=== PATIENT | female | born 1970 | race African-American/Black ===

== ENCOUNTER 2018-11-05 21:35 | Emergency (ER) | payer OTHER ==
[~2018-11-05] VITALS: Ht 165.1 cm; Wt 54.0 kg
[~2018-11-05 21:35] MED LIST: LEVAQUIN500 MG ORAL; MONTELUKAST SOD10 MG
[2018-11-05 21:45] VITALS: BP 98/62
--- NOTE | 2018-11-05 21:45 | NUR ---
ED Nurse Note: Pt's aged or disabled carer report Pt haven't have BM for 2 weeks. pt is alert but not oriented, pt came in with caregiver. ermd on bedside. will continue to monitor.
--- NOTE | 2018-11-05 21:58 | Emergency Room Report ---
History of Present Illness General Chief Complaint: Constipation Source: Caregiver Present Illness HPI This is a 48-year-old female with abdominal delay. She has a history of recurrent sigmoid volvulus. She presents with chief complaint of constipation for 2 days. No pain. She was brought in by her relocation commissioner. This is similar to previous presentation of blockage. She never had elective surgery done. No nausea no vomiting. No diarrhea. No bowel movement for 2 days. Denies any other complaint. Allergies: Coded Allergies: ERYTHROMYCIN BASE (Unverified Allergy, Unknown, 01/31/15) Patient History Past Medical History: asthma Past Surgical History: none Pertinent Family History: none Social History: Denies: smoking Now: No Immunizations: other Reviewed Nursing Documentation: PMH: Agreed; PSxH: Agreed Nursing Documentation-PMH Hx Asthma: Yes Hx Cancer: No Hx Gastrointestinal Problems: No Review of Systems Eye: Denies: eye pain, blurred vision ENT: Denies: ear pain, nose congestion, throat swelling Respiratory: Denies: cough, shortness of breath Cardiovascular: Denies: chest pain, palpitations Gastrointestinal: Reports: constipation; Denies: abdominal pain, diarrhea, nausea, vomiting Musculoskeletal: Denies: back pain, joint pain Skin: Denies: rash Neurological: Denies: headache, numbness Endocrine: Denies: increased thirst, increased urine Hematologic/Lymphatic: Denies: easy bruising All Other Systems: negative except mentioned in HPI Physical Exam Vital Signs Date Time Temp Pulse Resp B/P (MAP) Pulse Ox O2 Delivery O2 Flow Rate FiO2 11/05/18 21:41 97.9 80 18 98/62 98 Room Air vitals normal Sp02 EP Interpretation: reviewed, normal General Appearance: well appearing, no apparent distress, alert Head: normocephalic, atraumatic Eyes: bilateral eye PERRL, bilateral eye EOMI ENT: hearing grossly normal, normal pharynx Neck: full range of motion, supple, no meningismus Respiratory: chest non-tender, lungs clear, normal breath sounds Cardiovascular #1: regular rate, rhythm, no murmur Gastrointestinal: normal bowel sounds, non tender, no mass, no organomegaly, no bruit, non-distended Musculoskeletal: back normal, gait/station normal, normal range of motion Psychiatric: mood/affect normal Skin: warm/dry Medical Decision Making Diagnostic Impression: Primary Impression: Partial bowel obstruction Qualified Codes: K56.600 - Partial intestinal obstruction, unspecified as to cause Additional Impressions: UTI (urinary tract infection) Qualified Codes: N30.00 - Acute cystitis without hematuria Constipation Qualified Codes: K59.00 - Constipation, unspecified Mentally disabled ER Course This is a 48-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 She presents with constipation and abdominal pain. CT scan is equivocal for partial obstruction versus vomitus versus constipation. She does have large colonic stool burden. I discussed the case with the radiologist going for CT scan. He recommend another CT scan with rectal contrast. I did gave the patient an enema prior to the CT scan. She did have one large hard stool size of a tennis ball. Second CT scan show constipation been no evidence of obstruction. Patient felt better. We'll discharge home. Laboratory Tests Test 11/05/18 22:10 11/05/18 22:13 White Blood Count 6.7 K/UL (4.8-10.8) Red Blood Count 4.67 M/UL (4.20-5.40) Hemoglobin 12.3 G/DL (12.0-16.0) Hematocrit 38.4 % (37.0-47.0) Mean Corpuscular Volume 82 FL (80-99) Mean Corpuscular Hemoglobin 26.4 PG (27.0-31.0) L Mean Corpuscular Hemoglobin Concent 32.1 G/DL (32.0-36.0) Red Cell Distribution Width 11.4 % (11.6-14.8) L Platelet Count 282 K/UL (150-450) Mean Platelet Volume 6.4 FL (6.5-10.1) L Neutrophils (%) (Auto) 55.6 % (45.0-75.0) Lymphocytes (%) (Auto) 28.5 % (20.0-45.0) Monocytes (%) (Auto) 12.5 % (1.0-10.0) H Eosinophils (%) (Auto) 2.4 % (0.0-3.0) Basophils (%) (Auto) 1.0 % (0.0-2.0) Prothrombin Time 11.2 SEC (9.30-11.50) Prothromb Time International Ratio 1.1 (0.9-1.1) Activated Partial Thromboplast Time 25 SEC (23-33) Sodium Level 140 MMOL/L (136-145) Potassium Level 3.8 MMOL/L (3.5-5.1) Chloride Level 106 MMOL/L (98-107) Carbon Dioxide Level 28 MMOL/L (21-32) Anion Gap 6 mmol/L (5-15) Blood Urea Nitrogen 11 mg/dL (7-18) Creatinine 1.0 MG/DL (0.55-1.30) Estimat Glomerular Filtration Rate > 60 mL/min (>60) Glucose Level 84 MG/DL (74-106) Calcium Level 8.7 MG/DL (8.5-10.1) Urine Color Pale yellow Urine Appearance Slightly cloudy Urine pH 6.5 (4.5-8.0) Urine Specific [place] 1.010 (1.005-1.035) Urine Protein Negative (NEGATIVE) Urine Glucose (UA) Negative (NEGATIVE) Urine Ketones Negative (NEGATIVE) Urine Blood 2+ (NEGATIVE) H Urine Nitrite Positive (NEGATIVE) H Urine Bilirubin Negative (NEGATIVE) Urine Urobilinogen Normal MG/DL (0.0-1.0) Urine Leukocyte Esterase 1+ (NEGATIVE) H Urine RBC 2-4 /HPF (0 - 2) H Urine WBC 2-4 /HPF (0 - 2) Urine Squamous Epithelial Cells Occasional /LPF Urine Bacteria Many /HPF (NONE) H Urine HCG, Qualitative Negative (NEGATIVE) Lab Results Impression labs unremarkable CT/MRI/US Diagnostic Results CT/MRI/US Diagnostic Results #1: Imaging Test Ordered: CT abdomen and pelvis Impression Large colonic stool burden within the ascending through transverse segment. There is a redundant loop of sigmoid colon which is mildly dilated with air distention measuring up to 8 cm caliber with a somewhat abrupt transition to a small caliber in the lower central abdomen equivocal for prominent contraction or partial obstruction, with moderate distention of the downstream rectum noted. Correlate with clinical findings. No visualized free air. There is mild free fluid which may be reactive. The small bowel demonstrates multiple moderately distended fluid-filled loops as well as feculent material within the distal small bowel suggesting a decreased motility. Mild gallbladder wall thickening which could be related to partial contraction. Mild pelvic free fluid. Urinary bladder wall thickening, possibly related to under distention. Correlate with urinalysis if indicated. No evidence for obstructive uropathy. CT/MRI/US Diagnostic Results #2: Imaging Test Ordered: CT abdomen and pelvis Impression Read by radiologist. Constipation but no obstruction. Last Vital Signs Date Time Temp Pulse Resp B/P (MAP) Pulse Ox O2 Delivery O2 Flow Rate FiO2 11/05/18 21:41 97.9 80 18 98/62 98 Room Air Status: improved Disposition: HOME, SELF-CARE Condition: Stable Scripts Cephalexin* (KEFLEX*) 500 Mg Capsule 500 MG ORAL TID, #21 CAP Prov: Amado Polanco MD 11/06/18 Lactulose (LACTULOSE*) 20 Gm/30 Ml Solution 30 ML ORAL DAILY for constipation, #420 ML 0 Refills Prov: Amado Polanco MD 11/06/18 Patient Instructions: Constipation, Adult Additional Instructions: Increase fiber and water. Follow-up with your doctor in 7 days. Recommend referral to see a surgeon regarding possible surgery. Return if worse. Amado Polanco MD Nov 05, 2018 21:58
[2018-11-05] MEDS ORDERED: Isovue-300 100ml vial INJ PRN (22:00)
[2018-11-05 22:17] LABS: EOSINOPHILS % (AUTO) 2.4 % (0.0-3.0); HEMATOCRIT 38.4 % (37.0-47.0); HEMOGLOBIN 12.3 G/DL (12.0-16.0); LYMPHOCYTES % (AUTO) 28.5 % (20.0-45.0); MEAN CORPUSCULAR VOLUME 82 FL (80-99); MONOCYTES % (AUTO) 12.5 % (1.0-10.0); NEUTROPHILS % (AUTO) 55.6 % (45.0-75.0); PLATELET COUNT 282 K/UL (150-450); RED BLOOD COUNT 4.67 M/UL (4.20-5.40); RED CELL DISTRIBUTION WIDTH 11.4 % (11.6-14.8); WHITE BLOOD COUNT 6.7 K/UL (4.8-10.8)
[2018-11-05 22:25] LABS: APPEARANCE,URINE SLIGHTLY CLOUDY; BILIRUBIN, URINE NEGATIVE (NEGATIVE); COLOR,URINE PALE YELLOW; GLUCOSE, URINE (UA) NEGATIVE (NEGATIVE); KETONES,URINE NEGATIVE (NEGATIVE); LEUKOCYTE ESTERASE ,URINE 1+ (NEGATIVE); NITRITE,URINE POSITIVE (NEGATIVE); PH,URINE 6.5 (4.5-8.0); PROTEIN,URINE NEGATIVE (NEGATIVE); UROBILINOGEN,URINE NORMAL MG/DL (0.0-1.0)
[2018-11-05 22:27] LABS: ANION GAP 6 mmol/L (5-15); BLOOD UREA NITROGEN 11 mg/dL (7-18); CALCIUM 8.7 MG/DL (8.5-10.1); CARBON DIOXIDE 28 MMOL/L (21-32); CHLORIDE 106 MMOL/L (98-107); POTASSIUM 3.8 MMOL/L (3.5-5.1); SODIUM 140 MMOL/L (136-145)
--- NOTE | 2018-11-05 22:29 | NUR ---
ED Nurse Note: pt went to ct with tech. accompanied by caregiver.
[2018-11-05 22:31] LABS: INR 1.1 (0.9-1.1)
--- NOTE | 2018-11-05 22:40 | NUR ---
ED Nurse Note: pt went back from ct with tech accompanied by caregiver. will continue to monitor
[2018-11-05] MEDS ORDERED: cefTRIAXone 1 GM in NS 55 ML IVPB ONE (23:00)
[2018-11-05] MEDS ORDERED: Fleet's Enema 133ml RECTAL ONE (23:30)
--- NOTE | 2018-11-05 23:31 | NUR ---
ED Nurse Note: andersond ordered fleet enema and carried out, pt unable to pass bm at the moment. andersond made aware.
[2018-11-06] MEDS ORDERED: Gastrograffin 30ml RECTAL PRN
--- NOTE | 2018-11-06 00:10 | NUR ---
ED Nurse Note: kami ordered fleet enema and carried out. pt assisted to bedside commode and pt able to pass a bm with a size of tennis ball. and watery stool. kami made aware. will continue to monitor.
[2018-11-06] MEDS ORDERED: Fleet's Enema 133ml RECTAL ONE (00:15)
--- NOTE | 2018-11-06 01:27 | NUR ---
ED Nurse Note: pt went back from ct with tech.
[2018-11-06] MEDS ORDERED: CEPHALEXIN500 MG ORAL (02:19)
[2018-11-06] MEDS ORDERED: LACTULOSE20 GM/301 ORAL (02:19)
[2018-11-06 02:22] VITALS: BP 115/75
--- NOTE | 2018-11-06 02:22 | NUR ---
ED Nurse Note: Patient is being discharged cleared by ER PA. discharge paper/instruction given to the care management assistant, caregiver verbalized understanding. ambulated out of Ed with steady gait, with all belongings. ID band removed.
--- NOTE | 2018-11-06 11:46 | Diagnostic Imaging Report ---
Indication: Abdominal pain. Constipation Technique: Spiral acquisitions obtained through the abdomen and pelvis. No oral contrast utilized, per emergency room physician request No IV contrast utilized, per referring physician request.. Multiplanar reconstructions were generated. Total dose length product 483.85 mGycm. CTDIvol(s) 9.6 mGy. Dose reduction achieved using automated exposure control Comparison: 01/31/2015 Findings: Exam is limited due to patient body habitus and. Lack of abdominal fat, lack of enteric contrast administration The sigmoid colon is gas-filled, upper limits of normal caliber in the most cephalad segment with possible areas of narrowing near the mesenteric root both proximally and distally. Haustrations are preserved and there is no wall thickening. However, previously demonstrated massive sigmoid distention is no longer evident. The ascending colon is stool-filled, upper limits of normal in caliber. The appendix is not visualized, but no findings to suspect used acute appendicitis are evident. No evidence of diverticulosis or diverticulitis Prominent fluid-filled small bowel loops are seen in the left side of the abdomen, without definite transition point. Distal small bowel containing small bowel feces. Numerous hyperdensities, presumably ingested tablets, are seen throughout the small bowel The distal esophagus, stomach, duodenum are unremarkable. There is trace free pelvic fluid. No intraperitoneal gas Lack of IV contrast limits assessment of solid organs. The gallbladder is nondistended. The liver, pancreas, spleen, adrenals, kidneys are unremarkable. Prominent but not frankly enlarged retroperitoneal nodes are demonstrated. The uterus and adnexal structures are unremarkable. The included lung bases are clear. The bones are unremarkable Impression: Borderline distended redundant sigmoid colon with apparent narrowing of the proximal and distal sigmoid mesenteric root, but normal relation of the proximal and distal segments to one another. Suspect findings represent atonic redundant sigmoid related to prior episodes of sigmoid volvulus. However, partial or intermittent sigmoid volvulus is not completely excludable. Further evaluation with rectal contrast may be useful Large colonic stool burden Mildly prominent fluid-filled small bowel loops with distal small bowel feces, suggestive of decreased motility. No definite small bowel obstruction Limited assessment of solid organs, no gross abnormality This agrees with the preliminary interpretation provided overnight by [facility]. The CT scanner at [facility] is accredited by the [employer] and the scans are performed using protocols designed to limit radiation exposure to as low as reasonably achievable to attain images of sufficient resolution adequate for diagnostic evaluation.
--- NOTE | 2018-11-06 12:00 | Diagnostic Imaging Report ---
Indication: Abdominal pain for 3 days Technique: Spiral acquisitions obtained through the abdomen and pelvis. Patient was given rectal contrast. No IV contrast utilized, per referring physician request.. Multiplanar reconstructions were generated. Total dose length product 565.62 mGycm. CTDIvol(s) 12.1 mGy. Dose reduction achieved using automated exposure control Comparison: 3 hours earlier Findings: Instilled rectal contrast traverses the distal sigmoid and extensive slight extent into the proximal sigmoid. Previously suspected narrow transition segment distends with the contrast administration. The colon wall is not thickened and the proximal and distal sigmoid demonstrated normal lateral relationship.. There is some apparent wall thickening of the distal colon and rectum. However, this area was more distended on the previous exam and does not appear to be thick walled at that time The appendix is visible on the current exam and appears normal. Considerable colonic stool burden in the proximal colon is again demonstrated. Again demonstrated is distal small bowel feces, prominent fluid-filled proximal and mid small bowel loops. Small amount of free pelvic fluid is again demonstrated. The distal esophagus is equivocally somewhat thick walled. The stomach is nondistended. The gallbladder is slightly more distended and wall does not appear to be thickened. No gallstones. Lack of IV contrast limits assessment of the solid organs. The liver, pancreas, spleen, adrenals, kidneys are unremarkable. No retroperitoneal or mesenteric mass or adenopathy. No pelvic mass or adenopathy. Normal uterus and adnexal structures. The included lung bases are clear. The bones are unremarkable. Impression: Although the contrast does not completely traverse the sigmoid, there appears to be normal sigmoid configuration and previously suggested narrowed transition is distended. Appearance of the colon is most likely functional in nature without definite acute pathology Other stable findings as described This agrees with the preliminary interpretation provided overnight by [facility]. The CT scanner at [facility] is accredited by the [employer] and the scans are performed using protocols designed to limit radiation exposure to as low as reasonably achievable to attain images of sufficient resolution adequate for diagnostic evaluation.
== END 2018-11-06 02:22 | disposition home or self-care (01) ==
LOC: EMR 22:00 → 4E 11-06 00:29 → UNDOADMIN 11-06 00:29 → EDBEDREQ 11-06 01:57
DX: K56.600 Partial intestinal obstruction, unspecified as to cause (principal); N39.0 Urinary tract infection, site not specified; J45.909 Unspecified asthma, uncomplicated; Z88.1 Allergy status to other antibiotic agents
CPT/HCPCS: 36415; 74176; 80048; 81003; 81025; 85025; 85610; 85730; 87086; 87181; 96361; 96365; 99284; J0696

== ENCOUNTER 2019-09-01 10:52 | Inpatient (IN) | payer OTHER ==
[~2019-09-01] VITALS: Ht 162.6 cm; Wt 49.9 kg
[~2019-09-01 10:52] MED LIST changes: +CEPHALEXIN500 MG ORAL; +LACTULOSE20 GM/301 ORAL
[2019-09-01 11:10] VITALS: BP 128/77
--- NOTE | 2019-09-01 11:10 | NUR ---
ED Nurse Note: pt walked with caregiver from [facility] due to distended abdominal with n/v since Sun. pt is non-verbal. follow the command. caregiver does not know when was last bowel movenent. denies any diarrheas. pt came with diaper. respirations even and non-labored noted. skin warm to touch. on [employer]. no vomiting noted. will wait for the further order.
--- NOTE | 2019-09-01 12:13 | NUR ---
ED Nurse Note: Asim [facility] [phone] May asim [phone]
[2019-09-01 12:45] LABS: HEMATOCRIT 43.7 % (37.0-47.0); HEMOGLOBIN 14.3 G/DL (12.0-16.0); MEAN CORPUSCULAR VOLUME 82 FL (80-99); PLATELET COUNT 288 K/UL (150-450); RED BLOOD COUNT 5.32 M/UL (4.20-5.40); RED CELL DISTRIBUTION WIDTH 11.1 % (11.6-14.8); WHITE BLOOD COUNT 15.5 K/UL (4.8-10.8)
[2019-09-01 12:50] LABS: ANION GAP 12 mmol/L (5-15); BLOOD UREA NITROGEN 20 mg/dL (7-18); CALCIUM 9.4 MG/DL (8.5-10.1); CARBON DIOXIDE 25 MMOL/L (21-32); CHLORIDE 104 MMOL/L (98-107); CREATININE 0.8 MG/DL (0.55-1.30); POTASSIUM 3.2 MMOL/L (3.5-5.1); SODIUM 141 MMOL/L (136-145)
--- NOTE | 2019-09-01 12:57 | Emergency Room Report ---
History of Present Illness General Chief Complaint: Abdominal Pain Source: Patient Present Illness HPI Patient is a 49-year-old female who is developmentally delayed brought in by her caregiver. Patient was noted to have prior history of sigmoid volvulus in the past. She had previous surgical resection of her colon. She had presented after increased abdominal distention over the past few days. She has been vomiting. She had not had any bowel movements. Unclear if she was passing some gas. Allergies: Coded Allergies: ERYTHROMYCIN BASE (Unverified Allergy, Unknown, 01/31/15) Patient History Past Medical History: see triage record Reviewed Nursing Documentation: PMH: Agreed; PSxH: Agreed Nursing Documentation-PMH Past Medical History: No History, Except For Hx Asthma: Yes Hx Cancer: No Hx Gastrointestinal Problems: No Review of Systems All Other Systems: negative except mentioned in HPI Physical Exam Vital Signs Date Time Temp Pulse Resp B/P (MAP) Pulse Ox O2 Delivery O2 Flow Rate FiO2 09/01/19 10:59 97.5 98 16 120/77 (91) 98 Room Air Sp02 EP Interpretation: reviewed, normal General Appearance: normal inspection, alert, Chronically Ill Head: atraumatic ENT: normal ENT inspection, hearing grossly normal, normal voice Neck: normal inspection, full range of motion, supple, no bony tend Respiratory: normal inspection, lungs clear, normal breath sounds, no respiratory distress, no retraction, no wheezing Cardiovascular #1: regular rate, rhythm, no edema Gastrointestinal: soft, distended, tenderness Musculoskeletal: back normal Neurologic: alert, responsive Psychiatric: depressed affect Skin: no rash Medical Decision Making Diagnostic Impression: Primary Impression: Development delay Additional Impressions: Abdominal distension UTI (urinary tract infection) ER Course Patient presented for increased abdominal pain. Differential diagnosis include was not limited to fecal impaction, bowel obstruction, ileus, colitis among others. Because of complexity of patient's case laboratory tests and imaging studies were ordered. Patient was noted to have concerning distention. Abdomen was noted to be somewhat tense. KUB showed some nonspecifically dilated large bowel. CT imaging subsequently ordered. Patient was given enema and CT was ordered with contrast. Patient was discussed with Dr. Calixto as well as general surgeon Dr. Wilkins who was contacted for surgical consult. Patient will be admitted for further evaluation and treatment of the abdominal distention. Labs Test 09/01/19 11:30 White Blood Count 15.5 K/UL (4.8-10.8) Red Blood Count 5.32 M/UL (4.20-5.40) Hemoglobin 14.3 G/DL (12.0-16.0) Hematocrit 43.7 % (37.0-47.0) Mean Corpuscular Volume 82 FL (80-99) Mean Corpuscular Hemoglobin 26.8 PG (27.0-31.0) Mean Corpuscular Hemoglobin Concent 32.6 G/DL (32.0-36.0) Red Cell Distribution Width 11.1 % (11.6-14.8) Platelet Count 288 K/UL (150-450) Mean Platelet Volume 6.4 FL (6.5-10.1) Neutrophils (%) (Auto) % (45.0-75.0) Lymphocytes (%) (Auto) % (20.0-45.0) Monocytes (%) (Auto) % (1.0-10.0) Eosinophils (%) (Auto) % (0.0-3.0) Basophils (%) (Auto) % (0.0-2.0) Differential Total Cells Counted 100 Neutrophils % (Manual) 84 % (45-75) Lymphocytes % (Manual) 3 % (20-45) Monocytes % (Manual) 13 % (1-10) Eosinophils % (Manual) 0 % (0-3) Basophils % (Manual) 0 % (0-2) Band Neutrophils 0 % (0-8) Platelet Estimate Adequate Platelet Morphology Normal Prothrombin Time 10.7 SEC (9.30-11.50) Prothromb Time International Ratio 1.0 (0.9-1.1) Activated Partial Thromboplast Time 18 SEC (23-33) Sodium Level 141 MMOL/L (136-145) Potassium Level 3.2 MMOL/L (3.5-5.1) Chloride Level 104 MMOL/L (98-107) Carbon Dioxide Level 25 MMOL/L (21-32) Anion Gap 12 mmol/L (5-15) Blood Urea Nitrogen 20 mg/dL (7-18) Creatinine 0.8 MG/DL (0.55-1.30) Estimat Glomerular Filtration Rate > 60 mL/min (>60) Glucose Level 120 MG/DL (74-106) Calcium Level 9.4 MG/DL (8.5-10.1) Total Bilirubin 0.4 MG/DL (0.2-1.0) Aspartate Amino Transf (AST/SGOT) 24 U/L (15-37) Alanine Aminotransferase (ALT/SGPT) 27 U/L (12-78) Alkaline Phosphatase 88 U/L (46-116) Troponin I 0.001 ng/mL (0.000-0.056) Total Protein 8.9 G/DL (6.4-8.2) Albumin 4.0 G/DL (3.4-5.0) Globulin 4.9 g/dL Albumin/Globulin Ratio 0.8 (1.0-2.7) Lipase 146 U/L (73-393) Urine Color Yellow Urine Appearance Clear Urine pH 6 (4.5-8.0) Urine Specific [place] 1.020 (1.005-1.035) Urine Protein 2+ (NEGATIVE) Urine Glucose (UA) Negative (NEGATIVE) Urine Ketones 1+ (NEGATIVE) Urine Blood 5+ (NEGATIVE) Urine Nitrite Negative (NEGATIVE) Urine Bilirubin Negative (NEGATIVE) Urine Urobilinogen 1 MG/DL (0.0-1.0) Urine Leukocyte Esterase 3+ (NEGATIVE) Urine RBC 20-30 /HPF (0 - 2) Urine WBC 5-10 /HPF (0 - 2) Urine Squamous Epithelial Cells Few /LPF (NONE/OCC) Urine Amorphous Sediment Moderate /LPF (NONE) Urine Bacteria Few /HPF (NONE) Urine Mucus Few /LPF (NONE/OCC) Human Chorionic Gonadotropin, Qual Negative (NEGATIVE) Hemoglobin A1c Uric Acid Phosphorus Level Magnesium Level Pro-B-Type Natriuretic Peptide Triglycerides Level Cholesterol Level LDL Cholesterol HDL Cholesterol Cholesterol/HDL Ratio Thyroid Stimulating Hormone (TSH) Free Thyroxine Free Triiodothyronine Test 09/03/19 05:55 White Blood Count 6.0 K/UL (4.8-10.8) Red Blood Count 4.56 M/UL (4.20-5.40) Hemoglobin 12.3 G/DL (12.0-16.0) Hematocrit 37.1 % (37.0-47.0) Mean Corpuscular Volume 81 FL (80-99) Mean Corpuscular Hemoglobin 27.0 PG (27.0-31.0) Mean Corpuscular Hemoglobin Concent 33.3 G/DL (32.0-36.0) Red Cell Distribution Width 10.8 % (11.6-14.8) Platelet Count 260 K/UL (150-450) Mean Platelet Volume 5.6 FL (6.5-10.1) Neutrophils (%) (Auto) 66.1 % (45.0-75.0) Lymphocytes (%) (Auto) 20.9 % (20.0-45.0) Monocytes (%) (Auto) 10.1 % (1.0-10.0) Eosinophils (%) (Auto) 1.8 % (0.0-3.0) Basophils (%) (Auto) 1.1 % (0.0-2.0) Sodium Level 141 MMOL/L (136-145) Potassium Level 3.8 MMOL/L (3.5-5.1) Chloride Level 107 MMOL/L (98-107) Carbon Dioxide Level 26 MMOL/L (21-32) Anion Gap 8 mmol/L (5-15) Blood Urea Nitrogen 5 mg/dL (7-18) Creatinine 0.7 MG/DL (0.55-1.30) Estimat Glomerular Filtration Rate > 60 mL/min (>60) Glucose Level 85 MG/DL (74-106) Calcium Level 8.6 MG/DL (8.5-10.1) Phosphorus Level 2.8 MG/DL (2.5-4.9) Magnesium Level 1.9 MG/DL (1.8-2.4) Total Bilirubin 0.4 MG/DL (0.2-1.0) Aspartate Amino Transf (AST/SGOT) 23 U/L (15-37) Alanine Aminotransferase (ALT/SGPT) 22 U/L (12-78) Alkaline Phosphatase 64 U/L (46-116) C-Reactive Protein, Quantitative 0.5 mg/dL (0.00-0.90) Total Protein 6.5 G/DL (6.4-8.2) Albumin 2.8 G/DL (3.4-5.0) Globulin 3.7 g/dL Albumin/Globulin Ratio 0.8 (1.0-2.7) Last Vital Signs Date Time Temp Pulse Resp B/P (MAP) Pulse Ox O2 Delivery O2 Flow Rate FiO2 09/01/19 11:10 98.1 88 21 128/77 100 Room Air Status: unchanged Disposition: ADMITTED INPATIENT Condition: Serious Referrals: NON PHYSICIAN (PCP) Jarad Steiner MD Sep 01, 2019 12:57
[2019-09-01 12:59] LABS: ALANINE AMINOTRANSFERASE 27 U/L (12-78); ALBUMIN/GLOBULIN RATIO 0.8 (1.0-2.7); ALKALINE PHOSPHATASE 88 U/L (46-116); ASPARTATE AMINO TRANSFERASE 24 U/L (15-37); BILIRUBIN,TOTAL 0.4 MG/DL (0.2-1.0)
[2019-09-01 13:30] VITALS: BP 134/83
[2019-09-01 13:45] LABS: APPEARANCE,URINE CLEAR; BILIRUBIN, URINE NEGATIVE (NEGATIVE); COLOR,URINE YELLOW; GLUCOSE, URINE (UA) NEGATIVE (NEGATIVE); KETONES,URINE 1+ (NEGATIVE); LEUKOCYTE ESTERASE ,URINE 3+ (NEGATIVE); NITRITE,URINE NEGATIVE (NEGATIVE); PH,URINE 6 (4.5-8.0); PROTEIN,URINE 2+ (NEGATIVE); UROBILINOGEN,URINE 1 MG/DL (0.0-1.0)
[2019-09-01 14:01] VITALS: BP 111/67
--- NOTE | 2019-09-01 14:05 | NUR ---
ED Nurse Note: pt lying in left side lateral position. no facial grimacing or moaning noted. will do enema before CT scan done.
--- NOTE | 2019-09-01 14:14 | Diagnostic Imaging Report ---
Indication: Abdominal pain Comparison: CT abdomen 11/06/2018 Single view of the abdomen obtained Findings: Dilated colon demonstrated. Moderate stool in the right hemicolon noted. Similar findings were seen on multiple prior exams. Sigmoid volvulus is not excludable. IMPRESSION: Distended colon, nonspecific.
[2019-09-01] MEDS ORDERED: Fleet's Enema 133ml RECTAL ONE (14:15)
[2019-09-01] MEDS ORDERED: UNOBMED (14:18)
--- NOTE | 2019-09-01 14:40 | NUR ---
telephone consent received from patients conservator( MARYCRUZ GOODWIN) for ct scan
--- NOTE | 2019-09-01 14:42 | NUR ---
consent given by conservator for ct abdomen pelvis
--- NOTE | 2019-09-01 15:41 | Consultation ---
History of Present Illness General Date patient seen: Sep 01, 2019 Chief Complaint: Abdominal Pain Present Illness HPI This is a very unfortunate 49-year-old female with developmental delay and multiple medical comorbidities who is a [id number] [place] that presented to [facility] with abdominal distention, nausea, vomiting. Patient brought in by caregivers. History obtained from caregivers and EMR as patient is nonverbal at baseline. States they have noticed worsening abdominal distention followed by recent nausea and nonbloody emesis. Has been having watery bowel movements. History of similar events prior and was diagnosed with volvulus which was decompressed and stabilized per report. Currently with leukocytosis, abnormal labs, KUB with bowel distention. Surgery called to evaluate and assist with care. Patient seen, patient evaluated, chart reviewed. Patient in the emergency department face grimacing unable to provide history. Allergies: Coded Allergies: ERYTHROMYCIN BASE (Unverified Allergy, Unknown, 01/31/15) Medication History Miscellaneous Medications Unable to Obtain Medications (Unable To Obtain Meds), (Reported) Discontinued Medications Cephalexin* (Keflex*), 500 MG ORAL TID Discontinued Reason: Therapy completed Lactulose (Lactulose*), 30 ML ORAL DAILY Discontinued Reason: Therapy completed Montelukast Sodium* (Montelukast Sodium*), (Reported) Discontinued Reason: Therapy completed Patient History Limited by: medical condition History Provided By: Medical Record, Caregiver, PMD Healthcare decision maker Resuscitation status Advanced Directive on File Past Medical/Surgical History Past Medical/Surgical History: (1) Hypokalemia (2) Volvulus (3) Tachycardia (4) Sepsis (5) Hypernatremia (6) Hypomagnesemia (7) Hypokalemia (8) Volvulus (9) Pyelonephritis (10) Development delay (11) UTI (urinary tract infection) (12) Mentally disabled (13) Abdominal distension Review of Systems ROS Narrative Cannot obtain given patient's baseline medical condition and not being verbal Physical Exam General Appearance: mild distress Lines, tubes and drains: peripheral HEENT: mucous membranes moist Neck: supple, normal inspection Respiratory/Chest: normal breath sounds, no respiratory distress, no accessory muscle use Cardiovascular/Chest: normal peripheral pulses, normal rate Abdomen: soft, no mass, hypoactive bowel sounds, distended, other Genitourinary/Rectal: other - Loose stool in rectal vault distended Extremities: no calf tenderness, normal capillary refill, non-pitting Skin Exam: warm/dry Neurologic: alert, other - Nonverbal at baseline Last 24 Hour Vital Signs Date Time Temp Pulse Resp B/P (MAP) Pulse Ox O2 Delivery O2 Flow Rate FiO2 09/01/19 14:01 84 11 111/67 100 Room Air 09/01/19 11:10 98.1 88 21 128/77 100 Room Air 09/01/19 11:10 89 22 Room Air 09/01/19 10:59 97.5 98 16 120/77 (91) 98 Room Air Laboratory Tests Test 09/01/19 11:30 09/01/19 13:00 White Blood Count 15.5 K/UL (4.8-10.8) H Red Blood Count 5.32 M/UL (4.20-5.40) Hemoglobin 14.3 G/DL (12.0-16.0) Hematocrit 43.7 % (37.0-47.0) Mean Corpuscular Volume 82 FL (80-99) Mean Corpuscular Hemoglobin 26.8 PG (27.0-31.0) L Mean Corpuscular Hemoglobin Concent 32.6 G/DL (32.0-36.0) Red Cell Distribution Width 11.1 % (11.6-14.8) L Platelet Count 288 K/UL (150-450) Mean Platelet Volume 6.4 FL (6.5-10.1) L Neutrophils (%) (Auto) % (45.0-75.0) Lymphocytes (%) (Auto) % (20.0-45.0) Monocytes (%) (Auto) % (1.0-10.0) Eosinophils (%) (Auto) % (0.0-3.0) Basophils (%) (Auto) % (0.0-2.0) Differential Total Cells Counted 100 Neutrophils % (Manual) 84 % (45-75) H Lymphocytes % (Manual) 3 % (20-45) L Monocytes % (Manual) 13 % (1-10) H Eosinophils % (Manual) 0 % (0-3) Basophils % (Manual) 0 % (0-2) Band Neutrophils 0 % (0-8) Platelet Estimate Adequate Platelet Morphology Normal Prothrombin Time 10.7 SEC (9.30-11.50) Prothromb Time International Ratio 1.0 (0.9-1.1) Activated Partial Thromboplast Time 18 SEC (23-33) L Sodium Level 141 MMOL/L (136-145) Potassium Level 3.2 MMOL/L (3.5-5.1) L Chloride Level 104 MMOL/L (98-107) Carbon Dioxide Level 25 MMOL/L (21-32) Anion Gap 12 mmol/L (5-15) Blood Urea Nitrogen 20 mg/dL (7-18) H Creatinine 0.8 MG/DL (0.55-1.30) Estimat Glomerular Filtration Rate > 60 mL/min (>60) Glucose Level 120 MG/DL (74-106) H Calcium Level 9.4 MG/DL (8.5-10.1) Total Bilirubin 0.4 MG/DL (0.2-1.0) Aspartate Amino Transf (AST/SGOT) 24 U/L (15-37) Alanine Aminotransferase (ALT/SGPT) 27 U/L (12-78) Alkaline Phosphatase 88 U/L (46-116) Troponin I 0.001 ng/mL (0.000-0.056) Total Protein 8.9 G/DL (6.4-8.2) H Albumin 4.0 G/DL (3.4-5.0) Globulin 4.9 g/dL Albumin/Globulin Ratio 0.8 (1.0-2.7) L Lipase 146 U/L (73-393) Urine Color Yellow Urine Appearance Clear Urine pH 6 (4.5-8.0) Urine Specific [place] 1.020 (1.005-1.035) Urine Protein 2+ (NEGATIVE) H Urine Glucose (UA) Negative (NEGATIVE) Urine Ketones 1+ (NEGATIVE) H Urine Blood 5+ (NEGATIVE) H Urine Nitrite Negative (NEGATIVE) Urine Bilirubin Negative (NEGATIVE) Urine Urobilinogen 1 MG/DL (0.0-1.0) H Urine Leukocyte Esterase 3+ (NEGATIVE) H Urine RBC 20-30 /HPF (0 - 2) H Urine WBC 5-10 /HPF (0 - 2) H Urine Squamous Epithelial Cells Few /LPF (NONE/OCC) Urine Amorphous Sediment Moderate /LPF (NONE) H Urine Bacteria Few /HPF (NONE) Urine Mucus Few /LPF (NONE/OCC) H Height (Feet): 5 Height (Inches): 4.00 Weight (Pounds): 110 Medications Current Medications Medications (Trade) Dose Ordered Sig/Melchor Route PRN Reason Start Time Stop Time Status Last Admin Dose Admin Barium Sulfate (Readi-Cat 2) 450 ml NOW PRN ORAL Radiology Procedure 09/01/19 13:15 09/03/19 13:04 Assessment/Plan Problem List: (1) Abdominal distension Assessment & Plan: This is a 49-year-old female with significant medical comorbidities prior history of volvulus and chronic comorbidities who is nonverbal at baseline and care dependent presenting with abdominal distention nausea and emesis. On examination abdomen distended soft cannot significantly define tenderness but does grimace no peritoneal signs. Leukocytosis, abnormal labs. KUB noted Dilated colon demonstrated. Moderate stool in the right hemicolon noted. Similar Distended colon, nonspecific.. Pending CT abdomen pelvis. Does not seem to be volvulus at this time given KUB findings and wet read of the CT scan. Seemingly more distended colon throughout. Will await final CT read. No acute surgical intervention planned at this time. Recommend rectal tube GI evaluation for possible decompression colonoscopy C. diff Antibiotics as per infectious disease We will continue with work-up and follow with recommendations thank you for this consultation ICD Codes: R14.0 - Abdominal distension SNOMED: [id number] Tylor Wilkins Sep 01, 2019 15:41
--- NOTE | 2019-09-01 15:44 | NUR ---
ED Nurse Note: Reports given to Evelia, RN
[2019-09-01] MEDS ORDERED: Morphine Sulfate 2mg/ml Inj(IV/IM USE ONLY) IVP PRN (15:45)
--- NOTE | 2019-09-01 15:55 | Diagnostic Imaging Report ---
Indication: Abdominal pain Technique: Continuous helical transaxial imaging of the abdomen and pelvis was obtained from the lung bases to the pubic symphysis during intravenous contrast administration. Rectal contrast was also given. Coronal 2-D reformats were also obtained. Study obtained in a Siemens sensation [address] Automatic Exposure Control was utilized. Total Dose length Product (DLP): 717.[address] Dose Index Volume (CTDIvol): 12.7 mGy Comparison: 11/06/2018 CT Findings: There is good opacification of the rectum and sigmoid colon descending colon. Contrast is seen to about the level of the mid descending colon. The colon proximal to this is the well seen and the dilated as well. There is a moderate amount of fecal material present within the right hemicolon which is also dilated. There is no evidence of significant small bowel dilatation. There is limitation on this study due to artifact related to technique. The visualized part of the distal esophagus appears abnormal with thickening of the wall. Consider endoscopy. There is no free air or free fluid. The gallbladder is grossly unremarkable. The liver and spleen and kidneys are grossly unremarkable. Aorta is mildly calcified. IMPRESSION: No evidence of small or large bowel obstruction or sigmoid volvulus although the colon is moderately distended but in a diffuse fashion. Moderate retention of feces within the right hemicolon. Abnormal appearance of the distal esophagus showing moderate wall thickening. Consider evaluation within the osteopenic. Atherosclerotic vascular disease. Technically limited evaluation due to artifacts The CT scanner at [facility] is accredited by the [employer] and the scans are performed using dose optimization techniques as appropriate to a performed exam including Automatic Exposure control.
--- NOTE | 2019-09-01 16:15 | NUR ---
NURSE NOTES: Received patient from ED. Awake, non verbal. No SOB or acute distress. IV site on left AC intact and patent. Belongings checked. HOB elevated. Bed locked in lowest position. Call light within reach. Will continue plan of care.
[2019-09-01] MEDS: D5NS 1,000 ML IV SCH (18:16)
[2019-09-01] MEDS: cefTRIAXone 1 GM in D5W 55 ML IVPB SCH (18:16)
--- NOTE | 2019-09-01 19:29 | NUR ---
HAND-OFF: Report given to Abundio.
--- NOTE | 2019-09-01 19:30 | NUR ---
NURSE NOTES: Left message for Dr. Calixto regarding code status of patient. Awaiting callback.
--- NOTE | 2019-09-01 19:30 | NUR ---
NURSE NOTES: Received patient in bed. Patient is non-verbal. No signs of pain noted at this time. IV site intact in the Left AC running at 75 mL/hr.
[2019-09-01 20:00] VITALS: BP 100/50
--- NOTE | 2019-09-01 20:10 | NUR ---
NURSE NOTES: Rectal tube inserted. 45 mL used for placement.
[2019-09-01] MEDS ORDERED: SINGULAIR10 MG ORAL (20:53)
--- NOTE | 2019-09-01 21:10 | NUR ---
NURSE NOTES: Spoke with [place] [phone]. Patient taking singulair 10mg tab daily at home. Also requesting if patient can have test d/t distended abdomen. Left message to Dr. Calixto re: code status, DVT prophylaxis, and test. Awaiting response.
--- NOTE | 2019-09-01 21:20 | NUR ---
NURSE NOTES: Called Becca Brandt (KOKO) and left a message regarding the patient's code status.
--- NOTE | 2019-09-01 22:00 | Consultation ---
DATE OF CONSULTATION: 09/01/2019 GASTROENTEROLOGY CONSULTATION CONSULTING PHYSICIAN: Roxann Crowell M.D. CHIEF COMPLAINT: I was asked to see this patient by Dr. Kyleigh Calixto for evaluation of abdominal issues. HISTORY OF PRESENT ILLNESS: The patient is a debilitated unfortunate 49-year-old woman with history of developmental delay who requires [id number] care who was brought in from board and care due to abdominal distention, nausea, vomiting, diarrhea. The patient was brought by caregivers. No history is obtainable from the patient herself as she is nonverbal. The information is only available from the chart and medical records. The patient has a degree of leukocytosis, but her CT scan is otherwise unimpressive. PAST MEDICAL HISTORY: History of developmental delay. FAMILY HISTORY: Unavailable. SOCIAL HISTORY: The patient lives in a board and care. Otherwise, no history is available. REVIEW OF SYSTEMS: Unobtainable. ALLERGIES: Erythromycin base. PHYSICAL EXAMINATION: GENERAL: Debilitated woman, who was not cooperative with examination. She was arousable, but she would not allow much of detailed examination. HEENT: Normocephalic, atraumatic. NECK: Appeared supple. CHEST: Revealed coarse breath sounds. CARDIOVASCULAR: Regular a rhythm and rate. ABDOMEN: Soft, nondistended with good bowel sounds. EXTREMITIES: Revealed no edema. The patient remained in the position for most of the examination. Laboratory data were noted. CT scan was reviewed. ASSESSMENT: This patient presents with apparent abdominal distention, nausea, vomiting, and diarrhea. She appears to have improved now with conservative management. She does have some leukocytosis, but her CT unimpressive. I would give broad-spectrum antibiotics and follow her exam closely. As this maybe a case of gastroenteritis that can be followed conservatively. Should she worsen, then further evaluation maybe necessary. RECOMMENDATIONS: Per above discussion and per orders in the chart. Thank you for asking me to participate in the care of this patient. Roxann Crowell M.D. DR: BASIL JOB#: [id number] CC:
[2019-09-02] VITALS: BP 99/60
--- NOTE | 2019-09-02 01:34 | Consultation ---
DATE OF CONSULTATION: 09/01/2019 INFECTIOUS DISEASE CONSULTATION CONSULTING PHYSICIAN: Gerson Mancera M.D. PRIMARY ATTENDING PHYSICIAN: Kyleigh Calixto M.D. REASON FOR CONSULT: Leukocytosis. HISTORY OF PRESENT ILLNESS: This is a 49-year-old female, admitted today from a board and [facility] facility because of abdominal distention, nausea, vomiting, and also watery diarrhea. The patient has developmental delay and is not a source of history. PAST MEDICAL HISTORY: Significant for Volvulus, UTI, and developmental delay. ALLERGIES: Allergic to erythromycin. MEDICATIONS: Getting famotidine, Tylenol, morphine, Zofran, and lorazepam. SOCIAL HISTORY: She lives in a board and [facility]. Single. No other history obtainable. PHYSICAL EXAMINATION: VITAL SIGNS: Temperature 98, pulse 80, and blood pressure 127/71. GENERAL APPEARANCE: No acute distress. HEENT: Mucous membranes seem to be moist. HEART: Normal rate. LUNGS: Clear. ABDOMEN: Soft and nontender. EXTREMITIES: No edema. NEUROLOGIC: Awake, alert, nonverbal. LABORATORY AND DIAGNOSTIC DATA: Sodium 141, potassium 3.2, chloride 104, BUN 20, and creatinine 0.8. Glucose 120. Albumin is 4. WBC 15.5, hemoglobin 14.3, hematocrit 43.7, and platelets 288,000. CT scan of the abdomen and pelvis showed no evidence of bowel obstruction, moderate retention of feces getting in the right hemicolon, moderate abnormal appearance of distal esophagus with mild to moderate wall thickening, likely esophagitis. IMPRESSION: 1. Mild leukocytosis. 2. Abdominal distention, nausea, vomiting. 3. Mild hematuria with mild pyuria, may have UTi 4. Mild hypokalemia. RECOMMENDATION: We will give the patient ceftriaxone 1 g daily. We will follow up the cultures. We will follow up GI evaluation. At the end of my exam, I thank Dr. Calixto for involving me in the care of this patient. Gerson Mancera M.D. DR: KOKI JOB#: [id number] CC: JIMENEZ
--- NOTE | 2019-09-02 02:02 | History and Physical Report ---
DATE OF ADMISSION: 09/01/2019 HISTORY OF PRESENT ILLNESS: The patient admitted for following reasons, low potassium of 3.1 as well as abdominal pain and vomiting. History of sigmoid volvulus distended abdomen from the [facility] facility showed marked distention and WBC was elevated as well. CT with diffuse colonic distention . No surgery for now per Dr. Wilkins and DrJoselito recommended a rectal tube for the possible SBO. The patient has mental retardation. and cannot get a reliable history from the patient. PAST MEDICAL HISTORY: Possible mental retardation, history of volvulus, history of electrolyte imbalance, developmental delay. ALLERGIES: Erythromycin. MEDICATIONS: None. FAMILY HISTORY: Noncontributory. SOCIAL HISTORY: Unable to obtain. REVIEW OF SYSTEMS: Unable to obtain. The patient does not follow the neurological exam in any direction. PHYSICAL EXAMINATION: VITAL SIGNS: Temperature 98.1, pulse 89, blood pressure 128/77. HEENT: PERRLA. NECK: Supple. No lymphadenopathy. CHEST: Clear to auscultation. CARDIOVASCULAR: Regular rate and rhythm. No murmurs or extra sound. GASTROINTESTINAL: Soft, nontender, and nondistended. No organomegaly. EXTREMITIES: No edema. Reflexes on both sides. Does not follow neurological exam. LABORATORY DATA: WBC of 15.5, hemoglobin 14.6, hematocrit of 288. Sodium 141, potassium 3.2, chloride 104, BUN of 20, creatinine 0.8, glucose of 120. ASSESSMENT AND PLAN: Vomiting, abdominal pain, and also small bowel obstruction on the x-ray, history of electrolyte imbalance. Abdomen is soft. The patient is not in any acute distress. According to Dr. Wilkins, the patient does not need any surgery for now. Rectal physician recommended. SBO, vomiting, abdominal pain, electrolyte imbalance, developmental delay, nonverbal, and leukocytosis. I have asked Dr. Crowell, Dr. Caruso, Dr. Wilkins, and Dr. Gerson Mancera to see the patient for the above-mentioned diagnoses and treatment. Antibiotics per Dr. Gerson Mancera. Ali Alee Calixto DR: LEEANNE JOB#: [id number] CC:
[2019-09-02 04:00] VITALS: BP 103/98
[2019-09-02] MEDS: D5NS 1,000 ML IV SCH (06:00)
[2019-09-02 06:21] LABS: BASOPHILS % (AUTO) 0.4 % (0.0-2.0); EOSINOPHILS % (AUTO) 1.5 % (0.0-3.0); HEMATOCRIT 33.7 % (37.0-47.0); LYMPHOCYTES % (AUTO) 17.6 % (20.0-45.0); MEAN CORPUSCULAR VOLUME 81 FL (80-99); NEUTROPHILS % (AUTO) 71.4 % (45.0-75.0); PLATELET COUNT 270 K/UL (150-450); RED BLOOD COUNT 4.15 M/UL (4.20-5.40); RED CELL DISTRIBUTION WIDTH 10.7 % (11.6-14.8); WHITE BLOOD COUNT 6.8 K/UL (4.8-10.8)
[2019-09-02 06:40] LABS: INR 1.1 (0.9-1.1)
--- NOTE | 2019-09-02 07:02 | NUR ---
NURSE NOTES: Notified by [facility] that patient hasn't voided. Bladder scan showed 622cc. Left message to Dr. Calixto. Addendum: 09/02/19 at 0744 by ISRAEL SUAZO RN RN Lab called with critical value of K 2.7. Left another message to Dr. Calixto to call back.
[2019-09-02 07:27] LABS: ALANINE AMINOTRANSFERASE 18 U/L (12-78); ALBUMIN 2.5 G/DL (3.4-5.0); ALBUMIN/GLOBULIN RATIO 0.7 (1.0-2.7); ALKALINE PHOSPHATASE 58 U/L (46-116); ANION GAP 9 mmol/L (5-15); ASPARTATE AMINO TRANSFERASE 18 U/L (15-37); BILIRUBIN,TOTAL 0.3 MG/DL (0.2-1.0); BLOOD UREA NITROGEN 9 mg/dL (7-18); CARBON DIOXIDE 25 MMOL/L (21-32); CHLORIDE 111 MMOL/L (98-107); CHOLESTEROL 123 MG/DL (< 200); CREATININE 0.8 MG/DL (0.55-1.30); HDL CHOLESTEROL 62 MG/DL (40-60); SODIUM 145 MMOL/L (136-145); TRIGLYCERIDES 38 MG/DL (30-150)
[2019-09-02 07:29] LABS: POTASSIUM 2.7 MMOL/L (3.5-5.1)
--- NOTE | 2019-09-02 07:43 | NUR ---
HAND-OFF: Report given to Romario MERCADO.
[2019-09-02 08:40] VITALS: BP 131/67
--- NOTE | 2019-09-02 08:45 | NUR ---
RADIOLOGY DEPT., ABDOMEN AND CHEST X-RAYS PERFORMED FROM ER AND THIS MORNING.-NORMA
[2019-09-02] MEDS ORDERED: Montelukast 10mg tablet ORAL SCH (09:00)
--- NOTE | 2019-09-02 09:44 | Diagnostic Imaging Report ---
Indication: Cough Technique: One view of the chest Comparison: none Findings: There is slight blunting of the right costophrenic sulcus. The lungs and left pleural space are clear. The heart size is normal Impression: Possible small right pleural effusion No acute process otherwise
--- NOTE | 2019-09-02 10:29 | Infectious Diseases Prog Note ---
Assessment/Plan Assessment/Plan IMPRESSION: 1. leukocytosis resolved 2. Abdominal distention, nausea, vomiting.,gastroenteritis 3. Mild hematuria with mild pyuria, may have UTI 4. hypokalemia. 5. decreased albumin RECOMMENDATION: Continue ceftriaxone 1 g daily Subjective ROS Limited/Unobtainable: Yes Gastrointestinal/Abdominal: Reports: diarrhea Allergies: Coded Allergies: ERYTHROMYCIN BASE (Unverified Allergy, Unknown, 01/31/15) Objective Vital Signs Last 24 Hour Vital Signs Date Time Temp Pulse Resp B/P (MAP) Pulse Ox O2 Delivery O2 Flow Rate FiO2 09/02/19 08:40 97.3 82 20 131/67 (88) 98 09/02/19 04:00 98.9 92 20 103/98 (100) 98 09/02/19 00:00 99.1 18 99/60 (73) 99 09/01/19 21:00 Room Air 09/01/19 20:00 99.5 20 100/50 (67) 99 09/01/19 16:50 Room Air 09/01/19 15:43 98.0 80 15 127/71 99 Room Air 09/01/19 14:01 84 11 111/67 100 Room Air 09/01/19 11:10 98.1 88 21 128/77 100 Room Air 09/01/19 11:10 89 22 Room Air 09/01/19 10:59 97.5 98 16 120/77 (91) 98 Room Air Height (Feet): 5 Height (Inches): 4.00 Weight (Pounds): 110 General Appearance: no acute distress HEENT: mucous membranes moist Respiratory/Chest: lungs clear Cardiovascular: normal rate Abdomen: soft, non tender, other - rectal tube Extremities: no edema Neurologic/Psychiatric: alert, other - awake Microbiology Date/Time Source Procedure Growth Status 09/02/19 01:40 Stool Clostridium difficile Toxin Assay - Final Complete Laboratory Tests Test 09/01/19 11:30 09/01/19 13:00 09/01/19 21:35 09/02/19 05:40 White Blood Count 15.5 K/UL (4.8-10.8) H 6.8 K/UL (4.8-10.8) # Red Blood Count 5.32 M/UL (4.20-5.40) 4.15 M/UL (4.20-5.40) L Hemoglobin 14.3 G/DL (12.0-16.0) 11.0 G/DL (12.0-16.0) L Hematocrit 43.7 % (37.0-47.0) 33.7 % (37.0-47.0) L Mean Corpuscular Volume 82 FL (80-99) 81 FL (80-99) Mean Corpuscular Hemoglobin 26.8 PG (27.0-31.0) L 26.4 PG (27.0-31.0) L Mean Corpuscular Hemoglobin Concent 32.6 G/DL (32.0-36.0) 32.5 G/DL (32.0-36.0) Red Cell Distribution Width 11.1 % (11.6-14.8) L 10.7 % (11.6-14.8) L Platelet Count 288 K/UL (150-450) 270 K/UL (150-450) Mean Platelet Volume 6.4 FL (6.5-10.1) L 6.0 FL (6.5-10.1) L Neutrophils (%) (Auto) % (45.0-75.0) 71.4 % (45.0-75.0) Lymphocytes (%) (Auto) % (20.0-45.0) 17.6 % (20.0-45.0) L Monocytes (%) (Auto) % (1.0-10.0) 9.0 % (1.0-10.0) Eosinophils (%) (Auto) % (0.0-3.0) 1.5 % (0.0-3.0) Basophils (%) (Auto) % (0.0-2.0) 0.4 % (0.0-2.0) Differential Total Cells Counted 100 Neutrophils % (Manual) 84 % (45-75) H Lymphocytes % (Manual) 3 % (20-45) L Monocytes % (Manual) 13 % (1-10) H Eosinophils % (Manual) 0 % (0-3) Basophils % (Manual) 0 % (0-2) Band Neutrophils 0 % (0-8) Platelet Estimate Adequate Platelet Morphology Normal Prothrombin Time 10.7 SEC (9.30-11.50) 11.4 SEC (9.30-11.50) Prothromb Time International Ratio 1.0 (0.9-1.1) 1.1 (0.9-1.1) Activated Partial Thromboplast Time 18 SEC (23-33) L 23 SEC (23-33) Sodium Level 141 MMOL/L (136-145) 145 MMOL/L (136-145) Potassium Level 3.2 MMOL/L (3.5-5.1) L 2.7 MMOL/L (3.5-5.1) *L Chloride Level 104 MMOL/L (98-107) 111 MMOL/L (98-107) H Carbon Dioxide Level 25 MMOL/L (21-32) 25 MMOL/L (21-32) Anion Gap 12 mmol/L (5-15) 9 mmol/L (5-15) Blood Urea Nitrogen 20 mg/dL (7-18) H 9 mg/dL (7-18) Creatinine 0.8 MG/DL (0.55-1.30) 0.8 MG/DL (0.55-1.30) Estimat Glomerular Filtration Rate > 60 mL/min (>60) > 60 mL/min (>60) Glucose Level 120 MG/DL (74-106) H 90 MG/DL (74-106) Calcium Level 9.4 MG/DL (8.5-10.1) 8.0 MG/DL (8.5-10.1) L Total Bilirubin 0.4 MG/DL (0.2-1.0) 0.3 MG/DL (0.2-1.0) Aspartate Amino Transf (AST/SGOT) 24 U/L (15-37) 18 U/L (15-37) Alanine Aminotransferase (ALT/SGPT) 27 U/L (12-78) 18 U/L (12-78) Alkaline Phosphatase 88 U/L (46-116) 58 U/L (46-116) Troponin I 0.001 ng/mL (0.000-0.056) Total Protein 8.9 G/DL (6.4-8.2) H 5.9 G/DL (6.4-8.2) #L Albumin 4.0 G/DL (3.4-5.0) 2.5 G/DL (3.4-5.0) L Globulin 4.9 g/dL 3.4 g/dL Albumin/Globulin Ratio 0.8 (1.0-2.7) L 0.7 (1.0-2.7) L Lipase 146 U/L (73-393) Urine Color Yellow Urine Appearance Clear Urine pH 6 (4.5-8.0) Urine Specific [place] 1.020 (1.005-1.035) Urine Protein 2+ (NEGATIVE) H Urine Glucose (UA) Negative (NEGATIVE) Urine Ketones 1+ (NEGATIVE) H Urine Blood 5+ (NEGATIVE) H Urine Nitrite Negative (NEGATIVE) Urine Bilirubin Negative (NEGATIVE) Urine Urobilinogen 1 MG/DL (0.0-1.0) H Urine Leukocyte Esterase 3+ (NEGATIVE) H Urine RBC 20-30 /HPF (0 - 2) H Urine WBC 5-10 /HPF (0 - 2) H Urine Squamous Epithelial Cells Few /LPF (NONE/OCC) Urine Amorphous Sediment Moderate /LPF (NONE) H Urine Bacteria Few /HPF (NONE) Urine Mucus Few /LPF (NONE/OCC) H Human Chorionic Gonadotropin, Qual Negative (NEGATIVE) Hemoglobin A1c 5.2 % (4.3-6.0) Pro-B-Type Natriuretic Peptide 665 pg/mL (0-125) H Triglycerides Level 38 MG/DL (30-150) Cholesterol Level 123 MG/DL (< 200) LDL Cholesterol 46 mg/dL (<100) HDL Cholesterol 62 MG/DL (40-60) H Cholesterol/HDL Ratio 2.0 (3.3-4.4) L Current Medications Medications (Trade) Dose Ordered Sig/Melchor Route PRN Reason Start Time Stop Time Status Last Admin Dose Admin Acetaminophen (Tylenol) 650 mg Q4H PRN ORAL fever 09/01/19 15:45 10/01/19 15:44 Barium Sulfate (Readi-Cat 2) 450 ml NOW PRN ORAL Radiology Procedure 09/01/19 13:15 09/03/19 13:04 Ceftriaxone Sodium 1 gm/ Dextrose 55 ml @ 110 mls/hr Q24H IVPB 09/01/19 18:00 09/08/19 17:59 09/01/19 18:16 Dextrose (Dextrose 50%) 25 ml Q30M PRN IV Hypoglycemia 09/01/19 15:45 10/01/19 15:44 Dextrose (Dextrose 50%) 50 ml Q30M PRN IV Hypoglycemia 09/01/19 15:45 10/01/19 15:44 Dextrose/Sodium Chloride 1,000 ml @ 75 mls/hr [id number] IV 09/01/19 16:41 10/01/19 16:40 09/02/19 06:00 Famotidine (Pepcid I.v.) 20 mg Q12HR IVP 09/01/19 21:00 10/01/19 20:59 09/02/19 09:12 Lorazepam (Ativan 2mg/ml 1ml) 0.5 mg Q4H PRN IV For Anxiety 09/01/19 15:45 09/08/19 15:44 Montelukast Sodium (Singulair) 10 mg Q24H ORAL 09/02/19 16:00 10/02/19 15:59 Morphine Sulfate (Morphine Sulfate) 2 mg Q4H PRN IVP Moderate Pain (Pain Scale 4-6) 09/01/19 15:45 09/08/19 15:44 Ondansetron HCl (Zofran) 4 mg Q6H PRN IVP Nausea & Vomiting 09/01/19 15:45 10/01/19 15:44 Potassium Chloride 100 ml @ 100 mls/hr Q1HR IVPB 09/02/19 09:00 09/02/19 14:59 09/02/19 10:02 Gerson Mancera MD Sep 02, 2019 10:29
--- NOTE | 2019-09-02 11:01 | Consultation ---
Consult Note Consult Note asked to evaluate for fluid and electrolyte management Non verbal This is a very unfortunate 49-year-old female with developmental delay and multiple medical comorbidities who is a [id number] that presented to [facility] with abdominal distention, nausea, vomiting. Patient brought in by caregivers. History obtained from caregivers and EMR as patient is nonverbal at baseline. States they have noticed worsening abdominal distention followed by recent nausea and nonbloody emesis. Has been having watery bowel movements. History of similar events prior and was diagnosed with volvulus which was decompressed and stabilized per report. Currently with leukocytosis, abnormal labs, KUB with bowel distention. Surgery called to evaluate and assist with care. Patient seen, patient evaluated, chart reviewed. Patient in the emergency department face grimacing unable to provide history. Allergies: ERYTHROMYCIN BASE (Unverified Allergy, Unknown, 01/31/15) examined data reviewed Assessment/Plan Hypokalemia Hypernatremia Hypomagnesemia Dehydration Sepsis Volvulus Pyelonephritis Development delay UTI (urinary tract infection) Mentally disabled Abdominal distension IV KCL IV Fluid Per consultants check TSH on Osman Betancur MD Sep 02, 2019 11:01
--- NOTE | 2019-09-02 11:31 | NUR ---
RD ASSESSMENT & RECOMMENDATIONS SEE CARE ACTIVITY FOR COMPLETE ASSESSMENT DAILY ESTIMATED NEEDS: Needs based on GI, mild wasting; 50.7kg 25-30 kcals/kg 1268- 1521 total kcals 1-1.2 g protein/kg 51- 61 g total protein 25-30 mL/kg 4008-1785 total fluid mLs NUTRITION DIAGNOSIS: * Increased pro needs r/t mild wasting AEB pt w/ mild clavicular, BL UE wasting. * Altered GI function r/t possible volvulus AEB pt adm w/ n/v and abdominal distention, w/ h/o volvulus and constipation. PO DIET RECOMMENDATIONS: Regular diet- texture per CORPORATE ATTORNEY ADDITIONAL RECOMMENDATIONS: 1) Maintain calibrated bedscale wt; obtain standing as able 2) Monitor lytes- K 2.7*, replete as needed 3) Rec CORPORATE ATTORNEY eval for appropriate texture/ may require mealtime assistance 4) W/ diet order, add: PRUNES or Prune juice w/ meals Rec supplement: Ensure Enlive or Ensure Clear as tolerated 5) Bowel regimen as needed 6) F/up w/ MD DARIANA
[2019-09-02 12:00] VITALS: BP 111/71
[2019-09-02] MEDS: D5 1/2NS w/KCl 40meq 1000ml 1,000 ML IV SCH (12:28)
--- NOTE | 2019-09-02 13:25 | NUR ---
*-* INSURANCE *-* ALL CLINICALS AND REVIEWS HAVE BEEN FAXED TO: [place] Ref#[id number] CM: Kemi Dougherty#[phone] ext [phone] fax#[phone]
--- NOTE | 2019-09-02 14:48 | NUR ---
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 TO ER CC ABDOMINAL PAIN AND VOMITING X 2 DAYS SI; ABDOMINAL PAIN, POSSIBLE BOWEL OBSTRUCTION T. 97.5 HR 98 RR 16 B/P 120/77 WBC 15.5 K 3.2 BUN 20 UA= PROTEIN,KETONES,BLOOD, UROBILINOGEN,LEUKOCYTE ESTERASE,RBC,WBC,SQUAMOUS EPITH CELLS ABD X-RAY=DISTENDED COLON ABD CT= NO EVIDENCE OF A BOWEL OBSTRUCTION CXR= NO ACUTE PROCESS IS: IV BOLUS NS X 500ML PEPCID IV ZOFRAN IV ADMITTED TO MED/SURG @ 1544 MED/SURG STATUS DCP RETURN HOME
[2019-09-02 16:00] VITALS: BP 134/78
[2019-09-02] MEDS: Montelukast 10mg tablet ORAL SCH (16:17)
--- NOTE | 2019-09-02 17:49 | General Progress Note ---
Assessment/Plan Problem List: (1) Mentally disabled ICD Codes: F79 - Mentally disabled SNOMED: 44445367 (2) Abdominal distension ICD Codes: R14.0 - Abdominal distension SNOMED: 60517245 (3) UTI (urinary tract infection) ICD Codes: N39.0 - Urinary tract infection, site not specified SNOMED: 23750692 (4) Sepsis ICD Codes: A41.9 - Sepsis SNOMED: 00448469 (5) Hypokalemia ICD Codes: E87.6 - Hypokalemia SNOMED: 39175648 (6) Hypomagnesemia ICD Codes: E83.42 - Hypomagnesemia SNOMED: 235925667 Status: progressing Assessment/Plan: sbo surgeon is following abdomin is soft nonverbal mental delay uti abx per id afebrile Subjective ROS Limited/Unobtainable: Yes Allergies: Coded Allergies: ERYTHROMYCIN BASE (Unverified Allergy, Unknown, 01/31/15) Objective Last 24 Hour Vital Signs Date Time Temp Pulse Resp B/P (MAP) Pulse Ox O2 Delivery O2 Flow Rate FiO2 09/02/19 16:00 98.6 76 18 134/78 (96) 96 09/02/19 12:00 98.6 80 20 111/71 (84) 98 09/02/19 09:00 Room Air 09/02/19 08:40 97.3 82 20 131/67 (88) 98 09/02/19 04:00 98.9 92 20 103/98 (100) 98 09/02/19 00:00 99.1 18 99/60 (73) 99 09/01/19 21:00 Room Air 09/01/19 20:00 99.5 20 100/50 (67) 99 Intake and Output 09/01/19 09/02/19 18:59 06:59 Intake Total 500 ml 913 ml Balance 500 ml 913 ml Intake Oral 0 ml IV Total 500 ml 913 ml # Voids 1 # Bowel Movements 1 Laboratory Tests 09/01/19 21:35: Human Chorionic Gonadotropin, Qual Negative 09/02/19 05:40: White Blood Count 6.8#, Red Blood Count 4.15L, Hemoglobin 11.0L, Hematocrit 33.7L, Mean Corpuscular Volume 81, Mean Corpuscular Hemoglobin 26.4L, Mean Corpuscular Hemoglobin Concent 32.5, Red Cell Distribution Width 10.7L, Platelet Count 270, Mean Platelet Volume 6.0L, Neutrophils (%) (Auto) 71.4, Lymphocytes (%) (Auto) 17.6L, Monocytes (%) (Auto) 9.0, Eosinophils (%) (Auto) 1.5, Basophils (%) (Auto) 0.4, Prothrombin Time 11.4, Prothromb Time International Ratio 1.1, Activated Partial Thromboplast Time 23, Sodium Level 145, Potassium Level 2.7*L, Chloride Level 111H, Carbon Dioxide Level 25, Anion Gap 9, Blood Urea Nitrogen 9, Creatinine 0.8, Estimat Glomerular Filtration Rate > 60, Glucose Level 90, Hemoglobin A1c 5.2, Uric Acid 2.9, Calcium Level 8.0L, Phosphorus Level 3.0, Magnesium Level 2.0, Total Bilirubin 0.3, Aspartate Amino Transf (AST/SGOT) 18, Alanine Aminotransferase (ALT/SGPT) 18, Alkaline Phosphatase 58, Pro-B-Type Natriuretic Peptide 665H, Total Protein 5.9#L, Albumin 2.5L, Globulin 3.4, Albumin/Globulin Ratio 0.7L, Triglycerides Level 38 , Cholesterol Level 123, LDL Cholesterol 46, HDL Cholesterol 62H, Cholesterol/ HDL Ratio 2.0L, Thyroid Stimulating Hormone (TSH) 0.586, Free Thyroxine 1.06, Free Triiodothyronine 1.4L Height (Feet): 5 Height (Inches): 4.00 Weight (Pounds): 110 General Appearance: confused Neck: supple Cardiovascular: normal rate Kyleigh Calixto MD Sep 02, 2019 17:49
[2019-09-02] MEDS: cefTRIAXone 1 GM in D5W 55 ML IVPB SCH (18:08)
--- NOTE | 2019-09-02 19:18 | Surgery Progress Note ---
Surgery Progress Note Subjective Additional Comments No acute events. Exam stable. Labs noted. Leukocytosis resolved. Abnormal electrolytes being replaced. GI no reviewed and appreciated. Rectal tube in place. Abdominal exam improved. Objective Last 24 Hour Vital Signs Date Time Temp Pulse Resp B/P (MAP) Pulse Ox O2 Delivery O2 Flow Rate FiO2 09/02/19 16:00 98.6 76 18 134/78 (96) 96 09/02/19 12:00 98.6 80 20 111/71 (84) 98 09/02/19 09:00 Room Air 09/02/19 08:40 97.3 82 20 131/67 (88) 98 09/02/19 04:00 98.9 92 20 103/98 (100) 98 09/02/19 00:00 99.1 18 99/60 (73) 99 09/01/19 21:00 Room Air 09/01/19 20:00 99.5 20 100/50 (67) 99 I&O Intake and Output 09/01/19 09/02/19 18:59 06:59 Intake Total 500 ml 913 ml Balance 500 ml 913 ml Intake Oral 0 ml IV Total 500 ml 913 ml # Voids 1 # Bowel Movements 1 Cardiovascular: RSR Respiratory: clear Abdomen: soft, distended, non-tender, decreased bowel sounds Extremities: no cyanosis Laboratory Tests Test 09/01/19 21:35 09/02/19 05:40 Human Chorionic Gonadotropin, Qual Negative (NEGATIVE) White Blood Count 6.8 K/UL (4.8-10.8) # Red Blood Count 4.15 M/UL (4.20-5.40) L Hemoglobin 11.0 G/DL (12.0-16.0) L Hematocrit 33.7 % (37.0-47.0) L Mean Corpuscular Volume 81 FL (80-99) Mean Corpuscular Hemoglobin 26.4 PG (27.0-31.0) L Mean Corpuscular Hemoglobin Concent 32.5 G/DL (32.0-36.0) Red Cell Distribution Width 10.7 % (11.6-14.8) L Platelet Count 270 K/UL (150-450) Mean Platelet Volume 6.0 FL (6.5-10.1) L Neutrophils (%) (Auto) 71.4 % (45.0-75.0) Lymphocytes (%) (Auto) 17.6 % (20.0-45.0) L Monocytes (%) (Auto) 9.0 % (1.0-10.0) Eosinophils (%) (Auto) 1.5 % (0.0-3.0) Basophils (%) (Auto) 0.4 % (0.0-2.0) Prothrombin Time 11.4 SEC (9.30-11.50) Prothromb Time International Ratio 1.1 (0.9-1.1) Activated Partial Thromboplast Time 23 SEC (23-33) Sodium Level 145 MMOL/L (136-145) Potassium Level 2.7 MMOL/L (3.5-5.1) *L Chloride Level 111 MMOL/L (98-107) H Carbon Dioxide Level 25 MMOL/L (21-32) Anion Gap 9 mmol/L (5-15) Blood Urea Nitrogen 9 mg/dL (7-18) Creatinine 0.8 MG/DL (0.55-1.30) Estimat Glomerular Filtration Rate > 60 mL/min (>60) Glucose Level 90 MG/DL (74-106) Hemoglobin A1c 5.2 % (4.3-6.0) Uric Acid 2.9 MG/DL (2.6-7.2) Calcium Level 8.0 MG/DL (8.5-10.1) L Phosphorus Level 3.0 MG/DL (2.5-4.9) Magnesium Level 2.0 MG/DL (1.8-2.4) Total Bilirubin 0.3 MG/DL (0.2-1.0) Aspartate Amino Transf (AST/SGOT) 18 U/L (15-37) Alanine Aminotransferase (ALT/SGPT) 18 U/L (12-78) Alkaline Phosphatase 58 U/L (46-116) Pro-B-Type Natriuretic Peptide 665 pg/mL (0-125) H Total Protein 5.9 G/DL (6.4-8.2) #L Albumin 2.5 G/DL (3.4-5.0) L Globulin 3.4 g/dL Albumin/Globulin Ratio 0.7 (1.0-2.7) L Triglycerides Level 38 MG/DL (30-150) Cholesterol Level 123 MG/DL (< 200) LDL Cholesterol 46 mg/dL (<100) HDL Cholesterol 62 MG/DL (40-60) H Cholesterol/HDL Ratio 2.0 (3.3-4.4) L Thyroid Stimulating Hormone (TSH) 0.586 uiU/mL (0.358-3.740) Free Thyroxine 1.06 NG/DL (0.76-1.46) Free Triiodothyronine 1.4 pg/mL (2.3-4.2) L Plan Problems: (1) Abdominal distension Assessment & Plan: This is a 49-year-old female with significant medical comorbidities prior history of volvulus and chronic comorbidities who is nonverbal at baseline and care dependent presenting with abdominal distention nausea and emesis. On examination abdomen distended soft cannot significantly define tenderness but does grimace no peritoneal signs. Leukocytosis, abnormal labs. KUB noted Dilated colon demonstrated. Moderate stool in the right hemicolon noted. Similar Distended colon, nonspecific.. Pending CT abdomen pelvis. Does not seem to be volvulus at this time given KUB findings and wet read of the CT scan. Seemingly more distended colon throughout. Will await final CT read. No acute surgical intervention planned at this time. Recommend rectal tube GI evaluation noted we will continue to follow with serial exams C. diff Antibiotics as per infectious disease Abdominal exam somewhat improved today. Softer. Less distended. We will continue with work-up and follow with recommendations thank you for this consultation Tylor Wilkins Sep 02, 2019 19:18
--- NOTE | 2019-09-02 19:34 | NUR ---
HAND-OFF: Report given to Yuridia MERCADO.
[2019-09-02 20:00] VITALS: BP 110/64
--- NOTE | 2019-09-02 20:16 | NUR ---
NURSE NOTES: RECEIVED PT FROM ROGELIO CUELLAR. PT IS AWAKE, AAOX0, NON-VERBAL, ON ROOM AIR, NO ACUTE DISTRESS NOTED. RECTAL TUBE INTACT, DRAINING WELL. IV ON LEFT AC AND LEFT WRIST INTACT AND PATENT. BED IS LOCKED AND LOW, BED ALARMS ACTIVE, SIDE RAILS UPX2 AND CALL LIGHT IS WITHIN REACH. WILL CONTINUE TO MONITOR.
--- NOTE | 2019-09-02 22:22 | General Progress Note ---
Assessment/Plan Status: progressing Assessment/Plan: Assessment - N/V - resolved - diarrhea - C diff (-) - Leukocytosis - resolved - OBS Recommendations - Begin clears, if OK with surgery - replace lytes PRN Subjective Allergies: Coded Allergies: ERYTHROMYCIN BASE (Unverified Allergy, Unknown, 01/31/15) Subjective awake non verbal Objective Last 24 Hour Vital Signs Date Time Temp Pulse Resp B/P (MAP) Pulse Ox O2 Delivery O2 Flow Rate FiO2 09/02/19 21:00 Room Air 09/02/19 20:00 98.0 79 17 110/64 (79) 99 09/02/19 16:00 98.6 76 18 134/78 (96) 96 09/02/19 12:00 98.6 80 20 111/71 (84) 98 09/02/19 09:00 Room Air 09/02/19 08:40 97.3 82 20 131/67 (88) 98 09/02/19 04:00 98.9 92 20 103/98 (100) 98 09/02/19 00:00 99.1 18 99/60 (73) 99 Intake and Output 09/01/19 09/02/19 18:59 06:59 Intake Total 500 ml 913 ml Balance 500 ml 913 ml Intake Oral 0 ml IV Total 500 ml 913 ml # Voids 1 # Bowel Movements 1 Laboratory Tests 09/02/19 05:40: White Blood Count 6.8#, Red Blood Count 4.15L, Hemoglobin 11.0L, Hematocrit 33.7L, Mean Corpuscular Volume 81, Mean Corpuscular Hemoglobin 26.4L, Mean Corpuscular Hemoglobin Concent 32.5, Red Cell Distribution Width 10.7L, Platelet Count 270, Mean Platelet Volume 6.0L, Neutrophils (%) (Auto) 71.4, Lymphocytes (%) (Auto) 17.6L, Monocytes (%) (Auto) 9.0, Eosinophils (%) (Auto) 1.5, Basophils (%) (Auto) 0.4, Prothrombin Time 11.4, Prothromb Time International Ratio 1.1, Activated Partial Thromboplast Time 23, Sodium Level 145, Potassium Level 2.7*L, Chloride Level 111H, Carbon Dioxide Level 25, Anion Gap 9, Blood Urea Nitrogen 9, Creatinine 0.8, Estimat Glomerular Filtration Rate > 60, Glucose Level 90, Hemoglobin A1c 5.2, Uric Acid 2.9, Calcium Level 8.0L, Phosphorus Level 3.0, Magnesium Level 2.0, Total Bilirubin 0.3, Aspartate Amino Transf (AST/SGOT) 18, Alanine Aminotransferase (ALT/SGPT) 18, Alkaline Phosphatase 58, Pro-B-Type Natriuretic Peptide 665H, Total Protein 5.9#L, Albumin 2.5L, Globulin 3.4, Albumin/Globulin Ratio 0.7L, Triglycerides Level 38 , Cholesterol Level 123, LDL Cholesterol 46, HDL Cholesterol 62H, Cholesterol/ HDL Ratio 2.0L, Thyroid Stimulating Hormone (TSH) 0.586, Free Thyroxine 1.06, Free Triiodothyronine 1.4L Height (Feet): 5 Height (Inches): 4.00 Weight (Pounds): 110 Objective WDWN NCAT supple CTA RRR abd soft (+) contracted OBS Roxann Crowell MD Sep 02, 2019 22:22
[2019-09-03] VITALS: BP 106/61
[2019-09-03] MEDS: D5 1/2NS w/KCl 40meq 1000ml 1,000 ML IV SCH ×2 (01:00→12:10)
[2019-09-03 04:00] VITALS: BP 116/75
[2019-09-03 06:57] LABS: BASOPHILS % (AUTO) 1.1 % (0.0-2.0); EOSINOPHILS % (AUTO) 1.8 % (0.0-3.0); HEMATOCRIT 37.1 % (37.0-47.0); HEMOGLOBIN 12.3 G/DL (12.0-16.0); LYMPHOCYTES % (AUTO) 20.9 % (20.0-45.0); MEAN CORPUSCULAR VOLUME 81 FL (80-99); MONOCYTES % (AUTO) 10.1 % (1.0-10.0); NEUTROPHILS % (AUTO) 66.1 % (45.0-75.0); PLATELET COUNT 260 K/UL (150-450); RED BLOOD COUNT 4.56 M/UL (4.20-5.40); RED CELL DISTRIBUTION WIDTH 10.8 % (11.6-14.8)
[2019-09-03 07:20] LABS: ALANINE AMINOTRANSFERASE 22 U/L (12-78); ALBUMIN 2.8 G/DL (3.4-5.0); ALBUMIN/GLOBULIN RATIO 0.8 (1.0-2.7); ALKALINE PHOSPHATASE 64 U/L (46-116); ANION GAP 8 mmol/L (5-15); ASPARTATE AMINO TRANSFERASE 23 U/L (15-37); BILIRUBIN,TOTAL 0.4 MG/DL (0.2-1.0); BLOOD UREA NITROGEN 5 mg/dL (7-18); CALCIUM 8.6 MG/DL (8.5-10.1); CARBON DIOXIDE 26 MMOL/L (21-32); CHLORIDE 107 MMOL/L (98-107); CREATININE 0.7 MG/DL (0.55-1.30); PHOSPHORUS 2.8 MG/DL (2.5-4.9); POTASSIUM 3.8 MMOL/L (3.5-5.1); SODIUM 141 MMOL/L (136-145)
--- NOTE | 2019-09-03 07:33 | NUR ---
HAND-OFF: Report given to ROGELIO WHALEN.
[2019-09-03 08:00] VITALS: BP 120/75
--- NOTE | 2019-09-03 08:07 | NUR ---
NURSE NOTES: Received patient in bed, awake, nor oriented and not verbal. In room air, no sign of pain or respiratory distress. Patient has LAC and left wrist IV accesses, receives D5 1/2 + 40 mEq KCL @ 75cc/hr. Patient has rectal tube and Stephens catheter, draining to gravity. Bed locked at the lowest position possible, on bed alarm, call light within easy reach, siderails up x3. Will continue to monitor patient and follow up with the plan of care.
--- NOTE | 2019-09-03 11:33 | Infectious Diseases Prog Note ---
Assessment/Plan Assessment/Plan IMPRESSION: 1. leukocytosis resolved 2. Abdominal distention, nausea, vomiting.,gastroenteritis 3. Mild hematuria with mild pyuria, may have UTI 4. hypokalemia. 5. decreased albumin RECOMMENDATION: Continue ceftriaxone until tomorrow Subjective ROS Limited/Unobtainable: Yes Constitutional: Denies: fever Allergies: Coded Allergies: ERYTHROMYCIN BASE (Unverified Allergy, Unknown, 01/31/15) Objective Vital Signs Last 24 Hour Vital Signs Date Time Temp Pulse Resp B/P (MAP) Pulse Ox O2 Delivery O2 Flow Rate FiO2 09/03/19 09:00 Room Air 09/03/19 08:00 98.7 91 18 120/75 (90) 100 09/03/19 04:00 97.9 89 17 116/75 (89) 98 09/03/19 00:00 97.7 83 18 106/61 (76) 99 09/02/19 21:00 Room Air 09/02/19 20:00 98.0 79 17 110/64 (79) 99 09/02/19 16:00 98.6 76 18 134/78 (96) 96 09/02/19 12:00 98.6 80 20 111/71 (84) 98 Height (Feet): 5 Height (Inches): 4.00 Weight (Pounds): 110 General Appearance: no acute distress HEENT: mucous membranes moist Respiratory/Chest: lungs clear Cardiovascular: normal rate Abdomen: soft, non tender Extremities: no edema Neurologic/Psychiatric: alert, responsive Microbiology Date/Time Source Procedure Growth Status 09/02/19 01:40 Stool Clostridium difficile Toxin Assay - Final Complete Laboratory Tests Test 09/03/19 05:55 White Blood Count 6.0 K/UL (4.8-10.8) Red Blood Count 4.56 M/UL (4.20-5.40) Hemoglobin 12.3 G/DL (12.0-16.0) Hematocrit 37.1 % (37.0-47.0) Mean Corpuscular Volume 81 FL (80-99) Mean Corpuscular Hemoglobin 27.0 PG (27.0-31.0) Mean Corpuscular Hemoglobin Concent 33.3 G/DL (32.0-36.0) Red Cell Distribution Width 10.8 % (11.6-14.8) L Platelet Count 260 K/UL (150-450) Mean Platelet Volume 5.6 FL (6.5-10.1) L Neutrophils (%) (Auto) 66.1 % (45.0-75.0) Lymphocytes (%) (Auto) 20.9 % (20.0-45.0) Monocytes (%) (Auto) 10.1 % (1.0-10.0) H Eosinophils (%) (Auto) 1.8 % (0.0-3.0) Basophils (%) (Auto) 1.1 % (0.0-2.0) Sodium Level 141 MMOL/L (136-145) Potassium Level 3.8 MMOL/L (3.5-5.1) Chloride Level 107 MMOL/L (98-107) Carbon Dioxide Level 26 MMOL/L (21-32) Anion Gap 8 mmol/L (5-15) Blood Urea Nitrogen 5 mg/dL (7-18) L Creatinine 0.7 MG/DL (0.55-1.30) Estimat Glomerular Filtration Rate > 60 mL/min (>60) Glucose Level 85 MG/DL (74-106) Calcium Level 8.6 MG/DL (8.5-10.1) Phosphorus Level 2.8 MG/DL (2.5-4.9) Magnesium Level 1.9 MG/DL (1.8-2.4) Total Bilirubin 0.4 MG/DL (0.2-1.0) Aspartate Amino Transf (AST/SGOT) 23 U/L (15-37) Alanine Aminotransferase (ALT/SGPT) 22 U/L (12-78) Alkaline Phosphatase 64 U/L (46-116) C-Reactive Protein, Quantitative 0.5 mg/dL (0.00-0.90) Total Protein 6.5 G/DL (6.4-8.2) Albumin 2.8 G/DL (3.4-5.0) L Globulin 3.7 g/dL Albumin/Globulin Ratio 0.8 (1.0-2.7) L Current Medications Medications (Trade) Dose Ordered Sig/Melchor Route PRN Reason Start Time Stop Time Status Last Admin Dose Admin Acetaminophen (Tylenol) 650 mg Q4H PRN ORAL fever 09/01/19 15:45 10/01/19 15:44 Barium Sulfate (Readi-Cat 2) 450 ml NOW PRN ORAL Radiology Procedure 09/01/19 13:15 09/03/19 13:04 Ceftriaxone Sodium 1 gm/ Dextrose 55 ml @ 110 mls/hr Q24H IVPB 09/01/19 18:00 09/08/19 17:59 09/02/19 18:08 Dextrose (Dextrose 50%) 25 ml Q30M PRN IV Hypoglycemia 09/01/19 15:45 10/01/19 15:44 Dextrose (Dextrose 50%) 50 ml Q30M PRN IV Hypoglycemia 09/01/19 15:45 10/01/19 15:44 Dextrose/ Electrolytes 1,000 ml @ 75 mls/hr [id number] IV 09/02/19 11:00 10/02/19 10:59 09/03/19 01:00 Famotidine (Pepcid I.v.) 20 mg Q12HR IVP 09/01/19 21:00 10/01/19 20:59 09/03/19 08:27 Lorazepam (Ativan 2mg/ml 1ml) 0.5 mg Q4H PRN IV For Anxiety 09/01/19 15:45 09/08/19 15:44 Montelukast Sodium (Singulair) 10 mg Q24H ORAL 09/02/19 16:00 10/02/19 15:59 09/02/19 16:17 Ondansetron HCl (Zofran) 4 mg Q6H PRN IVP Nausea & Vomiting 09/01/19 15:45 10/01/19 15:44 Gerson Mancera MD Sep 03, 2019 11:33
--- NOTE | 2019-09-03 11:54 | Nephrology Progress Note ---
Assessment/Plan Problem List: (1) Hypernatremia (2) Hypomagnesemia (3) Hypokalemia (4) UTI (urinary tract infection) (5) Mentally disabled (6) Abdominal distension Assessment Hypokalemia Hypernatremia Hypomagnesemia Dehydration Sepsis Volvulus Pyelonephritis Development delay UTI (urinary tract infection) Mentally disabled Abdominal distension Plan IV KCL IV Fluid Per consultants check TSH on Rocephin Subjective ROS Limited/Unobtainable: No Objective Objective Last 24 Hour Vital Signs Date Time Temp Pulse Resp B/P (MAP) Pulse Ox O2 Delivery O2 Flow Rate FiO2 09/03/19 09:00 Room Air 09/03/19 08:00 98.7 91 18 120/75 (90) 100 09/03/19 04:00 97.9 89 17 116/75 (89) 98 09/03/19 00:00 97.7 83 18 106/61 (76) 99 09/02/19 21:00 Room Air 09/02/19 20:00 98.0 79 17 110/64 (79) 99 09/02/19 16:00 98.6 76 18 134/78 (96) 96 09/02/19 12:00 98.6 80 20 111/71 (84) 98 Intake and Output 09/02/19 09/03/19 19:00 07:00 Intake Total 525 ml 1010 ml Output Total 720 ml 2000 ml Balance -195 ml -990 ml IV Total 525 ml 1010 ml Output Urine Total 720 ml 2000 ml # Voids 2 Laboratory Tests 09/03/19 05:55: White Blood Count 6.0, Red Blood Count 4.56, Hemoglobin 12.3, Hematocrit 37.1, Mean Corpuscular Volume 81, Mean Corpuscular Hemoglobin 27.0, Mean Corpuscular Hemoglobin Concent 33.3, Red Cell Distribution Width 10.8L, Platelet Count 260, Mean Platelet Volume 5.6L, Neutrophils (%) (Auto) 66.1, Lymphocytes (%) (Auto) 20.9, Monocytes (%) (Auto) 10.1H, Eosinophils (%) (Auto) 1.8, Basophils (%) ( Auto) 1.1, Sodium Level 141, Potassium Level 3.8, Chloride Level 107, Carbon Dioxide Level 26, Anion Gap 8, Blood Urea Nitrogen 5L, Creatinine 0.7, Estimat Glomerular Filtration Rate > 60, Glucose Level 85, Calcium Level 8.6, Phosphorus Level 2.8, Magnesium Level 1.9, Total Bilirubin 0.4, Aspartate Amino Transf (AST/SGOT) 23, Alanine Aminotransferase (ALT/SGPT) 22, Alkaline Phosphatase 64, C-Reactive Protein, Quantitative 0.5, Total Protein 6.5, Albumin 2.8L, Globulin 3.7, Albumin/Globulin Ratio 0.8L Height (Feet): 5 Height (Inches): 4.00 Weight (Pounds): 110 General Appearance: no apparent distress Abdomen: soft Osman Caruso MD Sep 03, 2019 11:54
[2019-09-03 12:00] VITALS: BP 113/73
[2019-09-03] MEDS: Liothyronine 5mcg tab ORAL SCH (12:10)
--- NOTE | 2019-09-03 13:18 | Surgery Progress Note ---
Surgery Progress Note Subjective Additional Comments no acute events exam stable abd soft labs noted Objective Last 24 Hour Vital Signs Date Time Temp Pulse Resp B/P (MAP) Pulse Ox O2 Delivery O2 Flow Rate FiO2 09/03/19 12:00 99.1 87 19 113/73 (86) 99 09/03/19 09:00 Room Air 09/03/19 08:00 98.7 91 18 120/75 (90) 100 09/03/19 04:00 97.9 89 17 116/75 (89) 98 09/03/19 00:00 97.7 83 18 106/61 (76) 99 09/02/19 21:00 Room Air 09/02/19 20:00 98.0 79 17 110/64 (79) 99 09/02/19 16:00 98.6 76 18 134/78 (96) 96 I&O Intake and Output 09/02/19 09/03/19 19:00 07:00 Intake Total 525 ml 1010 ml Output Total 720 ml 2000 ml Balance -195 ml -990 ml IV Total 525 ml 1010 ml Output Urine Total 720 ml 2000 ml # Voids 2 Dressing: other Wound: other Drains: other Cardiovascular: RSR Respiratory: decreased breath sounds Abdomen: soft, non-tender, decreased bowel sounds Extremities: no cyanosis Laboratory Tests Test 09/03/19 05:55 White Blood Count 6.0 K/UL (4.8-10.8) Red Blood Count 4.56 M/UL (4.20-5.40) Hemoglobin 12.3 G/DL (12.0-16.0) Hematocrit 37.1 % (37.0-47.0) Mean Corpuscular Volume 81 FL (80-99) Mean Corpuscular Hemoglobin 27.0 PG (27.0-31.0) Mean Corpuscular Hemoglobin Concent 33.3 G/DL (32.0-36.0) Red Cell Distribution Width 10.8 % (11.6-14.8) L Platelet Count 260 K/UL (150-450) Mean Platelet Volume 5.6 FL (6.5-10.1) L Neutrophils (%) (Auto) 66.1 % (45.0-75.0) Lymphocytes (%) (Auto) 20.9 % (20.0-45.0) Monocytes (%) (Auto) 10.1 % (1.0-10.0) H Eosinophils (%) (Auto) 1.8 % (0.0-3.0) Basophils (%) (Auto) 1.1 % (0.0-2.0) Sodium Level 141 MMOL/L (136-145) Potassium Level 3.8 MMOL/L (3.5-5.1) Chloride Level 107 MMOL/L (98-107) Carbon Dioxide Level 26 MMOL/L (21-32) Anion Gap 8 mmol/L (5-15) Blood Urea Nitrogen 5 mg/dL (7-18) L Creatinine 0.7 MG/DL (0.55-1.30) Estimat Glomerular Filtration Rate > 60 mL/min (>60) Glucose Level 85 MG/DL (74-106) Calcium Level 8.6 MG/DL (8.5-10.1) Phosphorus Level 2.8 MG/DL (2.5-4.9) Magnesium Level 1.9 MG/DL (1.8-2.4) Total Bilirubin 0.4 MG/DL (0.2-1.0) Aspartate Amino Transf (AST/SGOT) 23 U/L (15-37) Alanine Aminotransferase (ALT/SGPT) 22 U/L (12-78) Alkaline Phosphatase 64 U/L (46-116) C-Reactive Protein, Quantitative 0.5 mg/dL (0.00-0.90) Total Protein 6.5 G/DL (6.4-8.2) Albumin 2.8 G/DL (3.4-5.0) L Globulin 3.7 g/dL Albumin/Globulin Ratio 0.8 (1.0-2.7) L Plan Problems: (1) Abdominal distension Assessment & Plan: This is a 49-year-old female with significant medical comorbidities prior history of volvulus and chronic comorbidities who is nonverbal at baseline and care dependent presenting with abdominal distention nausea and emesis. On examination abdomen distended soft cannot significantly define tenderness but does grimace no peritoneal signs. Leukocytosis, abnormal labs. KUB noted Dilated colon demonstrated. Moderate stool in the right hemicolon noted. Similar Distended colon, nonspecific.. Pending CT abdomen pelvis. Does not seem to be volvulus at this time given KUB findings and wet read of the CT scan. Seemingly more distended colon throughout. Will await final CT read. No acute surgical intervention planned at this time. Recommend rectal tube GI evaluation noted we will continue to follow with serial exams C. diff Antibiotics as per infectious disease Abdominal exam somewhat improved today. Softer. Less distended. start diet trail We will continue with work-up and follow with recommendations thank you for this consultation Tylor Wilkins Sep 03, 2019 13:18
--- NOTE | 2019-09-03 13:24 | General Progress Note ---
Assessment/Plan Status: progressing Assessment/Plan: Assessment - N/V - resolved - diarrhea - C diff (-) - Leukocytosis - resolved - OBS Recommendations - Begin clears - replace lytes PRN Subjective Allergies: Coded Allergies: ERYTHROMYCIN BASE (Unverified Allergy, Unknown, 01/31/15) Subjective awake non verbal Objective Last 24 Hour Vital Signs Date Time Temp Pulse Resp B/P (MAP) Pulse Ox O2 Delivery O2 Flow Rate FiO2 09/03/19 12:00 99.1 87 19 113/73 (86) 99 09/03/19 09:00 Room Air 09/03/19 08:00 98.7 91 18 120/75 (90) 100 09/03/19 04:00 97.9 89 17 116/75 (89) 98 09/03/19 00:00 97.7 83 18 106/61 (76) 99 09/02/19 21:00 Room Air 09/02/19 20:00 98.0 79 17 110/64 (79) 99 09/02/19 16:00 98.6 76 18 134/78 (96) 96 Intake and Output 09/02/19 09/03/19 19:00 07:00 Intake Total 525 ml 1010 ml Output Total 720 ml 2000 ml Balance -195 ml -990 ml IV Total 525 ml 1010 ml Output Urine Total 720 ml 2000 ml # Voids 2 Laboratory Tests 09/03/19 05:55: White Blood Count 6.0, Red Blood Count 4.56, Hemoglobin 12.3, Hematocrit 37.1, Mean Corpuscular Volume 81, Mean Corpuscular Hemoglobin 27.0, Mean Corpuscular Hemoglobin Concent 33.3, Red Cell Distribution Width 10.8L, Platelet Count 260, Mean Platelet Volume 5.6L, Neutrophils (%) (Auto) 66.1, Lymphocytes (%) (Auto) 20.9, Monocytes (%) (Auto) 10.1H, Eosinophils (%) (Auto) 1.8, Basophils (%) ( Auto) 1.1, Sodium Level 141, Potassium Level 3.8, Chloride Level 107, Carbon Dioxide Level 26, Anion Gap 8, Blood Urea Nitrogen 5L, Creatinine 0.7, Estimat Glomerular Filtration Rate > 60, Glucose Level 85, Calcium Level 8.6, Phosphorus Level 2.8, Magnesium Level 1.9, Total Bilirubin 0.4, Aspartate Amino Transf (AST/SGOT) 23, Alanine Aminotransferase (ALT/SGPT) 22, Alkaline Phosphatase 64, C-Reactive Protein, Quantitative 0.5, Total Protein 6.5, Albumin 2.8L, Globulin 3.7, Albumin/Globulin Ratio 0.8L Height (Feet): 5 Height (Inches): 4.00 Weight (Pounds): 110 Objective WDWN NCAT supple CTA RRR abd soft (+) contracted OBS Roxann Crowell MD Sep 03, 2019 13:24
[2019-09-03] MEDS: Montelukast 10mg tablet ORAL SCH (15:21)
[2019-09-03 16:00] VITALS: BP 117/94
[2019-09-03] MEDS: cefTRIAXone 1 GM in D5W 55 ML IVPB SCH (17:01)
--- NOTE | 2019-09-03 19:35 | NUR ---
NURSE NOTES: patient was found to have removed her rectal tube and soiled self from head to toe. Outgoing nurse and incoming nurse cleaned patient as she was primary for both nurses.
--- NOTE | 2019-09-03 19:36 | NUR ---
NURSE NOTES: Received patient in no apparent distress. A&OX1, non verbal. IV sites are patent and intact. Patient has BM, rectal tube was out. Cleaned patient. Stephens cath noted, draining well by gravity, yellow urine noted. Bed in lowest position. Call light within reach. Will continue to monitor.
[2019-09-03 20:00] VITALS: BP 121/68
--- NOTE | 2019-09-03 22:15 | General Progress Note ---
Assessment/Plan Problem List: (1) Mentally disabled ICD Codes: F79 - Mentally disabled SNOMED: 86087851 (2) Abdominal distension ICD Codes: R14.0 - Abdominal distension SNOMED: 01454846 (3) UTI (urinary tract infection) ICD Codes: N39.0 - Urinary tract infection, site not specified SNOMED: 53432787 (4) Sepsis ICD Codes: A41.9 - Sepsis SNOMED: 01956555 (5) Hypokalemia ICD Codes: E87.6 - Hypokalemia SNOMED: 14904151 (6) Hypomagnesemia ICD Codes: E83.42 - Hypomagnesemia SNOMED: 342963100 Status: progressing Assessment/Plan: favor conservative management sbo improving mental delay uti abx per id afebrile Subjective ROS Limited/Unobtainable: Yes Allergies: Coded Allergies: ERYTHROMYCIN BASE (Unverified Allergy, Unknown, 01/31/15) Objective Last 24 Hour Vital Signs Date Time Temp Pulse Resp B/P (MAP) Pulse Ox O2 Delivery O2 Flow Rate FiO2 09/03/19 20:00 97.8 75 18 121/68 (85) 100 09/03/19 16:00 97.1 91 18 117/94 (102) 100 09/03/19 12:00 99.1 87 19 113/73 (86) 99 09/03/19 09:00 Room Air 09/03/19 08:00 98.7 91 18 120/75 (90) 100 09/03/19 04:00 97.9 89 17 116/75 (89) 98 09/03/19 00:00 97.7 83 18 106/61 (76) 99 Intake and Output 09/02/19 09/03/19 18:59 06:59 Intake Total 600 ml 935 ml Output Total 730 ml 2000 ml Balance -130 ml -1065 ml IV Total 600 ml 935 ml Output Urine Total 720 ml 2000 ml Stool Total 10 ml # Voids 2 Laboratory Tests 09/03/19 05:55: White Blood Count 6.0, Red Blood Count 4.56, Hemoglobin 12.3, Hematocrit 37.1, Mean Corpuscular Volume 81, Mean Corpuscular Hemoglobin 27.0, Mean Corpuscular Hemoglobin Concent 33.3, Red Cell Distribution Width 10.8L, Platelet Count 260, Mean Platelet Volume 5.6L, Neutrophils (%) (Auto) 66.1, Lymphocytes (%) (Auto) 20.9, Monocytes (%) (Auto) 10.1H, Eosinophils (%) (Auto) 1.8, Basophils (%) ( Auto) 1.1, Sodium Level 141, Potassium Level 3.8, Chloride Level 107, Carbon Dioxide Level 26, Anion Gap 8, Blood Urea Nitrogen 5L, Creatinine 0.7, Estimat Glomerular Filtration Rate > 60, Glucose Level 85, Calcium Level 8.6, Phosphorus Level 2.8, Magnesium Level 1.9, Total Bilirubin 0.4, Aspartate Amino Transf (AST/SGOT) 23, Alanine Aminotransferase (ALT/SGPT) 22, Alkaline Phosphatase 64, C-Reactive Protein, Quantitative 0.5, Total Protein 6.5, Albumin 2.8L, Globulin 3.7, Albumin/Globulin Ratio 0.8L Height (Feet): 5 Height (Inches): 4.00 Weight (Pounds): 110 Cardiovascular: normal rate Respiratory/Chest: lungs clear Abdomen: soft Kyleigh Calixto MD Sep 03, 2019 22:15
[2019-09-04] VITALS: BP 106/78
[2019-09-04 04:00] VITALS: BP 114/74
[2019-09-04 06:29] LABS: BASOPHILS % (AUTO) 1.1 % (0.0-2.0); EOSINOPHILS % (AUTO) 2.1 % (0.0-3.0); HEMATOCRIT 41.7 % (37.0-47.0); HEMOGLOBIN 13.9 G/DL (12.0-16.0); LYMPHOCYTES % (AUTO) 23.6 % (20.0-45.0); MEAN CORPUSCULAR VOLUME 81 FL (80-99); MONOCYTES % (AUTO) 7.4 % (1.0-10.0); NEUTROPHILS % (AUTO) 65.8 % (45.0-75.0); PLATELET COUNT 321 K/UL (150-450); RED BLOOD COUNT 5.13 M/UL (4.20-5.40); RED CELL DISTRIBUTION WIDTH 10.7 % (11.6-14.8); WHITE BLOOD COUNT 6.7 K/UL (4.8-10.8)
[2019-09-04 07:01] LABS: ALANINE AMINOTRANSFERASE 24 U/L (12-78); ALBUMIN 3.1 G/DL (3.4-5.0); ALBUMIN/GLOBULIN RATIO 0.8 (1.0-2.7); ALKALINE PHOSPHATASE 74 U/L (46-116); ANION GAP 9 mmol/L (5-15); ASPARTATE AMINO TRANSFERASE 21 U/L (15-37); BILIRUBIN,TOTAL 0.4 MG/DL (0.2-1.0); BLOOD UREA NITROGEN 5 mg/dL (7-18); CALCIUM 9.2 MG/DL (8.5-10.1); CARBON DIOXIDE 27 MMOL/L (21-32); CHLORIDE 107 MMOL/L (98-107); CREATININE 0.8 MG/DL (0.55-1.30); PHOSPHORUS 4.2 MG/DL (2.5-4.9); POTASSIUM 4.6 MMOL/L (3.5-5.1); SODIUM 143 MMOL/L (136-145)
--- NOTE | 2019-09-04 07:04 | NUR ---
NURSE NOTES: Patient had large amount of BM at 1930 on 09/03/19, stool was soft. Rectal tube was out due to soft stool. Notified Dr. Crowell. Obtained discontinue rectal tube.
--- NOTE | 2019-09-04 07:30 | NUR ---
NURSE NOTES: Received pt from TOM WILKINS RN. A&O X1. Pt is in RA, no SOB or acute respiratory distress noted. pt has intact iv access LAC 22g is running well. pt has Stephens cath in place is working well. No complain of pain at this moment. all needs attended, bed is locked and is in the lowest position, call light within easy reach. will continue to monitor.
--- NOTE | 2019-09-04 07:36 | NUR ---
HAND-OFF: Report given to Jose David EMRCADO.
[2019-09-04 08:00] VITALS: BP 105/73
--- NOTE | 2019-09-04 08:43 | Infectious Diseases Prog Note ---
Assessment/Plan Assessment/Plan IMPRESSION: 1. leukocytosis resolved 2. Abdominal distention, nausea, vomiting.,gastroenteritis 3. Mild hematuria with mild pyuria, may have UTI 4. hypokalemia. 5. decreased albumin RECOMMENDATION: Discontinue ceftriaxone Subjective ROS Limited/Unobtainable: Yes Constitutional: Denies: fever Gastrointestinal/Abdominal: Denies: diarrhea Allergies: Coded Allergies: ERYTHROMYCIN BASE (Unverified Allergy, Unknown, 01/31/15) Objective Vital Signs Last 24 Hour Vital Signs Date Time Temp Pulse Resp B/P (MAP) Pulse Ox O2 Delivery O2 Flow Rate FiO2 09/04/19 04:00 97.8 76 18 114/74 (87) 99 09/04/19 00:00 97.9 75 18 106/78 (87) 100 09/03/19 21:00 Room Air 09/03/19 20:00 97.8 75 18 121/68 (85) 100 09/03/19 16:00 97.1 91 18 117/94 (102) 100 09/03/19 12:00 99.1 87 19 113/73 (86) 99 09/03/19 09:00 Room Air Height (Feet): 5 Height (Inches): 4.00 Weight (Pounds): 110 General Appearance: no acute distress HEENT: mucous membranes moist Respiratory/Chest: lungs clear Cardiovascular: normal rate Abdomen: soft, non tender Extremities: no edema Neurologic/Psychiatric: alert, aphasia Microbiology Date/Time Source Procedure Growth Status 09/02/19 01:40 Stool Clostridium difficile Toxin Assay - Final Complete Laboratory Tests Test 09/04/19 06:00 White Blood Count 6.7 K/UL (4.8-10.8) Red Blood Count 5.13 M/UL (4.20-5.40) Hemoglobin 13.9 G/DL (12.0-16.0) Hematocrit 41.7 % (37.0-47.0) Mean Corpuscular Volume 81 FL (80-99) Mean Corpuscular Hemoglobin 27.1 PG (27.0-31.0) Mean Corpuscular Hemoglobin Concent 33.2 G/DL (32.0-36.0) Red Cell Distribution Width 10.7 % (11.6-14.8) L Platelet Count 321 K/UL (150-450) Mean Platelet Volume 5.6 FL (6.5-10.1) L Neutrophils (%) (Auto) 65.8 % (45.0-75.0) Lymphocytes (%) (Auto) 23.6 % (20.0-45.0) Monocytes (%) (Auto) 7.4 % (1.0-10.0) Eosinophils (%) (Auto) 2.1 % (0.0-3.0) Basophils (%) (Auto) 1.1 % (0.0-2.0) Sodium Level 143 MMOL/L (136-145) Potassium Level 4.6 MMOL/L (3.5-5.1) Chloride Level 107 MMOL/L (98-107) Carbon Dioxide Level 27 MMOL/L (21-32) Anion Gap 9 mmol/L (5-15) Blood Urea Nitrogen 5 mg/dL (7-18) L Creatinine 0.8 MG/DL (0.55-1.30) Estimat Glomerular Filtration Rate > 60 mL/min (>60) Glucose Level 84 MG/DL (74-106) Calcium Level 9.2 MG/DL (8.5-10.1) Phosphorus Level 4.2 MG/DL (2.5-4.9) Magnesium Level 2.0 MG/DL (1.8-2.4) Total Bilirubin 0.4 MG/DL (0.2-1.0) Aspartate Amino Transf (AST/SGOT) 21 U/L (15-37) Alanine Aminotransferase (ALT/SGPT) 24 U/L (12-78) Alkaline Phosphatase 74 U/L (46-116) Total Protein 7.2 G/DL (6.4-8.2) Albumin 3.1 G/DL (3.4-5.0) L Globulin 4.1 g/dL Albumin/Globulin Ratio 0.8 (1.0-2.7) L Current Medications Medications (Trade) Dose Ordered Sig/Melchor Route PRN Reason Start Time Stop Time Status Last Admin Dose Admin Acetaminophen (Tylenol) 650 mg Q4H PRN ORAL fever 09/01/19 15:45 10/01/19 15:44 Ceftriaxone Sodium 1 gm/ Dextrose 55 ml @ 110 mls/hr Q24H IVPB 09/01/19 18:00 09/08/19 17:59 09/03/19 17:01 Dextrose (Dextrose 50%) 25 ml Q30M PRN IV Hypoglycemia 09/01/19 15:45 10/01/19 15:44 Dextrose (Dextrose 50%) 50 ml Q30M PRN IV Hypoglycemia 09/01/19 15:45 10/01/19 15:44 Dextrose/ Electrolytes 1,000 ml @ 50 mls/hr Q20H IV 09/04/19 11:00 10/02/19 10:59 09/03/19 12:10 Famotidine (Pepcid I.v.) 20 mg Q12HR IVP 09/01/19 21:00 10/01/19 20:59 09/03/19 20:40 Liothyronine Sodium (Cytomel) 5 mcg DAILY ORAL 09/03/19 12:00 10/03/19 11:59 09/03/19 12:10 Lorazepam (Ativan 2mg/ml 1ml) 0.5 mg Q4H PRN IV For Anxiety 09/01/19 15:45 09/08/19 15:44 Montelukast Sodium (Singulair) 10 mg Q24H ORAL 09/02/19 16:00 10/02/19 15:59 09/03/19 15:21 Ondansetron HCl (Zofran) 4 mg Q6H PRN IVP Nausea & Vomiting 09/01/19 15:45 10/01/19 15:44 Gerson Mancera MD Sep 04, 2019 08:43
--- NOTE | 2019-09-04 08:49 | NUR ---
*-* INSURANCE *-* ALL CLINICALS AND REVIEWS HAVE BEEN FAXED TO: [facility] Ref#[id number] CM: Kemi Dougherty#[phone] ext [phone] fax#[phone]
[2019-09-04] MEDS: Liothyronine 5mcg tab ORAL SCH (09:06)
--- NOTE | 2019-09-04 11:43 | Nephrology Progress Note ---
Assessment/Plan Problem List: (1) Hypernatremia (2) Hypomagnesemia (3) Hypokalemia (4) UTI (urinary tract infection) (5) Mentally disabled (6) Abdominal distension Assessment Hypokalemia Hypernatremia Hypomagnesemia Dehydration Sepsis Volvulus Pyelonephritis Development delay UTI (urinary tract infection) Mentally disabled Abdominal distension Plan IV KCL IV Fluid Per consultants check TSH on Rocephin Subjective ROS Limited/Unobtainable: No Objective Objective Last 24 Hour Vital Signs Date Time Temp Pulse Resp B/P (MAP) Pulse Ox O2 Delivery O2 Flow Rate FiO2 09/04/19 09:00 Room Air 09/04/19 08:00 97.9 92 19 105/73 (84) 100 09/04/19 04:00 97.8 76 18 114/74 (87) 99 09/04/19 00:00 97.9 75 18 106/78 (87) 100 09/03/19 21:00 Room Air 09/03/19 20:00 97.8 75 18 121/68 (85) 100 09/03/19 16:00 97.1 91 18 117/94 (102) 100 09/03/19 12:00 99.1 87 19 113/73 (86) 99 Intake and Output 09/03/19 09/04/19 19:00 07:00 Intake Total 1055 ml 550 ml Output Total 2150 ml 600 ml Balance -1095 ml -50 ml Intake Oral 480 ml IV Total 575 ml 550 ml Output Urine Total 2000 ml 600 ml Stool Total 150 ml Laboratory Tests 09/04/19 06:00: White Blood Count 6.7, Red Blood Count 5.13, Hemoglobin 13.9, Hematocrit 41.7, Mean Corpuscular Volume 81, Mean Corpuscular Hemoglobin 27.1, Mean Corpuscular Hemoglobin Concent 33.2, Red Cell Distribution Width 10.7L, Platelet Count 321, Mean Platelet Volume 5.6L, Neutrophils (%) (Auto) 65.8, Lymphocytes (%) (Auto) 23.6, Monocytes (%) (Auto) 7.4, Eosinophils (%) (Auto) 2.1, Basophils (%) (Auto ) 1.1, Sodium Level 143, Potassium Level 4.6, Chloride Level 107, Carbon Dioxide Level 27, Anion Gap 9, Blood Urea Nitrogen 5L, Creatinine 0.8, Estimat Glomerular Filtration Rate > 60, Glucose Level 84, Calcium Level 9.2, Phosphorus Level 4.2, Magnesium Level 2.0, Total Bilirubin 0.4, Aspartate Amino Transf (AST/SGOT) 21, Alanine Aminotransferase (ALT/SGPT) 24, Alkaline Phosphatase 74, Total Protein 7.2, Albumin 3.1L, Globulin 4.1, Albumin/Globulin Ratio 0.8L Height (Feet): 5 Height (Inches): 4.00 Weight (Pounds): 110 General Appearance: no apparent distress Objective no change Osman Caruso MD Sep 04, 2019 11:42
[2019-09-04 12:00] VITALS: BP 106/70
--- NOTE | 2019-09-04 14:41 | NUR ---
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 97.2 HR 86 RR 18 B/P 106/70 IS: IVF D5 KCL @ 50ML/HR ROCEPHIN IV SINGULAIR CLEAR LIQUID DIET MED/SURG STATUS
[2019-09-04 16:00] VITALS: BP 115/74
[2019-09-04] MEDS: Montelukast 10mg tablet ORAL SCH (16:11)
[2019-09-04] MEDS: D5 1/2NS w/KCl 40meq 1000ml 1,000 ML IV SCH (17:08)
--- NOTE | 2019-09-04 17:08 | Surgery Progress Note ---
Surgery Progress Note Subjective Additional Comments No acute events. Can make good urine. Labs improving. Rectal tube out. Abdominal exam stable. Tolerating. No nausea vomiting fever chills. Objective Last 24 Hour Vital Signs Date Time Temp Pulse Resp B/P (MAP) Pulse Ox O2 Delivery O2 Flow Rate FiO2 09/04/19 16:00 97.5 87 19 115/74 (88) 97 09/04/19 12:00 97.2 86 18 106/70 (82) 100 09/04/19 09:00 Room Air 09/04/19 08:00 97.9 92 19 105/73 (84) 100 09/04/19 04:00 97.8 76 18 114/74 (87) 99 09/04/19 00:00 97.9 75 18 106/78 (87) 100 09/03/19 21:00 Room Air 09/03/19 20:00 97.8 75 18 121/68 (85) 100 I&O Intake and Output 09/03/19 09/04/19 19:00 07:00 Intake Total 1055 ml 600 ml Output Total 2150 ml 600 ml Balance -1095 ml 0 ml Intake Oral 480 ml IV Total 575 ml 600 ml Output Urine Total 2000 ml 600 ml Stool Total 150 ml Dressing: other Wound: other Drains: other Cardiovascular: RSR Respiratory: clear Abdomen: soft, distended, non-tender, present bowel sounds Extremities: no edema, no tenderness, no cyanosis Laboratory Tests Test 09/04/19 06:00 White Blood Count 6.7 K/UL (4.8-10.8) Red Blood Count 5.13 M/UL (4.20-5.40) Hemoglobin 13.9 G/DL (12.0-16.0) Hematocrit 41.7 % (37.0-47.0) Mean Corpuscular Volume 81 FL (80-99) Mean Corpuscular Hemoglobin 27.1 PG (27.0-31.0) Mean Corpuscular Hemoglobin Concent 33.2 G/DL (32.0-36.0) Red Cell Distribution Width 10.7 % (11.6-14.8) L Platelet Count 321 K/UL (150-450) Mean Platelet Volume 5.6 FL (6.5-10.1) L Neutrophils (%) (Auto) 65.8 % (45.0-75.0) Lymphocytes (%) (Auto) 23.6 % (20.0-45.0) Monocytes (%) (Auto) 7.4 % (1.0-10.0) Eosinophils (%) (Auto) 2.1 % (0.0-3.0) Basophils (%) (Auto) 1.1 % (0.0-2.0) Sodium Level 143 MMOL/L (136-145) Potassium Level 4.6 MMOL/L (3.5-5.1) Chloride Level 107 MMOL/L (98-107) Carbon Dioxide Level 27 MMOL/L (21-32) Anion Gap 9 mmol/L (5-15) Blood Urea Nitrogen 5 mg/dL (7-18) L Creatinine 0.8 MG/DL (0.55-1.30) Estimat Glomerular Filtration Rate > 60 mL/min (>60) Glucose Level 84 MG/DL (74-106) Calcium Level 9.2 MG/DL (8.5-10.1) Phosphorus Level 4.2 MG/DL (2.5-4.9) Magnesium Level 2.0 MG/DL (1.8-2.4) Total Bilirubin 0.4 MG/DL (0.2-1.0) Aspartate Amino Transf (AST/SGOT) 21 U/L (15-37) Alanine Aminotransferase (ALT/SGPT) 24 U/L (12-78) Alkaline Phosphatase 74 U/L (46-116) Total Protein 7.2 G/DL (6.4-8.2) Albumin 3.1 G/DL (3.4-5.0) L Globulin 4.1 g/dL Albumin/Globulin Ratio 0.8 (1.0-2.7) L Plan Problems: (1) Abdominal distension Assessment & Plan: This is a 49-year-old female with significant medical comorbidities prior history of volvulus and chronic comorbidities who is nonverbal at baseline and care dependent presenting with abdominal distention nausea and emesis. On examination abdomen distended soft cannot significantly define tenderness but does grimace no peritoneal signs. Leukocytosis, abnormal labs. KUB noted Dilated colon demonstrated. Moderate stool in the right hemicolon noted. Similar Distended colon, nonspecific.. No evidence of small or large bowel obstruction or sigmoid volvulus although the colon is moderately distended but in a diffuse fashion. Moderate retention of feces within the right hemicolon. Abnormal appearance of the distal esophagus showing moderate wall thickening. Consider evaluation within the osteopenic. Atherosclerotic vascular disease. Technically limited evaluation due to artifacts Does not seem to be volvulus at this time given KUB findings and wet read of the CT scan. Seemingly more distended colon throughout. No acute surgical intervention planned at this time. Recommend rectal tube GI evaluation noted we will continue to follow with serial exams C. diff Antibiotics as per infectious disease Abdominal exam somewhat improved today. Softer. Less distended. Diet as tolerated We will continue with work-up and follow with recommendations thank you for this consultation Tylor Wilkins Sep 04, 2019 17:08
--- NOTE | 2019-09-04 17:08 | NUR ---
NURSE NOTES: previous bag wasn't finished and iv fluid was running from 1100 till now. w
--- NOTE | 2019-09-04 19:16 | NUR ---
HAND-OFF: Report given to DALTON MERCADO. pt is awake and stable.
--- NOTE | 2019-09-04 19:39 | General Progress Note ---
Assessment/Plan Status: progressing Assessment/Plan: Assessment - N/V - resolved - diarrhea - C diff (-) - Leukocytosis - resolved - OBS Recommendations - Diet per surgery - replace lytes PRN Subjective Allergies: Coded Allergies: ERYTHROMYCIN BASE (Unverified Allergy, Unknown, 01/31/15) Subjective awake non verbal stools solidifying - Rectal tube d/c'd Objective Last 24 Hour Vital Signs Date Time Temp Pulse Resp B/P (MAP) Pulse Ox O2 Delivery O2 Flow Rate FiO2 09/04/19 16:00 97.5 87 19 115/74 (88) 97 09/04/19 12:00 97.2 86 18 106/70 (82) 100 09/04/19 09:00 Room Air 09/04/19 08:00 97.9 92 19 105/73 (84) 100 09/04/19 04:00 97.8 76 18 114/74 (87) 99 09/04/19 00:00 97.9 75 18 106/78 (87) 100 09/03/19 21:00 Room Air 09/03/19 20:00 97.8 75 18 121/68 (85) 100 Intake and Output 09/03/19 09/04/19 19:00 07:00 Intake Total 1055 ml 600 ml Output Total 2150 ml 600 ml Balance -1095 ml 0 ml Intake Oral 480 ml IV Total 575 ml 600 ml Output Urine Total 2000 ml 600 ml Stool Total 150 ml Laboratory Tests 09/04/19 06:00: White Blood Count 6.7, Red Blood Count 5.13, Hemoglobin 13.9, Hematocrit 41.7, Mean Corpuscular Volume 81, Mean Corpuscular Hemoglobin 27.1, Mean Corpuscular Hemoglobin Concent 33.2, Red Cell Distribution Width 10.7L, Platelet Count 321, Mean Platelet Volume 5.6L, Neutrophils (%) (Auto) 65.8, Lymphocytes (%) (Auto) 23.6, Monocytes (%) (Auto) 7.4, Eosinophils (%) (Auto) 2.1, Basophils (%) (Auto ) 1.1, Sodium Level 143, Potassium Level 4.6, Chloride Level 107, Carbon Dioxide Level 27, Anion Gap 9, Blood Urea Nitrogen 5L, Creatinine 0.8, Estimat Glomerular Filtration Rate > 60, Glucose Level 84, Calcium Level 9.2, Phosphorus Level 4.2, Magnesium Level 2.0, Total Bilirubin 0.4, Aspartate Amino Transf (AST/SGOT) 21, Alanine Aminotransferase (ALT/SGPT) 24, Alkaline Phosphatase 74, Total Protein 7.2, Albumin 3.1L, Globulin 4.1, Albumin/Globulin Ratio 0.8L Height (Feet): 5 Height (Inches): 4.00 Weight (Pounds): 110 Objective WDWN NCAT supple CTA RRR abd soft (+) contracted OBS Roxann Crowell MD Sep 04, 2019 19:39
--- NOTE | 2019-09-04 19:40 | NUR ---
NURSE NOTES: Received report from ROGELIO Main. Patient is in bed, awake and alert x1. On room air with no signs of distress or SOB. IV intact and running fluids. Stephens intact and draining well. Bed locked and in lowest position. Call light in reach. Will continue to monitor the patient.
[2019-09-04 20:00] VITALS: BP 92/60
--- NOTE | 2019-09-04 21:09 | General Progress Note ---
Assessment/Plan Problem List: (1) Mentally disabled ICD Codes: F79 - Mentally disabled SNOMED: 41884033 (2) Abdominal distension ICD Codes: R14.0 - Abdominal distension SNOMED: 67411287 (3) UTI (urinary tract infection) ICD Codes: N39.0 - Urinary tract infection, site not specified SNOMED: 43645517 (4) Sepsis ICD Codes: A41.9 - Sepsis SNOMED: 97667350 (5) Hypokalemia ICD Codes: E87.6 - Hypokalemia SNOMED: 46322918 (6) Hypomagnesemia ICD Codes: E83.42 - Hypomagnesemia SNOMED: 789410173 Status: progressing Assessment/Plan: favor conservative management sbo improving mental delay improved abdominal distention afebrile Subjective ROS Limited/Unobtainable: Yes Allergies: Coded Allergies: ERYTHROMYCIN BASE (Unverified Allergy, Unknown, 01/31/15) Objective Last 24 Hour Vital Signs Date Time Temp Pulse Resp B/P (MAP) Pulse Ox O2 Delivery O2 Flow Rate FiO2 09/04/19 20:05 Room Air 09/04/19 20:00 98.9 80 19 92/60 (71) 97 09/04/19 16:00 97.5 87 19 115/74 (88) 97 09/04/19 12:00 97.2 86 18 106/70 (82) 100 09/04/19 09:00 Room Air 09/04/19 08:00 97.9 92 19 105/73 (84) 100 09/04/19 04:00 97.8 76 18 114/74 (87) 99 09/04/19 00:00 97.9 75 18 106/78 (87) 100 Intake and Output 09/03/19 09/04/19 19:00 07:00 Intake Total 1055 ml 600 ml Output Total 2150 ml 600 ml Balance -1095 ml 0 ml Intake Oral 480 ml IV Total 575 ml 600 ml Output Urine Total 2000 ml 600 ml Stool Total 150 ml Laboratory Tests 09/04/19 06:00: White Blood Count 6.7, Red Blood Count 5.13, Hemoglobin 13.9, Hematocrit 41.7, Mean Corpuscular Volume 81, Mean Corpuscular Hemoglobin 27.1, Mean Corpuscular Hemoglobin Concent 33.2, Red Cell Distribution Width 10.7L, Platelet Count 321, Mean Platelet Volume 5.6L, Neutrophils (%) (Auto) 65.8, Lymphocytes (%) (Auto) 23.6, Monocytes (%) (Auto) 7.4, Eosinophils (%) (Auto) 2.1, Basophils (%) (Auto ) 1.1, Sodium Level 143, Potassium Level 4.6, Chloride Level 107, Carbon Dioxide Level 27, Anion Gap 9, Blood Urea Nitrogen 5L, Creatinine 0.8, Estimat Glomerular Filtration Rate > 60, Glucose Level 84, Calcium Level 9.2, Phosphorus Level 4.2, Magnesium Level 2.0, Total Bilirubin 0.4, Aspartate Amino Transf (AST/SGOT) 21, Alanine Aminotransferase (ALT/SGPT) 24, Alkaline Phosphatase 74, Total Protein 7.2, Albumin 3.1L, Globulin 4.1, Albumin/Globulin Ratio 0.8L Height (Feet): 5 Height (Inches): 4.00 Weight (Pounds): 110 Kyleigh Calixto MD Sep 04, 2019 21:09
[2019-09-05] VITALS: BP 102/60
[2019-09-05 04:00] VITALS: BP 141/84
[2019-09-05 07:01] LABS: BASOPHILS % (AUTO) 0.8 % (0.0-2.0); EOSINOPHILS % (AUTO) 1.7 % (0.0-3.0); HEMATOCRIT 43.8 % (37.0-47.0); HEMOGLOBIN 14.4 G/DL (12.0-16.0); LYMPHOCYTES % (AUTO) 18.2 % (20.0-45.0); MEAN CORPUSCULAR VOLUME 81 FL (80-99); MONOCYTES % (AUTO) 5.1 % (1.0-10.0); NEUTROPHILS % (AUTO) 74.3 % (45.0-75.0); PLATELET COUNT 344 K/UL (150-450); RED BLOOD COUNT 5.39 M/UL (4.20-5.40); RED CELL DISTRIBUTION WIDTH 10.6 % (11.6-14.8); WHITE BLOOD COUNT 6.5 K/UL (4.8-10.8)
[2019-09-05 07:24] LABS: ALANINE AMINOTRANSFERASE 25 U/L (12-78); ALBUMIN 3.3 G/DL (3.4-5.0); ALBUMIN/GLOBULIN RATIO 0.8 (1.0-2.7); ALKALINE PHOSPHATASE 75 U/L (46-116); ANION GAP 6 mmol/L (5-15); ASPARTATE AMINO TRANSFERASE 23 U/L (15-37); BILIRUBIN,TOTAL 0.5 MG/DL (0.2-1.0); BLOOD UREA NITROGEN 3 mg/dL (7-18); CALCIUM 8.7 MG/DL (8.5-10.1); CARBON DIOXIDE 29 MMOL/L (21-32); CHLORIDE 103 MMOL/L (98-107); SODIUM 138 MMOL/L (136-145)
--- NOTE | 2019-09-05 07:53 | NUR ---
HAND-OFF: Report given to Phuong Mae RN.
--- NOTE | 2019-09-05 07:54 | NUR ---
NURSE NOTES: Received report from ROGELIO San. Pt is alert and oriented x1, nonverbal, on RA, no complaints of pain or apparent distress noted. IV intact and running fluids, teague in place and draining. Bed locked in lowest position, side rails up, call light within reach. Will continue to monitor.
[2019-09-05 08:00] VITALS: BP 117/82
[2019-09-05] MEDS: Liothyronine 5mcg tab ORAL SCH (08:47)
--- NOTE | 2019-09-05 08:59 | Diagnostic Imaging Report ---
EXAM: XR Abdomen, 2 Views CLINICAL HISTORY: ABD DIST TECHNIQUE: Frontal view of the abdomen/pelvis . COMPARISON: Abdomen x-ray 09/01/19, CT abdomen and pelvis 09/01/19 FINDINGS: Gastrointestinal tract: Markedly dilated loop of presumably transverse colon versus stomach or possibly cecal volvulus in the upper to mid abdomen. Previously seen dilated remainder of the colon has improved in caliber. Bones/joints: Unremarkable. Tubes, lines and devices: Rectal tube. IMPRESSION: Markedly dilated loop of presumably transverse colon versus stomach or possibly cecal volvulus in the upper to mid abdomen. Previously seen dilated remainder of the colon has improved in caliber. <MYCVCSECTION> Communications: 09/05/19 09:02 Call Nurse ROGELIO Nava on 09/05 09:02 (-08:00)
--- NOTE | 2019-09-05 09:08 | NUR ---
CHARGE NURSE NOTE: Received call from (radiologist [employer]). possible Secum Volvulus,( did not receive report yet). notified, no new orders given.
[2019-09-05] MEDS ORDERED: D5NS 1000ml IV ONE (09:47)
[2019-09-05 12:00] VITALS: BP 116/69
[2019-09-05] MEDS: D5 1/2NS w/KCl 40meq 1000ml 1,000 ML IV SCH (14:10)
--- NOTE | 2019-09-05 14:42 | Surgery Progress Note ---
Surgery Progress Note Subjective Additional Comments more awake and alert today responsive no n/v/f/c tolerating diet had BM abd exam improved Objective Last 24 Hour Vital Signs Date Time Temp Pulse Resp B/P (MAP) Pulse Ox O2 Delivery O2 Flow Rate FiO2 09/05/19 12:00 98.0 88 20 116/69 (85) 99 09/05/19 09:00 Room Air 09/05/19 08:00 98.9 83 20 117/82 (94) 100 09/05/19 04:00 97.0 96 19 141/84 (103) 96 09/05/19 00:00 97.4 77 19 102/60 (74) 96 09/04/19 20:05 Room Air 09/04/19 20:00 98.9 80 19 92/60 (71) 97 09/04/19 16:00 97.5 87 19 115/74 (88) 97 I&O Intake and Output 09/04/19 09/05/19 19:00 07:00 Intake Total 1140 ml 1390 ml Output Total 1600 ml 1550 ml Balance -460 ml -160 ml Intake Oral 840 ml 840 ml IV Total 300 ml 550 ml Output Urine Total 1600 ml 1550 ml # Voids 2 # Bowel Movements 2 1 Dressing: other Wound: other Drains: other Cardiovascular: RSR Respiratory: decreased breath sounds Abdomen: soft, distended, non-tender, present bowel sounds Extremities: no cyanosis Laboratory Tests Test 09/05/19 05:30 White Blood Count 6.5 K/UL (4.8-10.8) Red Blood Count 5.39 M/UL (4.20-5.40) Hemoglobin 14.4 G/DL (12.0-16.0) Hematocrit 43.8 % (37.0-47.0) Mean Corpuscular Volume 81 FL (80-99) Mean Corpuscular Hemoglobin 26.8 PG (27.0-31.0) L Mean Corpuscular Hemoglobin Concent 33.0 G/DL (32.0-36.0) Red Cell Distribution Width 10.6 % (11.6-14.8) L Platelet Count 344 K/UL (150-450) Mean Platelet Volume 5.3 FL (6.5-10.1) L Neutrophils (%) (Auto) 74.3 % (45.0-75.0) Lymphocytes (%) (Auto) 18.2 % (20.0-45.0) L Monocytes (%) (Auto) 5.1 % (1.0-10.0) Eosinophils (%) (Auto) 1.7 % (0.0-3.0) Basophils (%) (Auto) 0.8 % (0.0-2.0) Sodium Level 138 MMOL/L (136-145) Potassium Level 4.0 MMOL/L (3.5-5.1) Chloride Level 103 MMOL/L (98-107) Carbon Dioxide Level 29 MMOL/L (21-32) Anion Gap 6 mmol/L (5-15) Blood Urea Nitrogen 3 mg/dL (7-18) L Creatinine 1.0 MG/DL (0.55-1.30) Estimat Glomerular Filtration Rate > 60 mL/min (>60) Glucose Level 130 MG/DL (74-106) H Calcium Level 8.7 MG/DL (8.5-10.1) Total Bilirubin 0.5 MG/DL (0.2-1.0) Aspartate Amino Transf (AST/SGOT) 23 U/L (15-37) Alanine Aminotransferase (ALT/SGPT) 25 U/L (12-78) Alkaline Phosphatase 75 U/L (46-116) Total Protein 7.6 G/DL (6.4-8.2) Albumin 3.3 G/DL (3.4-5.0) L Globulin 4.3 g/dL Albumin/Globulin Ratio 0.8 (1.0-2.7) L Plan Problems: (1) Abdominal distension Assessment & Plan: This is a 49-year-old female with significant medical comorbidities prior history of volvulus and chronic comorbidities who is nonverbal at baseline and care dependent presenting with abdominal distention nausea and emesis. On examination abdomen distended soft cannot significantly define tenderness but does grimace no peritoneal signs. Leukocytosis, abnormal labs. KUB noted Dilated colon demonstrated. Moderate stool in the right hemicolon noted. Similar Distended colon, nonspecific.. No evidence of small or large bowel obstruction or sigmoid volvulus although the colon is moderately distended but in a diffuse fashion. Moderate retention of feces within the right hemicolon. Abnormal appearance of the distal esophagus showing moderate wall thickening. Consider evaluation within the osteopenic. Atherosclerotic vascular disease. Technically limited evaluation due to artifacts Does not seem to be volvulus at this time given KUB findings and wet read of the CT scan. Seemingly more distended colon throughout. No acute surgical intervention planned at this time. Recommend rectal tube GI evaluation noted we will continue to follow with serial exams C. diff Antibiotics as per infectious disease Abdominal exam somewhat improved today. Softer. Less distended. Diet as tolerated KUB noted unlikely volvulus cont diet We will continue with work-up and follow with recommendations thank you for this consultation Tylor Wilkins Sep 05, 2019 14:42
[2019-09-05] MEDS: Montelukast 10mg tablet ORAL SCH (15:34)
[2019-09-05 16:00] VITALS: BP 105/71
--- NOTE | 2019-09-05 17:41 | General Progress Note ---
Assessment/Plan Status: progressing Assessment/Plan: Assessment - N/V - resolved - diarrhea - C diff (-) - Leukocytosis - resolved - OBS Recommendations - Diet per surgery - replace lytes PRN Subjective Allergies: Coded Allergies: ERYTHROMYCIN BASE (Unverified Allergy, Unknown, 01/31/15) Subjective awake non verbal Objective Last 24 Hour Vital Signs Date Time Temp Pulse Resp B/P (MAP) Pulse Ox O2 Delivery O2 Flow Rate FiO2 09/05/19 16:00 98.7 100 20 105/71 (82) 99 09/05/19 12:00 98.0 88 20 116/69 (85) 99 09/05/19 09:00 Room Air 09/05/19 08:00 98.9 83 20 117/82 (94) 100 09/05/19 04:00 97.0 96 19 141/84 (103) 96 09/05/19 00:00 97.4 77 19 102/60 (74) 96 09/04/19 20:05 Room Air 09/04/19 20:00 98.9 80 19 92/60 (71) 97 Intake and Output 09/04/19 09/05/19 19:00 07:00 Intake Total 1140 ml 1390 ml Output Total 1600 ml 1550 ml Balance -460 ml -160 ml Intake Oral 840 ml 840 ml IV Total 300 ml 550 ml Output Urine Total 1600 ml 1550 ml # Voids 2 # Bowel Movements 2 1 Laboratory Tests 09/05/19 05:30: White Blood Count 6.5, Red Blood Count 5.39, Hemoglobin 14.4, Hematocrit 43.8, Mean Corpuscular Volume 81, Mean Corpuscular Hemoglobin 26.8L, Mean Corpuscular Hemoglobin Concent 33.0, Red Cell Distribution Width 10.6L, Platelet Count 344, Mean Platelet Volume 5.3L, Neutrophils (%) (Auto) 74.3, Lymphocytes (%) (Auto) 18.2L, Monocytes (%) (Auto) 5.1, Eosinophils (%) (Auto) 1.7, Basophils (%) (Auto ) 0.8, Sodium Level 138, Potassium Level 4.0, Chloride Level 103, Carbon Dioxide Level 29, Anion Gap 6, Blood Urea Nitrogen 3L, Creatinine 1.0, Estimat Glomerular Filtration Rate > 60, Glucose Level 130H, Calcium Level 8.7, Total Bilirubin 0.5, Aspartate Amino Transf (AST/SGOT) 23, Alanine Aminotransferase ( ALT/SGPT) 25, Alkaline Phosphatase 75, Total Protein 7.6, Albumin 3.3L, Globulin 4.3, Albumin/Globulin Ratio 0.8L Height (Feet): 5 Height (Inches): 4.00 Weight (Pounds): 110 Objective WDWN NCAT supple CTA RRR abd soft (+) contracted OBS Roxann Crowell MD Sep 05, 2019 17:41
--- NOTE | 2019-09-05 18:18 | Nephrology Progress Note ---
Assessment/Plan Problem List: (1) Hypernatremia (2) Hypomagnesemia (3) Hypokalemia (4) UTI (urinary tract infection) (5) Mentally disabled (6) Abdominal distension Assessment Hypokalemia Hypernatremia Hypomagnesemia Dehydration Sepsis Volvulus Pyelonephritis Development delay UTI (urinary tract infection) Mentally disabled Abdominal distension Plan IV KCL IV Fluid Per consultants check TSH on Rocephin Subjective ROS Limited/Unobtainable: No Objective Objective Last 24 Hour Vital Signs Date Time Temp Pulse Resp B/P (MAP) Pulse Ox O2 Delivery O2 Flow Rate FiO2 09/05/19 16:00 98.7 100 20 105/71 (82) 99 09/05/19 12:00 98.0 88 20 116/69 (85) 99 09/05/19 09:00 Room Air 09/05/19 08:00 98.9 83 20 117/82 (94) 100 09/05/19 04:00 97.0 96 19 141/84 (103) 96 09/05/19 00:00 97.4 77 19 102/60 (74) 96 09/04/19 20:05 Room Air 09/04/19 20:00 98.9 80 19 92/60 (71) 97 Intake and Output 09/04/19 09/05/19 19:00 07:00 Intake Total 1140 ml 1390 ml Output Total 1600 ml 1550 ml Balance -460 ml -160 ml Intake Oral 840 ml 840 ml IV Total 300 ml 550 ml Output Urine Total 1600 ml 1550 ml # Voids 2 # Bowel Movements 2 1 Laboratory Tests 09/05/19 05:30: White Blood Count 6.5, Red Blood Count 5.39, Hemoglobin 14.4, Hematocrit 43.8, Mean Corpuscular Volume 81, Mean Corpuscular Hemoglobin 26.8L, Mean Corpuscular Hemoglobin Concent 33.0, Red Cell Distribution Width 10.6L, Platelet Count 344, Mean Platelet Volume 5.3L, Neutrophils (%) (Auto) 74.3, Lymphocytes (%) (Auto) 18.2L, Monocytes (%) (Auto) 5.1, Eosinophils (%) (Auto) 1.7, Basophils (%) (Auto ) 0.8, Sodium Level 138, Potassium Level 4.0, Chloride Level 103, Carbon Dioxide Level 29, Anion Gap 6, Blood Urea Nitrogen 3L, Creatinine 1.0, Estimat Glomerular Filtration Rate > 60, Glucose Level 130H, Calcium Level 8.7, Total Bilirubin 0.5, Aspartate Amino Transf (AST/SGOT) 23, Alanine Aminotransferase ( ALT/SGPT) 25, Alkaline Phosphatase 75, Total Protein 7.6, Albumin 3.3L, Globulin 4.3, Albumin/Globulin Ratio 0.8L Height (Feet): 5 Height (Inches): 4.00 Weight (Pounds): 110 General Appearance: no apparent distress Objective no change Osman Caruso MD Sep 05, 2019 18:18
--- NOTE | 2019-09-05 19:13 | NUR ---
HAND-OFF: Report given to ROGELIO Metcalf and ROGELIO Jimenez.
--- NOTE | 2019-09-05 19:37 | NUR ---
NURSE NOTES: Received patient in bed. Alert x1. Patient is non-verbal. No signs of pain noted at this time. Patient is on room air. FC in place and draining clear yellow urine. IV site in the left forearm in place and shows no signs of redness or swelling.
[2019-09-05 20:00] VITALS: BP 97/56
--- NOTE | 2019-09-05 22:21 | General Progress Note ---
Assessment/Plan Problem List: (1) Mentally disabled ICD Codes: F79 - Mentally disabled SNOMED: 50639055 (2) Abdominal distension ICD Codes: R14.0 - Abdominal distension SNOMED: 63863918 (3) UTI (urinary tract infection) ICD Codes: N39.0 - Urinary tract infection, site not specified SNOMED: 01298327 (4) Sepsis ICD Codes: A41.9 - Sepsis SNOMED: 94469773 (5) Hypokalemia ICD Codes: E87.6 - Hypokalemia SNOMED: 04143710 (6) Hypomagnesemia ICD Codes: E83.42 - Hypomagnesemia SNOMED: 358484103 Status: progressing Assessment/Plan: check labs nonverbal not getting worse sbo improving mental delay Subjective ROS Limited/Unobtainable: Yes Allergies: Coded Allergies: ERYTHROMYCIN BASE (Unverified Allergy, Unknown, 01/31/15) Objective Last 24 Hour Vital Signs Date Time Temp Pulse Resp B/P (MAP) Pulse Ox O2 Delivery O2 Flow Rate FiO2 09/05/19 21:00 Room Air 09/05/19 20:00 99.0 102 19 97/56 (70) 98 09/05/19 16:00 98.7 100 20 105/71 (82) 99 09/05/19 12:00 98.0 88 20 116/69 (85) 99 09/05/19 09:00 Room Air 09/05/19 08:00 98.9 83 20 117/82 (94) 100 09/05/19 04:00 97.0 96 19 141/84 (103) 96 09/05/19 00:00 97.4 77 19 102/60 (74) 96 Intake and Output 09/04/19 09/05/19 19:00 07:00 Intake Total 1140 ml 1390 ml Output Total 1600 ml 1550 ml Balance -460 ml -160 ml Intake Oral 840 ml 840 ml IV Total 300 ml 550 ml Output Urine Total 1600 ml 1550 ml # Voids 2 # Bowel Movements 2 1 Laboratory Tests 09/05/19 05:30: White Blood Count 6.5, Red Blood Count 5.39, Hemoglobin 14.4, Hematocrit 43.8, Mean Corpuscular Volume 81, Mean Corpuscular Hemoglobin 26.8L, Mean Corpuscular Hemoglobin Concent 33.0, Red Cell Distribution Width 10.6L, Platelet Count 344, Mean Platelet Volume 5.3L, Neutrophils (%) (Auto) 74.3, Lymphocytes (%) (Auto) 18.2L, Monocytes (%) (Auto) 5.1, Eosinophils (%) (Auto) 1.7, Basophils (%) (Auto ) 0.8, Sodium Level 138, Potassium Level 4.0, Chloride Level 103, Carbon Dioxide Level 29, Anion Gap 6, Blood Urea Nitrogen 3L, Creatinine 1.0, Estimat Glomerular Filtration Rate > 60, Glucose Level 130H, Calcium Level 8.7, Total Bilirubin 0.5, Aspartate Amino Transf (AST/SGOT) 23, Alanine Aminotransferase ( ALT/SGPT) 25, Alkaline Phosphatase 75, Total Protein 7.6, Albumin 3.3L, Globulin 4.3, Albumin/Globulin Ratio 0.8L Height (Feet): 5 Height (Inches): 4.00 Weight (Pounds): 110 Neck: supple Cardiovascular: normal rate Respiratory/Chest: lungs clear Kyleigh Calixto MD Sep 05, 2019 22:21
[2019-09-05] MEDS: LORazepam Inj 2mg/ml 1ml IV PRN (23:04)
--- NOTE | 2019-09-05 23:50 | NUR ---
NURSE NOTES: Ativan given for restless behavior. Offered toilet, commode, food, and a drink. Patient still tried getting out of bed and stood up from the bed.
[2019-09-06] VITALS: BP 93/55
[2019-09-06 04:00] VITALS: BP 120/61
[2019-09-06] MEDS: LORazepam Inj 2mg/ml 1ml IV PRN ×2 (04:09→11:18)
[2019-09-06] MEDS: Liothyronine 5mcg tab ORAL SCH (05:02)
--- NOTE | 2019-09-06 05:54 | NUR ---
NURSE NOTES: Dose of ativan given for restless behavior and getting out of bed. Offered to help the patient to the restroom, offered food, and drink. Patient keeps trying to get of bed with SCD attached and teague attached. Patient keeps looking out of the doorway. Asked several times if she needed anything but she is non-verbal.
--- NOTE | 2019-09-06 07:10 | NUR ---
HAND-OFF: Report given to Phuong Mae RN.
--- NOTE | 2019-09-06 07:15 | NUR ---
NURSE NOTES: Report received from ROGELIO Jimenez and ROGELIO Metcalf. Pt is awake in bed eating breakfast. On RA, no complaints of pain or apparent distress noted. IV intact. Stephens intact and draining. SCDs on. Bed locked in lowest position, side rails up, call light within reach. Will continue to monitor.
[2019-09-06 08:00] VITALS: BP 113/70
--- NOTE | 2019-09-06 09:51 | General Progress Note ---
Assessment/Plan Status: progressing Assessment/Plan: Assessment - N/V - resolved - diarrhea - C diff (-) - Leukocytosis - resolved - OBS Recommendations - push po - follow symptoms and exam - replace lytes PRN Subjective Allergies: Coded Allergies: ERYTHROMYCIN BASE (Unverified Allergy, Unknown, 01/31/15) Subjective awake non verbal tolerating Soft diet Objective Last 24 Hour Vital Signs Date Time Temp Pulse Resp B/P (MAP) Pulse Ox O2 Delivery O2 Flow Rate FiO2 09/06/19 08:00 97.6 100 19 113/70 (84) 100 09/06/19 04:00 97.5 63 19 120/61 (80) 95 09/06/19 00:00 97.0 74 19 93/55 (68) 98 09/05/19 21:00 Room Air 09/05/19 20:00 99.0 102 19 97/56 (70) 98 09/05/19 16:00 98.7 100 20 105/71 (82) 99 09/05/19 12:00 98.0 88 20 116/69 (85) 99 Intake and Output 09/05/19 09/06/19 19:00 07:00 Intake Total 960 ml 700 ml Output Total 2100 ml 1300 ml Balance -1140 ml -600 ml Intake Oral 960 ml 700 ml Output Urine Total 2100 ml 1300 ml # Bowel Movements 3 Height (Feet): 5 Height (Inches): 4.00 Weight (Pounds): 110 Objective WDWN NCAT supple CTA RRR abd soft (+) contracted OBS Roxann Crowell MD Sep 06, 2019 09:51
--- NOTE | 2019-09-06 10:11 | Nephrology Progress Note ---
Assessment/Plan Problem List: (1) Hypernatremia (2) Hypomagnesemia (3) Hypokalemia (4) UTI (urinary tract infection) (5) Mentally disabled (6) Abdominal distension Assessment Hypokalemia Hypernatremia Hypomagnesemia Dehydration Sepsis Volvulus Pyelonephritis Development delay UTI (urinary tract infection) Mentally disabled Abdominal distension Plan Supplements as needed Per consultants check TSH Per ID Subjective ROS Limited/Unobtainable: No Objective Objective Last 24 Hour Vital Signs Date Time Temp Pulse Resp B/P (MAP) Pulse Ox O2 Delivery O2 Flow Rate FiO2 09/06/19 08:00 97.6 100 19 113/70 (84) 100 09/06/19 04:00 97.5 63 19 120/61 (80) 95 09/06/19 00:00 97.0 74 19 93/55 (68) 98 09/05/19 21:00 Room Air 09/05/19 20:00 99.0 102 19 97/56 (70) 98 09/05/19 16:00 98.7 100 20 105/71 (82) 99 09/05/19 12:00 98.0 88 20 116/69 (85) 99 Intake and Output 09/05/19 09/06/19 19:00 07:00 Intake Total 960 ml 700 ml Output Total 2100 ml 1300 ml Balance -1140 ml -600 ml Intake Oral 960 ml 700 ml Output Urine Total 2100 ml 1300 ml # Bowel Movements 3 Height (Feet): 5 Height (Inches): 4.00 Weight (Pounds): 110 General Appearance: no apparent distress Objective no change Osman Caruso MD Sep 06, 2019 10:11
[2019-09-06 12:00] VITALS: BP 103/67
--- NOTE | 2019-09-06 12:02 | General Progress Note ---
Assessment/Plan Problem List: (1) Mentally disabled ICD Codes: F79 - Mentally disabled SNOMED: 57704582 (2) Abdominal distension ICD Codes: R14.0 - Abdominal distension SNOMED: 69714541 (3) UTI (urinary tract infection) ICD Codes: N39.0 - Urinary tract infection, site not specified SNOMED: 43455039 (4) Sepsis ICD Codes: A41.9 - Sepsis SNOMED: 02205465 (5) Hypokalemia ICD Codes: E87.6 - Hypokalemia SNOMED: 34168311 (6) Hypomagnesemia ICD Codes: E83.42 - Hypomagnesemia SNOMED: 671453123 Status: progressing Assessment/Plan: afebrile no acute events nonverbal labs are normal discuss w gi sbo improving mental delay Subjective ROS Limited/Unobtainable: Yes Allergies: Coded Allergies: ERYTHROMYCIN BASE (Unverified Allergy, Unknown, 01/31/15) Objective Last 24 Hour Vital Signs Date Time Temp Pulse Resp B/P (MAP) Pulse Ox O2 Delivery O2 Flow Rate FiO2 09/06/19 09:00 Room Air 09/06/19 08:00 97.6 100 19 113/70 (84) 100 09/06/19 04:00 97.5 63 19 120/61 (80) 95 09/06/19 00:00 97.0 74 19 93/55 (68) 98 09/05/19 21:00 Room Air 09/05/19 20:00 99.0 102 19 97/56 (70) 98 09/05/19 16:00 98.7 100 20 105/71 (82) 99 Intake and Output 09/05/19 09/06/19 19:00 07:00 Intake Total 960 ml 700 ml Output Total 2100 ml 1300 ml Balance -1140 ml -600 ml Intake Oral 960 ml 700 ml Output Urine Total 2100 ml 1300 ml # Bowel Movements 3 Height (Feet): 5 Height (Inches): 4.00 Weight (Pounds): 110 General Appearance: confused Cardiovascular: normal rate Respiratory/Chest: lungs clear Abdomen: soft Kyleigh Calixto MD Sep 06, 2019 12:02
--- NOTE | 2019-09-06 12:57 | NUR ---
CASE MANAGEMENT: REVIEW 09/05/2019 SI:NONINFECTIVE GASTROENTERITIS AND COLITIS. T 97 HR 96 RR 19 B/P 141/84 SATS 96% ON RA BUN 3 GLU 130 IS:PEPCID PO BID CYTOMEL PO QD SINGULAIR PO Q24H MED/SURG 09/06/2019 SI:NONINFECTIVE GASTROENTERITIS AND COLITIS. T 98.9 HR 100 RR 18 B/P 103/67 SATS 100% ON RA NO LABS TODAY IS:PEPCID PO BID CYTOMEL PO QD SINGULAIR PO Q24H MED/SURG
--- NOTE | 2019-09-06 13:38 | Surgery Progress Note ---
Surgery Progress Note Subjective Symptoms: improved, tolerating diet, voiding well, passing flatus, BM Objective Last 24 Hour Vital Signs Date Time Temp Pulse Resp B/P (MAP) Pulse Ox O2 Delivery O2 Flow Rate FiO2 09/06/19 12:00 98.9 100 18 103/67 (79) 100 09/06/19 09:00 Room Air 09/06/19 08:00 97.6 100 19 113/70 (84) 100 09/06/19 04:00 97.5 63 19 120/61 (80) 95 09/06/19 00:00 97.0 74 19 93/55 (68) 98 09/05/19 21:00 Room Air 09/05/19 20:00 99.0 102 19 97/56 (70) 98 09/05/19 16:00 98.7 100 20 105/71 (82) 99 I&O Intake and Output 09/05/19 09/06/19 19:00 07:00 Intake Total 960 ml 700 ml Output Total 2100 ml 1300 ml Balance -1140 ml -600 ml Intake Oral 960 ml 700 ml Output Urine Total 2100 ml 1300 ml # Bowel Movements 3 Dressing: other Wound: other Drains: other Cardiovascular: RSR Respiratory: clear Abdomen: soft, non-tender, present bowel sounds, other Extremities: no tenderness, no cyanosis, other Plan Problems: (1) Abdominal distension Assessment & Plan: This is a 49-year-old female with significant medical comorbidities prior history of volvulus and chronic comorbidities who is nonverbal at baseline and care dependent presenting with abdominal distention nausea and emesis. On examination abdomen distended soft cannot significantly define tenderness but does grimace no peritoneal signs. Leukocytosis, abnormal labs. KUB noted Dilated colon demonstrated. Moderate stool in the right hemicolon noted. Similar Distended colon, nonspecific.. No evidence of small or large bowel obstruction or sigmoid volvulus although the colon is moderately distended but in a diffuse fashion. Moderate retention of feces within the right hemicolon. Abnormal appearance of the distal esophagus showing moderate wall thickening. Consider evaluation within the osteopenic. Atherosclerotic vascular disease. Technically limited evaluation due to artifacts Does not seem to be volvulus at this time given KUB findings and wet read of the CT scan. Seemingly more distended colon throughout. No acute surgical intervention planned at this time. Recommend rectal tube GI evaluation noted we will continue to follow with serial exams C. diff Antibiotics as per infectious disease Abdominal exam somewhat improved today. Softer. Less distended. Diet as tolerated KUB noted unlikely volvulus cont diet We will continue with work-up and follow with recommendations thank you for this consultation Tylor Wilkins Sep 06, 2019 13:38
--- NOTE | 2019-09-06 14:19 | Infectious Diseases Prog Note ---
Assessment/Plan Assessment/Plan IMPRESSION: 1. leukocytosis resolved 2. Abdominal distention, nausea, vomiting.,gastroenteritis 3. Mild hematuria with mild pyuria, treated for UTI 4. hypokalemia, corrected 5. decreased albumin RECOMMENDATION: observe off antibiotic Subjective ROS Limited/Unobtainable: Yes Constitutional: Denies: fever Allergies: Coded Allergies: ERYTHROMYCIN BASE (Unverified Allergy, Unknown, 01/31/15) Objective Vital Signs Last 24 Hour Vital Signs Date Time Temp Pulse Resp B/P (MAP) Pulse Ox O2 Delivery O2 Flow Rate FiO2 09/06/19 12:00 98.9 100 18 103/67 (79) 100 09/06/19 09:00 Room Air 09/06/19 08:00 97.6 100 19 113/70 (84) 100 09/06/19 04:00 97.5 63 19 120/61 (80) 95 09/06/19 00:00 97.0 74 19 93/55 (68) 98 09/05/19 21:00 Room Air 09/05/19 20:00 99.0 102 19 97/56 (70) 98 09/05/19 16:00 98.7 100 20 105/71 (82) 99 Height (Feet): 5 Height (Inches): 4.00 Weight (Pounds): 110 General Appearance: no acute distress HEENT: mucous membranes moist Respiratory/Chest: normal breath sounds Cardiovascular: normal rate Abdomen: soft, non tender Extremities: no edema Neurologic/Psychiatric: alert, responsive, aphasia Current Medications Medications (Trade) Dose Ordered Sig/Melchor Route PRN Reason Start Time Stop Time Status Last Admin Dose Admin Acetaminophen (Tylenol) 650 mg Q4H PRN ORAL fever 09/01/19 15:45 10/01/19 15:44 Famotidine (Pepcid) 20 mg BID ORAL 09/06/19 18:00 10/06/19 17:59 Liothyronine Sodium (Cytomel) 5 mcg DAILY@0600 ORAL 09/06/19 06:00 10/06/19 05:59 09/06/19 05:02 Lorazepam (Ativan 2mg/ml 1ml) 0.5 mg Q4H PRN IV For Anxiety 09/01/19 15:45 09/08/19 15:44 09/06/19 11:18 Montelukast Sodium (Singulair) 10 mg Q24H ORAL 09/02/19 16:00 10/02/19 15:59 09/05/19 15:34 Ondansetron HCl (Zofran) 4 mg Q6H PRN IVP Nausea & Vomiting 09/01/19 15:45 10/01/19 15:44 Gerson Mancera MD Sep 06, 2019 14:19
--- NOTE | 2019-09-06 14:30 | NUR ---
NURSE NOTES: Dr. Villafuerte said ok to change the ativan dose from 0.5 mg to 1 mg. Will follow.
[2019-09-06] MEDS ORDERED: LORazepam Inj 2mg/ml 1ml IV PRN ×2 (14:43→15:45)
[2019-09-06] MEDS: Montelukast 10mg tablet ORAL SCH (15:33)
[2019-09-06 16:00] VITALS: BP 111/72
--- NOTE | 2019-09-06 19:05 | NUR ---
HAND-OFF: Report given to ROGELIO Jimenez and ROGELIO Metcalf.
--- NOTE | 2019-09-06 19:55 | NUR ---
NURSE NOTES: Received patient in bed. Alert x1. Patient does not appear to be in distress. IV site in the left forearm noted with no redness or swelling. FC in place and draining clear yellow urine.
[2019-09-06 20:00] VITALS: BP 110/66
[2019-09-07] VITALS: BP 99/63
[2019-09-07 04:00] VITALS: BP 101/65
[2019-09-07] MEDS: Liothyronine 5mcg tab ORAL SCH (05:05)
--- NOTE | 2019-09-07 07:23 | NUR ---
NURSE NOTES: Report given to Tu MERCADO
[2019-09-07 07:30] LABS: BASOPHILS % (AUTO) 0.5 % (0.0-2.0); EOSINOPHILS % (AUTO) 1.9 % (0.0-3.0); HEMATOCRIT 39.8 % (37.0-47.0); HEMOGLOBIN 12.9 G/DL (12.0-16.0); LYMPHOCYTES % (AUTO) 15.6 % (20.0-45.0); MEAN CORPUSCULAR VOLUME 82 FL (80-99); MONOCYTES % (AUTO) 9.6 % (1.0-10.0); NEUTROPHILS % (AUTO) 72.5 % (45.0-75.0); PLATELET COUNT 308 K/UL (150-450); RED BLOOD COUNT 4.85 M/UL (4.20-5.40); WHITE BLOOD COUNT 9.1 K/UL (4.8-10.8)
[2019-09-07 08:00] VITALS: BP 102/68
[2019-09-07 08:06] LABS: ALANINE AMINOTRANSFERASE 40 U/L (12-78); ALBUMIN 2.8 G/DL (3.4-5.0); ALBUMIN/GLOBULIN RATIO 0.7 (1.0-2.7); ALKALINE PHOSPHATASE 67 U/L (46-116); ANION GAP 5 mmol/L (5-15); ASPARTATE AMINO TRANSFERASE 27 U/L (15-37); BILIRUBIN,TOTAL 0.3 MG/DL (0.2-1.0); BLOOD UREA NITROGEN 8 mg/dL (7-18); CALCIUM 8.5 MG/DL (8.5-10.1); CARBON DIOXIDE 30 MMOL/L (21-32); CHLORIDE 104 MMOL/L (98-107); CREATININE 0.8 MG/DL (0.55-1.30); PHOSPHORUS 3.9 MG/DL (2.5-4.9); POTASSIUM 3.8 MMOL/L (3.5-5.1); SODIUM 139 MMOL/L (136-145)
--- NOTE | 2019-09-07 09:19 | General Progress Note ---
Assessment/Plan Status: progressing Assessment/Plan: Assessment - N/V - resolved - diarrhea - C diff (-) - Leukocytosis - resolved - OBS Recommendations - push po - follow symptoms and exam - replace lytes PRN Subjective Allergies: Coded Allergies: ERYTHROMYCIN BASE (Unverified Allergy, Unknown, 01/31/15) Subjective awake non verbal tolerating Soft diet Objective Last 24 Hour Vital Signs Date Time Temp Pulse Resp B/P (MAP) Pulse Ox O2 Delivery O2 Flow Rate FiO2 09/07/19 08:00 97.7 91 19 102/68 (79) 98 09/07/19 05:36 98.7 09/07/19 04:00 99.7 97 17 101/65 (77) 96 09/07/19 00:00 98.7 105 16 99/63 (75) 99 09/06/19 21:00 Room Air 09/06/19 20:00 98.8 102 20 110/66 (81) 96 09/06/19 16:00 98.8 69 19 111/72 (85) 100 09/06/19 12:00 98.9 100 18 103/67 (79) 100 Intake and Output 09/06/19 09/07/19 18:59 06:59 Intake Total 960 ml 800 ml Output Total 1000 ml 2500 ml Balance -40 ml -1700 ml Intake Oral 960 ml 800 ml Output Urine Total 1000 ml 2500 ml Laboratory Tests 09/07/19 06:10: White Blood Count 9.1, Red Blood Count 4.85, Hemoglobin 12.9, Hematocrit 39.8, Mean Corpuscular Volume 82, Mean Corpuscular Hemoglobin 26.6L, Mean Corpuscular Hemoglobin Concent 32.4, Red Cell Distribution Width 11.0L, Platelet Count 308, Mean Platelet Volume 5.5L, Neutrophils (%) (Auto) 72.5, Lymphocytes (%) (Auto) 15.6L, Monocytes (%) (Auto) 9.6, Eosinophils (%) (Auto) 1.9, Basophils (%) (Auto ) 0.5, Sodium Level 139, Potassium Level 3.8, Chloride Level 104, Carbon Dioxide Level 30, Anion Gap 5, Blood Urea Nitrogen 8, Creatinine 0.8, Estimat Glomerular Filtration Rate > 60, Glucose Level 76, Uric Acid 1.8L, Calcium Level 8.5, Phosphorus Level 3.9, Magnesium Level 2.0, Total Bilirubin 0.3, Aspartate Amino Transf (AST/SGOT) 27, Alanine Aminotransferase (ALT/SGPT) 40, Alkaline Phosphatase 67, C-Reactive Protein, Quantitative < 0.4, Total Protein 6.7, Albumin 2.8L, Globulin 3.9, Albumin/Globulin Ratio 0.7L Height (Feet): 5 Height (Inches): 4.00 Weight (Pounds): 110 Objective WDWN NCAT supple CTA RRR abd soft (+) contracted OBS Roxann Crowell MD Sep 07, 2019 09:18
--- NOTE | 2019-09-07 09:52 | NUR ---
NURSE NOTES: PT RESTING IN BED, EATING BREAKFAST. IN NO APPARENT DISTRESS AT THIS TIME. PT CAN ANSWER VERY SIMPLE QUESTIONS. BED IN LOWEST POSITION WITH BEDSIDE RAILS X2 RAISED. BED ALARM ON ZONE 2. ESCOTO CATH DRAINING STRAW COLORED URINE BY GRAVITY. PT EDUCATED ON USING CALL LIGHT. PT DID NOT GIVE ANY VERBAL RESPONSE INDICATING SHE HAS UNDERSTOOD RN'S TEACHING. CALL LIGHT PLACED WITHIN REACH. WILL CONTINUE TO MONITOR.
--- NOTE | 2019-09-07 09:59 | NUR ---
NURSE NOTES: RN SPOKE TO DR PINEDA AND MADE AWARE DISCHARGE BACK TO [facility], NEED CLEARANCE TO KEEP ESCOTO. PER DR PINEDA, KEEP ESCOTO CATHETER UPON DISCHARGE AND FOLLOW UP WITH DR PINEDA IF ANY ISSUES WITH ECSOTO CATH. CRN MADE AWARE.
--- NOTE | 2019-09-07 10:04 | NUR ---
NURSE NOTES: RN SPOKE TO TAL GOODWIN, UNDERCOVER OPERATOR AT [facility], AND MADE AWARE PT WILL BE DISCHARGED WITH ESCOTO CATHETER. PER TAL, PT CANNOT BE ACCEPTED BACK WITH ESCOTO CATHETER AND WILL NEED PLACEMENT AT SNF. PER TAL, EVEN WITH HOME HEALTH SERVICES, PT CANNOT BE ACCEPTED BACK. CRN MADE AWARE. LEFT MESSAGE FOR DR AYON REGARDING CLARIFICATION OF DISCHARGE ORDER.
--- NOTE | 2019-09-07 10:37 | NUR ---
*-* INSURANCE *-* ALL CLINICALS AND REVIEWS HAVE BEEN FAXED TO: [employer] Ref#[id number] CM: Kemi Dougherty#[phone] ext [phone] fax#[phone]
--- NOTE | 2019-09-07 11:56 | NUR ---
NURSE NOTES: RN received call from Kemi at [facility]. Per Kemi, facility is accepting patient with teague in. police manager and notified.
[2019-09-07 12:00] VITALS: BP 114/76
--- NOTE | 2019-09-07 12:53 | Infectious Diseases Prog Note ---
Assessment/Plan Assessment/Plan IMPRESSION: 1. leukocytosis resolved 2. Abdominal distention, nausea, vomiting.,gastroenteritis 3. Mild hematuria with mild pyuria, treated for UTI 4. hypokalemia, corrected 5. decreased albumin RECOMMENDATION: observe off antibiotic Subjective ROS Limited/Unobtainable: Yes Allergies: Coded Allergies: ERYTHROMYCIN BASE (Unverified Allergy, Unknown, 01/31/15) Objective Vital Signs Last 24 Hour Vital Signs Date Time Temp Pulse Resp B/P (MAP) Pulse Ox O2 Delivery O2 Flow Rate FiO2 09/07/19 12:00 98.8 100 18 114/76 (89) 100 09/07/19 09:00 Room Air 09/07/19 08:00 97.7 91 19 102/68 (79) 98 09/07/19 05:36 98.7 09/07/19 04:00 99.7 97 17 101/65 (77) 96 09/07/19 00:00 98.7 105 16 99/63 (75) 99 09/06/19 21:00 Room Air 09/06/19 20:00 98.8 102 20 110/66 (81) 96 09/06/19 16:00 98.8 69 19 111/72 (85) 100 Height (Feet): 5 Height (Inches): 4.00 Weight (Pounds): 110 General Appearance: no acute distress HEENT: mucous membranes moist Respiratory/Chest: lungs clear Cardiovascular: normal rate Abdomen: soft, non tender Extremities: no edema Neurologic/Psychiatric: alert, responsive Laboratory Tests Test 09/07/19 06:10 White Blood Count 9.1 K/UL (4.8-10.8) Red Blood Count 4.85 M/UL (4.20-5.40) Hemoglobin 12.9 G/DL (12.0-16.0) Hematocrit 39.8 % (37.0-47.0) Mean Corpuscular Volume 82 FL (80-99) Mean Corpuscular Hemoglobin 26.6 PG (27.0-31.0) L Mean Corpuscular Hemoglobin Concent 32.4 G/DL (32.0-36.0) Red Cell Distribution Width 11.0 % (11.6-14.8) L Platelet Count 308 K/UL (150-450) Mean Platelet Volume 5.5 FL (6.5-10.1) L Neutrophils (%) (Auto) 72.5 % (45.0-75.0) Lymphocytes (%) (Auto) 15.6 % (20.0-45.0) L Monocytes (%) (Auto) 9.6 % (1.0-10.0) Eosinophils (%) (Auto) 1.9 % (0.0-3.0) Basophils (%) (Auto) 0.5 % (0.0-2.0) Sodium Level 139 MMOL/L (136-145) Potassium Level 3.8 MMOL/L (3.5-5.1) Chloride Level 104 MMOL/L (98-107) Carbon Dioxide Level 30 MMOL/L (21-32) Anion Gap 5 mmol/L (5-15) Blood Urea Nitrogen 8 mg/dL (7-18) Creatinine 0.8 MG/DL (0.55-1.30) Estimat Glomerular Filtration Rate > 60 mL/min (>60) Glucose Level 76 MG/DL (74-106) Uric Acid 1.8 MG/DL (2.6-7.2) L Calcium Level 8.5 MG/DL (8.5-10.1) Phosphorus Level 3.9 MG/DL (2.5-4.9) Magnesium Level 2.0 MG/DL (1.8-2.4) Total Bilirubin 0.3 MG/DL (0.2-1.0) Aspartate Amino Transf (AST/SGOT) 27 U/L (15-37) Alanine Aminotransferase (ALT/SGPT) 40 U/L (12-78) Alkaline Phosphatase 67 U/L (46-116) C-Reactive Protein, Quantitative < 0.4 mg/dL (0.00-0.90) Total Protein 6.7 G/DL (6.4-8.2) Albumin 2.8 G/DL (3.4-5.0) L Globulin 3.9 g/dL Albumin/Globulin Ratio 0.7 (1.0-2.7) L Current Medications Medications (Trade) Dose Ordered Sig/Melchor Route PRN Reason Start Time Stop Time Status Last Admin Dose Admin Acetaminophen (Tylenol) 650 mg Q4H PRN ORAL fever 09/01/19 15:45 10/01/19 15:44 09/07/19 05:06 Famotidine (Pepcid) 20 mg BID ORAL 09/06/19 18:00 10/06/19 17:59 09/07/19 08:18 Liothyronine Sodium (Cytomel) 5 mcg DAILY@0600 ORAL 09/06/19 06:00 10/06/19 05:59 09/07/19 05:05 Lorazepam (Ativan 2mg/ml 1ml) 1 mg Q4H PRN IV For Anxiety 09/06/19 14:43 09/13/19 14:42 09/06/19 14:47 Montelukast Sodium (Singulair) 10 mg Q24H ORAL 09/02/19 16:00 10/02/19 15:59 09/06/19 15:33 Ondansetron HCl (Zofran) 4 mg Q6H PRN IVP Nausea & Vomiting 09/01/19 15:45 10/01/19 15:44 Gerson Mancera MD Sep 07, 2019 12:53
--- NOTE | 2019-09-07 12:53 | NUR ---
N[facility]SE NOTES[facility] DATA INTEGRATION ANALYST [facility] ETA 1345HRS.
--- NOTE | 2019-09-07 13:27 | CDS Physician Query ---
Clarification is required for compliance, coding accuracy, and to reflect severity of illness for this patient Dear Dr. Osman Caruso Date: 09/07/2019 Operations Accountant/CDS Name: Rhina Dia Clinical documentation states: ID consult: 49-year-old female , admitted today from a [facility] facility because of abdominal distention , nausea, vomiting, and also watery diarrhea...PAST MEDICAL HISTORY: Significant for Volvulus, UTI, and developmental delay. RD note: NUTRITION DIAGNOSIS:* Increased pro needs r/t mild wasting AEB pt w/ mild clavicular, BL UE wasting. * Altered GI function r/t possible volvulus AEB pt adm w/ n/v and abdominal distention, w/ h/o volvulus and constipation. BMI 18.9 Please select the most appropriate option: [] Protein/Calorie Malnutrition [] Mild [] Moderate [] Severe [] Hypoalbuminemia [] Cachexia [] Underweight [] Intestinal malabsorption [] Other [] Unable to determine [] Not Applicable Present on Admission: [] Yes [] No [] Clinically Undetermined Physician signature Date Please also document in your Progress Notes and/or Discharge Summary and indicate if the condition was present on admission. MTDD
--- NOTE | 2019-09-07 14:09 | NUR ---
NURSE NOTES: CRN RECEIVED CALL FROM DIRECTOR OF [facility], STATING THEY CANNOT RECEIVE PT WITH ESCOTO CATHETER. CRN LEFT MESSAGE FOR DR AYON. WAITING FOR NEW ORDERS. PT PLACED ON WILL CALL FROM [facility]BUL[facility] CALL BACK #[phone] AND REFERENCE NUMBER [id number].
--- NOTE | 2019-09-07 15:31 | Nephrology Progress Note ---
Assessment/Plan Problem List: (1) Hypernatremia (2) Hypomagnesemia (3) Hypokalemia (4) UTI (urinary tract infection) (5) Mentally disabled (6) Abdominal distension Assessment Hypokalemia Hypernatremia Hypomagnesemia Dehydration Sepsis Volvulus Pyelonephritis Development delay UTI (urinary tract infection) Mentally disabled Abdominal distension Plan Supplements as needed Per consultants check TSH Per ID Subjective ROS Limited/Unobtainable: No Objective Objective Last 24 Hour Vital Signs Date Time Temp Pulse Resp B/P (MAP) Pulse Ox O2 Delivery O2 Flow Rate FiO2 09/07/19 12:00 98.8 100 18 114/76 (89) 100 09/07/19 09:00 Room Air 09/07/19 08:00 97.7 91 19 102/68 (79) 98 09/07/19 05:36 98.7 09/07/19 04:00 99.7 97 17 101/65 (77) 96 09/07/19 00:00 98.7 105 16 99/63 (75) 99 09/06/19 21:00 Room Air 09/06/19 20:00 98.8 102 20 110/66 (81) 96 09/06/19 16:00 98.8 69 19 111/72 (85) 100 Intake and Output 09/06/19 09/07/19 19:00 07:00 Intake Total 960 ml 800 ml Output Total 1000 ml 2500 ml Balance -40 ml -1700 ml Intake Oral 960 ml 800 ml Output Urine Total 1000 ml 2500 ml Laboratory Tests 09/07/19 06:10: White Blood Count 9.1, Red Blood Count 4.85, Hemoglobin 12.9, Hematocrit 39.8, Mean Corpuscular Volume 82, Mean Corpuscular Hemoglobin 26.6L, Mean Corpuscular Hemoglobin Concent 32.4, Red Cell Distribution Width 11.0L, Platelet Count 308, Mean Platelet Volume 5.5L, Neutrophils (%) (Auto) 72.5, Lymphocytes (%) (Auto) 15.6L, Monocytes (%) (Auto) 9.6, Eosinophils (%) (Auto) 1.9, Basophils (%) (Auto ) 0.5, Sodium Level 139, Potassium Level 3.8, Chloride Level 104, Carbon Dioxide Level 30, Anion Gap 5, Blood Urea Nitrogen 8, Creatinine 0.8, Estimat Glomerular Filtration Rate > 60, Glucose Level 76, Uric Acid 1.8L, Calcium Level 8.5, Phosphorus Level 3.9, Magnesium Level 2.0, Total Bilirubin 0.3, Aspartate Amino Transf (AST/SGOT) 27, Alanine Aminotransferase (ALT/SGPT) 40, Alkaline Phosphatase 67, C-Reactive Protein, Quantitative < 0.4, Total Protein 6.7, Albumin 2.8L, Globulin 3.9, Albumin/Globulin Ratio 0.7L Height (Feet): 5 Height (Inches): 4.00 Weight (Pounds): 110 General Appearance: no apparent distress Objective no change Osman Caruso MD Sep 07, 2019 15:30
--- NOTE | 2019-09-07 15:41 | NUR ---
NURSE NOTES: RN LEFT MESSAGE FOR DR PINEDA REGARDING PENDING DISCHARGE. AWAITING NEW ORDERS.
[2019-09-07 15:44] VITALS: BP 103/67
--- NOTE | 2019-09-07 17:01 | NUR ---
PROBATION AGENT NOTES SPOKE WITH ALFONZO FROM [employer]UR[employer] MADE AWARE OF NEEDED PT REQUIRNG SNF PLACEMENT DUE TO ESCOTO CATHETER IN PLACE. ALFONZO REQUESTED [facility] C[facility].EXPLAINED TO ALFONZO PT IS MENTALLY CHALLENGED AND CANNOT CARE FOR HERSELF.ALFONZO WILL CALL [facility] AND SEE IF PT CAN RETURN. WILL FOLLOW UP IN AM.
[2019-09-07] MEDS: Montelukast 10mg tablet ORAL SCH (17:07)
--- NOTE | 2019-09-07 17:40 | NUR ---
NURSE NOTES: RN LEFT SECOND MESSAGE FOR DR PINEDA REGARDING [facility] NOT ACCEPTING PT WITH ESCOTO CATH. RN LEFT ANOTHER MESSAGE WITH DR AYON.
--- NOTE | 2019-09-07 18:23 | Surgery Progress Note ---
Surgery Progress Note Subjective Symptoms: improved, tolerating diet, voiding well, passing flatus, BM Objective Last 24 Hour Vital Signs Date Time Temp Pulse Resp B/P (MAP) Pulse Ox O2 Delivery O2 Flow Rate FiO2 09/07/19 15:44 98.0 98 19 103/67 (79) 99 09/07/19 12:00 98.8 100 18 114/76 (89) 100 09/07/19 09:00 Room Air 09/07/19 08:00 97.7 91 19 102/68 (79) 98 09/07/19 05:36 98.7 09/07/19 04:00 99.7 97 17 101/65 (77) 96 09/07/19 00:00 98.7 105 16 99/63 (75) 99 09/06/19 21:00 Room Air 09/06/19 20:00 98.8 102 20 110/66 (81) 96 I&O Intake and Output 09/06/19 09/07/19 19:00 07:00 Intake Total 960 ml 800 ml Output Total 1000 ml 2500 ml Balance -40 ml -1700 ml Intake Oral 960 ml 800 ml Output Urine Total 1000 ml 2500 ml Dressing: other Wound: other Cardiovascular: RSR Respiratory: clear Abdomen: soft, distended, non-tender, present bowel sounds Extremities: no edema, no tenderness, no cyanosis Laboratory Tests Test 09/07/19 06:10 White Blood Count 9.1 K/UL (4.8-10.8) Red Blood Count 4.85 M/UL (4.20-5.40) Hemoglobin 12.9 G/DL (12.0-16.0) Hematocrit 39.8 % (37.0-47.0) Mean Corpuscular Volume 82 FL (80-99) Mean Corpuscular Hemoglobin 26.6 PG (27.0-31.0) L Mean Corpuscular Hemoglobin Concent 32.4 G/DL (32.0-36.0) Red Cell Distribution Width 11.0 % (11.6-14.8) L Platelet Count 308 K/UL (150-450) Mean Platelet Volume 5.5 FL (6.5-10.1) L Neutrophils (%) (Auto) 72.5 % (45.0-75.0) Lymphocytes (%) (Auto) 15.6 % (20.0-45.0) L Monocytes (%) (Auto) 9.6 % (1.0-10.0) Eosinophils (%) (Auto) 1.9 % (0.0-3.0) Basophils (%) (Auto) 0.5 % (0.0-2.0) Sodium Level 139 MMOL/L (136-145) Potassium Level 3.8 MMOL/L (3.5-5.1) Chloride Level 104 MMOL/L (98-107) Carbon Dioxide Level 30 MMOL/L (21-32) Anion Gap 5 mmol/L (5-15) Blood Urea Nitrogen 8 mg/dL (7-18) Creatinine 0.8 MG/DL (0.55-1.30) Estimat Glomerular Filtration Rate > 60 mL/min (>60) Glucose Level 76 MG/DL (74-106) Uric Acid 1.8 MG/DL (2.6-7.2) L Calcium Level 8.5 MG/DL (8.5-10.1) Phosphorus Level 3.9 MG/DL (2.5-4.9) Magnesium Level 2.0 MG/DL (1.8-2.4) Total Bilirubin 0.3 MG/DL (0.2-1.0) Aspartate Amino Transf (AST/SGOT) 27 U/L (15-37) Alanine Aminotransferase (ALT/SGPT) 40 U/L (12-78) Alkaline Phosphatase 67 U/L (46-116) C-Reactive Protein, Quantitative < 0.4 mg/dL (0.00-0.90) Total Protein 6.7 G/DL (6.4-8.2) Albumin 2.8 G/DL (3.4-5.0) L Globulin 3.9 g/dL Albumin/Globulin Ratio 0.7 (1.0-2.7) L Plan Problems: (1) Abdominal distension Assessment & Plan: This is a 49-year-old female with significant medical comorbidities prior history of volvulus and chronic comorbidities who is nonverbal at baseline and care dependent presenting with abdominal distention nausea and emesis. On examination abdomen distended soft cannot significantly define tenderness but does grimace no peritoneal signs. Leukocytosis, abnormal labs. KUB noted Dilated colon demonstrated. Moderate stool in the right hemicolon noted. Similar Distended colon, nonspecific.. No evidence of small or large bowel obstruction or sigmoid volvulus although the colon is moderately distended but in a diffuse fashion. Moderate retention of feces within the right hemicolon. Abnormal appearance of the distal esophagus showing moderate wall thickening. Consider evaluation within the osteopenic. Atherosclerotic vascular disease. Technically limited evaluation due to artifacts Does not seem to be volvulus at this time given KUB findings and wet read of the CT scan. Seemingly more distended colon throughout. No acute surgical intervention planned at this time. Recommend rectal tube GI evaluation noted we will continue to follow with serial exams C. diff Antibiotics as per infectious disease Abdominal exam somewhat improved today. Softer. Less distended. Diet as tolerated KUB noted unlikely volvulus baseline distended given history d/c planning cont diet We will continue with work-up and follow with recommendations thank you for this consultation Tylor Wilkins Sep 07, 2019 18:23
--- NOTE | 2019-09-07 18:39 | NUR ---
NURSE NOTES: DR AYON WITH ORDER TO DISCHARGE TO SNF.
--- NOTE | 2019-09-07 18:52 | NUR ---
NURSE NOTES: RECEIVED CALL FROM DR PINEDA, WITH ORDER TO D/C [facility] UPON DISCHARGE. CRN SPOKE TO TAL GOODWIN AT [facility] AND STATED PT CAN BE RECEIVED AT ANY TIME. RN SPOKE TO "[facility]" TRANSPORTATION COMPANY. PER SOPHY, THEY WILL CALL BACK WITH ASSIGNED VENDOR WHO WILL SOCIOLOGY INSTRUCTOR PT. WILL ENDORSE TO MORNING SHOW HOST RN. CRN MADE AWARE.
--- NOTE | 2019-09-07 19:24 | NUR ---
NURSE NOTES: ESCOTO CATHETER DISCONTINUED ORDERED. IN NO APPARENT DISTRESS. PT TOLERATED WELL.
--- NOTE | 2019-09-07 19:24 | NUR ---
HAND-OFF: Report given to Clark VILLASENOR RN.
--- NOTE | 2019-09-07 19:25 | NUR ---
NURSE NOTES: ENDORSED TO Clark VILLASENOR RN WE ARE WAITING FOR A CALL FROM "[facility]" TO TELL US WHICH AMBULANCE COMPANY WILL BE PICKING UP PT BACK TO [facility].
--- NOTE | 2019-09-07 19:43 | NUR ---
NURSE NOTES: Received patient on bed,awake. respirations even and unlabroed. no sob. bed locked and in lowest position. still waiting for the call back from the ambulance for hand picker for discharge.
[2019-09-07 20:00] VITALS: BP 103/64
--- NOTE | 2019-09-07 20:20 | General Progress Note ---
Assessment/Plan Problem List: (1) Mentally disabled ICD Codes: F79 - Mentally disabled SNOMED: 34154058 (2) Abdominal distension ICD Codes: R14.0 - Abdominal distension SNOMED: 17475580 (3) UTI (urinary tract infection) ICD Codes: N39.0 - Urinary tract infection, site not specified SNOMED: 01769846 (4) Sepsis ICD Codes: A41.9 - Sepsis SNOMED: 29985519 (5) Hypokalemia ICD Codes: E87.6 - Hypokalemia SNOMED: 40962280 (6) Hypomagnesemia ICD Codes: E83.42 - Hypomagnesemia SNOMED: 571824472 Status: progressing Assessment/Plan: cleared by gi and surgeon dc home teague per dr ennis sbo resolved mental delay Subjective ROS Limited/Unobtainable: Yes Allergies: Coded Allergies: ERYTHROMYCIN BASE (Unverified Allergy, Unknown, 01/31/15) Objective Last 24 Hour Vital Signs Date Time Temp Pulse Resp B/P (MAP) Pulse Ox O2 Delivery O2 Flow Rate FiO2 09/07/19 20:00 97.7 100 19 103/64 (77) 97 09/07/19 15:44 98.0 98 19 103/67 (79) 99 09/07/19 12:00 98.8 100 18 114/76 (89) 100 09/07/19 09:00 Room Air 09/07/19 08:00 97.7 91 19 102/68 (79) 98 09/07/19 05:36 98.7 09/07/19 04:00 99.7 97 17 101/65 (77) 96 09/07/19 00:00 98.7 105 16 99/63 (75) 99 09/06/19 21:00 Room Air Intake and Output 09/06/19 09/07/19 19:00 07:00 Intake Total 960 ml 800 ml Output Total 1000 ml 2500 ml Balance -40 ml -1700 ml Intake Oral 960 ml 800 ml Output Urine Total 1000 ml 2500 ml Laboratory Tests 09/07/19 06:10: White Blood Count 9.1, Red Blood Count 4.85, Hemoglobin 12.9, Hematocrit 39.8, Mean Corpuscular Volume 82, Mean Corpuscular Hemoglobin 26.6L, Mean Corpuscular Hemoglobin Concent 32.4, Red Cell Distribution Width 11.0L, Platelet Count 308, Mean Platelet Volume 5.5L, Neutrophils (%) (Auto) 72.5, Lymphocytes (%) (Auto) 15.6L, Monocytes (%) (Auto) 9.6, Eosinophils (%) (Auto) 1.9, Basophils (%) (Auto ) 0.5, Sodium Level 139, Potassium Level 3.8, Chloride Level 104, Carbon Dioxide Level 30, Anion Gap 5, Blood Urea Nitrogen 8, Creatinine 0.8, Estimat Glomerular Filtration Rate > 60, Glucose Level 76, Uric Acid 1.8L, Calcium Level 8.5, Phosphorus Level 3.9, Magnesium Level 2.0, Total Bilirubin 0.3, Aspartate Amino Transf (AST/SGOT) 27, Alanine Aminotransferase (ALT/SGPT) 40, Alkaline Phosphatase 67, C-Reactive Protein, Quantitative < 0.4, Total Protein 6.7, Albumin 2.8L, Globulin 3.9, Albumin/Globulin Ratio 0.7L Height (Feet): 5 Height (Inches): 4.00 Weight (Pounds): 110 Cardiovascular: normal rate Respiratory/Chest: lungs clear Abdomen: soft Kyleigh Calixto MD Sep 07, 2019 20:20
--- NOTE | 2019-09-07 22:00 | NUR ---
NURSE NOTES: patient was Discharge per [facility] with 2 EMT'S under [facility]. IV line d/c as ordered. all belongings was released upon discharge. patient unable to sign consents. discharge papers was given to EMT's. assisted patient to transfer to [facility]. vital signs of 103/64mmhg, 109 bpm, 19 cpm, 97.9% 97%.
--- NOTE | 2019-09-08 01:30 | Consultation ---
DATE OF CONSULTATION: 09/07/2019 CONSULTING PHYSICIAN: Mitchell Villafuerte M.D. HISTORY OF PRESENT ILLNESS: This is a 49-year-old female with a history of multiple medical issues including mental retardation, history of volvulus, and congenital abnormality. She has been admitted into the hospital for medical stabilization. The patient presented with anxiety and agitation. The patient was started on Ativan. The medication was not added for it. During the evaluation, the patient was anxious. She has fatigue. No suicidal or homicidal ideation. No psychotic symptoms. PAST PSYCHIATRIC HISTORY: Anxiety disorder and depression. PAST MEDICAL HISTORY: As above. ALLERGIES: No known drug allergies. SUBSTANCE ABUSE HISTORY: No known history of illicit drug use or alcohol. MENTAL STATUS EXAMINATION: The patient is alert and confused. Knows her name. Mood is agitated. Affect is flat. Thought process, concrete. Thought content, no suicidal or homicidal ideation. Cognition is impaired. Insight and judgment are non-existent. ASSESSMENT: AXIS I: Anxiety disorder. AXIS II: Developmental delay. AXIS III: As above. AXIS IV: Low. AXIS V: 20. PLAN: 1. The patient will be continued on Ativan. We will increase the dosage. 2. Provide the patient with reality orientation. 3. The patient is allergic to erythromycin. Mitchell Villafuerte M.D. DR: JIM JOB#: [id number] CC:
--- NOTE | 2019-09-08 10:11 | Discharge Summary ---
Discharge Summary Discharge Summary _ DATE OF ADMISSION: 09/01/2019 DATE OF DISCHARGE: 09/07/2019 DISCHARGED BY: Dr Calixto REASON FOR ADMISSION: 49 years old female with past medical history of sigmoid volvulus , previous surgical resection of colon , developmental delay, presented with increased abdominal distention over the past few days. Patient was brought in by her caregiver. Caregiver reported nonbloody nonbilious vomiting. No bowel movement. Upon evaluation vital signs were stable. Laboratory work-up revealed leukocytosis WBC 13.5, stable hemoglobin and hematocrit. Troponin negative. Potassium 3.2. BUN 20, creatinine 0.8. Glucose 120. Stable LFT Urinalysis revealed +2 protein, +1 ketones, pyuria and few bacteria. Abdominal x-ray demonstrated distended colon , nonspecific. CT of the abdomen and pelvis demonstrated no evidence of small or large bowel obstruction or sigmoid volvulus , although the colon was moderately distended , but in a diffuse fashion. Moderate retention of feces within the right hemicolon. Abnormal appearance of distal esophagus . showing moderate wall thickening. In emergency department patient received enema . Surgical consult was requested . Patient subsequently admitted for further management. CONSULTANTS: ID specialist Dr. Gibbons GI specialist Dr. Crowell truck unloader Dr. Caruso psychiatrist [facility]SE: Patient admitted to medical surgical floor. Patient started on IV fluids. Surgeon reviewed all imaging. No evidence of bowel obstruction or sigmoid volvulus on the imaging. No acute surgical intervention was necessary at this time. Surgeon recommended rectal tube, bowel regimen and follow-up with serial abdominal exams and KUB. Follow-up KUB showed improvement. Patient slowly started on diet. Antiemetic were on board as needed. Patient was able to tolerate diet. Symptomatic care provided. Oral fluids were pushed. Stool culture was negative. Stool for C. difficile was negative. Diarrhea resolved. Renal parameters and electrolytes were closely monitored , electrolytes further corrected as needed , and nephrotoxic's were avoided . Wringer Operator closely followed. Prior to discharge all electrolytes stable. TSH within normal limits, but low free T3. Patient started on low-dose of Cytomel . Repeat thyroid function test in 1 month. Antibiotic provided as per infectious disease specialist. Patient undergone treatment for possible urinary tract infection. Leukocytosis resolved , patient remained afebrile. ID specialist recommended to observe patient off antibiotics. Psychiatrist followed. Per psychiatrist, patient had anxiety disorder and developmental delay. Anxiolytic were on board as needed. Patient was provided with reality orientation. Patient clinically stabilized and was ready for transfer back to [facility] for continuation of care. FINAL DIAGNOSES: Nausea and vomiting with diarrhea-resolved Possible gastroenteritis Leukocytosis -resolved Hypokalemia -corrected Pyuria , possible UTI Possible sepsis Abdominal distention Developmental delay Electrolyte abnormality Dehydration Anxiety disorder DISCHARGE MEDICATIONS: See Medication Reconciliation list. DISCHARGE INSTRUCTIONS: Patient was discharged to [facility] facility. Follow up with primary care provider in one week. I have been assigned to dictate discharge summary for this account. I was not involved in the patient's management. Laurita Cowan NP Sep 08, 2019 10:11
== END 2019-09-07 20:45 | disposition home or self-care (01) | DRG 720 ==
LOC: EMR 12:30 → 4E 13:52 → EDBEDREQ 15:06 → 4E 09-04 06:40
DX: A41.9 Sepsis, unspecified organism (principal); E44.0 Moderate protein-calorie malnutrition; E83.42 Hypomagnesemia; N12 Tubulo-interstitial nephritis, not specified as acute or chronic; K52.9 Noninfective gastroenteritis and colitis, unspecified; E86.0 Dehydration; E87.6 Hypokalemia; Z68.1 Body mass index [BMI] 19.9 or less, adult; F41.9 Anxiety disorder, unspecified; F79 Unspecified intellectual disabilities; Z88.1 Allergy status to other antibiotic agents; R14.0 Abdominal distension (gaseous); E87.0 Hyperosmolality and hypernatremia; K56.2 Volvulus; N39.0 Urinary tract infection, site not specified
CPT/HCPCS: 36415; 71045; 74018; 74177; 80053; 80061; 81003; 83036; 83690; 83735; 83880; 84100; 84439; 84443; 84481; 84484; 84550; 84703; 85007; 85025; 85610; 85730; 86140; 87045; 87324; 96374; 96375; 99285; J2405

== ENCOUNTER 2019-09-20 11:28 | Emergency (ER) | payer OTHER ==
[~2019-09-20] VITALS: Ht 162.6 cm; Wt 50.8 kg
[~2019-09-20 11:28] MED LIST changes: +SINGULAIR10 MG ORAL; +UNOBMED
[2019-09-20 11:39] VITALS: BP 115/79
[2019-09-20] MEDS ORDERED: Metoclopramide 10mg/2ml Inj IVP ONE (12:00)
[2019-09-20] MEDS ORDERED: DiphenhydrAMINE 50mg/ml Inj IVP ONE (12:00)
[2019-09-20] MEDS ORDERED: Fleet's Mineral Oil Enema RECTAL ONE (12:00)
[2019-09-20] MEDS ORDERED: Omnipaque-300 100ml vial INJ PRN (12:00)
[2019-09-20 12:06] LABS: BASOPHILS % (AUTO) 0.6 % (0.0-2.0); EOSINOPHILS % (AUTO) 1.3 % (0.0-3.0); HEMATOCRIT 40.2 % (37.0-47.0); HEMOGLOBIN 12.9 G/DL (12.0-16.0); LYMPHOCYTES % (AUTO) 19.2 % (20.0-45.0); MEAN CORPUSCULAR VOLUME 82 FL (80-99); MONOCYTES % (AUTO) 9.9 % (1.0-10.0); PLATELET COUNT 417 K/UL (150-450); RED BLOOD COUNT 4.88 M/UL (4.20-5.40); RED CELL DISTRIBUTION WIDTH 11.2 % (11.6-14.8); WHITE BLOOD COUNT 7.6 K/UL (4.8-10.8)
--- NOTE | 2019-09-20 12:09 | NUR ---
ED Nurse Note: TELEPHONE #[phone] # [phone] SOLOMON GOODWIN CAREGIVER
--- NOTE | 2019-09-20 12:10 | NUR ---
ED Nurse Note: PT WALKED IN HER CAREGIVER DUE TO CONSTIPATION. LAST BM WAS ALMOST 3 DAYS AGO. NO VOMITING OR CHILLS. PT DOES NOT DISPLAY ANY SIGNS OF PAIN. PT. ABDOMEN IS DISTENDED TO TOUCH. DENIES N/V. PT. IS CONFUSED BUT FOLLOWS COMMAND. 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
[2019-09-20 12:31] LABS: ANION GAP 8 mmol/L (5-15); BLOOD UREA NITROGEN 12 mg/dL (7-18); CALCIUM 9.3 MG/DL (8.5-10.1); CARBON DIOXIDE 27 MMOL/L (21-32); CHLORIDE 108 MMOL/L (98-107); CREATININE 0.9 MG/DL (0.55-1.30); SODIUM 143 MMOL/L (136-145)
[2019-09-20 12:36] LABS: ALANINE AMINOTRANSFERASE 22 U/L (12-78); ALBUMIN 3.5 G/DL (3.4-5.0); ALBUMIN/GLOBULIN RATIO 0.8 (1.0-2.7); ALKALINE PHOSPHATASE 74 U/L (46-116); ASPARTATE AMINO TRANSFERASE 18 U/L (15-37); BILIRUBIN,TOTAL 0.3 MG/DL (0.2-1.0)
--- NOTE | 2019-09-20 12:55 | NUR ---
ED Nurse Note: Spoke with Gerry from CT that pt needs to be taken by CT. He states they will be here soon.
--- NOTE | 2019-09-20 12:55 | Emergency Room Report ---
History of Present Illness General Chief Complaint: Constipation Present Illness HPI 49-year-old female history of developmental delay, sigmoid volvulus, history of aunts with constipation x3 days no known aggravating relieving factors severity is moderate, constant, caregivers at bedside, no acute vomiting no fevers no chills, collateral history is provided by caregiver, history is limited due to patient's inability to verbalize complaints Allergies: Coded Allergies: ERYTHROMYCIN BASE (Unverified Allergy, Unknown, 01/31/15) Patient History Limited by: other - Developmental delay Now: No Reviewed Nursing Documentation: PMH: Agreed; PSxH: Agreed Nursing Documentation-PMH Hx Cardiac Problems: No Hx Asthma: Yes Hx Cancer: No Hx Gastrointestinal Problems: No Hx Neurological Problems: No - MENTAL DISABILITY Review of Systems All Other Systems: limited - Developmental delay Physical Exam Vital Signs Date Time Temp Pulse Resp B/P (MAP) Pulse Ox O2 Delivery O2 Flow Rate FiO2 09/20/19 11:39 98.1 98 16 115/79 (91) 98 Room Air Sp02 EP Interpretation: reviewed, normal General Appearance: well appearing, no apparent distress, alert Head: normocephalic, atraumatic Eyes: bilateral eye PERRL, bilateral eye EOMI ENT: uvula midline, moist mucus membranes Neck: supple, thyroid normal, supple/symm/no masses Respiratory: lungs clear, no respiratory distress, no retraction, no accessory muscle use Cardiovascular #1: normal peripheral pulses, regular rate, rhythm, no edema, no gallop, no murmur Gastrointestinal: non tender, soft, no guarding, no rebound Rectal: other - Hard stool in the vault, 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 Differential diagnosis includes obstruction, constipation, diverticulitis Patient given bowel regimen CT scan shows no acute pathology Disposition home w/ caregiver Return precautions discussed Laboratory Tests Test 09/20/19 12:00 09/20/19 12:45 White Blood Count 7.6 K/UL (4.8-10.8) Red Blood Count 4.88 M/UL (4.20-5.40) Hemoglobin 12.9 G/DL (12.0-16.0) Hematocrit 40.2 % (37.0-47.0) Mean Corpuscular Volume 82 FL (80-99) Mean Corpuscular Hemoglobin 26.4 PG (27.0-31.0) L Mean Corpuscular Hemoglobin Concent 32.0 G/DL (32.0-36.0) Red Cell Distribution Width 11.2 % (11.6-14.8) L Platelet Count 417 K/UL (150-450) Mean Platelet Volume 5.3 FL (6.5-10.1) L Neutrophils (%) (Auto) 69.0 % (45.0-75.0) Lymphocytes (%) (Auto) 19.2 % (20.0-45.0) L Monocytes (%) (Auto) 9.9 % (1.0-10.0) Eosinophils (%) (Auto) 1.3 % (0.0-3.0) Basophils (%) (Auto) 0.6 % (0.0-2.0) Sodium Level 143 MMOL/L (136-145) Potassium Level 4.0 MMOL/L (3.5-5.1) Chloride Level 108 MMOL/L (98-107) H Carbon Dioxide Level 27 MMOL/L (21-32) Anion Gap 8 mmol/L (5-15) Blood Urea Nitrogen 12 mg/dL (7-18) Creatinine 0.9 MG/DL (0.55-1.30) Estimate Glomerular Filtration Rate > 60 mL/min (>60) Glucose Level 83 MG/DL (74-106) Calcium Level 9.3 MG/DL (8.5-10.1) Total Bilirubin 0.3 MG/DL (0.2-1.0) Aspartate Amino Transferase (AST) 18 U/L (15-37) Alanine Aminotransferase (ALT) 22 U/L (12-78) Alkaline Phosphatase 74 U/L (46-116) Total Protein 7.7 G/DL (6.4-8.2) Albumin 3.5 G/DL (3.4-5.0) Globulin 4.2 g/dL Albumin/Globulin Ratio 0.8 (1.0-2.7) L Lipase 282 U/L (73-393) Urine Color Yellow Urine Appearance Clear Urine pH 5 (4.5-8.0) Urine Specific [place] 1.020 (1.005-1.035) Urine Protein 1+ (NEGATIVE) H Urine Glucose (UA) Negative (NEGATIVE) Urine Ketones 1+ (NEGATIVE) H Urine Blood Negative (NEGATIVE) Urine Nitrite Negative (NEGATIVE) Urine Bilirubin Negative (NEGATIVE) Urine Urobilinogen 1 MG/DL (0.0-1.0) H Urine Leukocyte Esterase 1+ (NEGATIVE) H Urine RBC 0 /HPF (0 - 2) Urine WBC 0-2 /HPF (0 - 2) Urine Squamous Epithelial Cells Occasional /LPF Urine Bacteria None /HPF (NONE) Urine Mucus Few /LPF (NONE/OCC) H Rhythm Strip Diag. Results Rhythm Strip Time: 12:58 EP Interpretation: yes Rate: 88 Rhythm: NSR, no PVC's, no ectopy CT/MRI/US Diagnostic Results CT/MRI/US Diagnostic Results : Impression Preliminary Findings Only See Final Report For Complete Findings CT ABDOMEN & PELVIS With Contrast: Motion throughout. Distended bowel. Thickening of the distal esophagus that may be from esophagitis. Small hiatal hernia No radiodense gallstones or pancreatitis. No hydronephrosis. Nonspecific sclerosis T9 Anasarca. Radiologist: Kolby Suarez M.D. Study ready at 14:35 and initial results transmitted at 14:54 Last Vital Signs Date Time Temp Pulse Resp B/P (MAP) Pulse Ox O2 Delivery O2 Flow Rate FiO2 09/20/19 11:39 98.1 98 16 115/79 98 Room Air Disposition: HOME, SELF-CARE Condition: Stable Scripts Docusate Sod/Senna (Docusate Sodium-Senna Tablet) 1 Each Tablet 1 CAP ORAL TWICE A DAY, #10 CAP 0 Refills Prov: Tad James MD 09/20/19 Polyethylene Glycol* (MIRALAX*) 17 Gm Powd.pack 17 GM ORAL DAILY, #30 PACKET Prov: Tad James MD 09/20/19 Referrals: NOT CHOSEN IPA/,REFERRING (PCP) [facility]. [facility] Patient Instructions: Constipation, Adult Additional Instructions: The patient was provided with discharge instructions, notified to follow-up with a primary care doctor and or specialist in the next 24-48 hours, and to return to the ED if they have worsening of their symptoms. Please note that this report is being documented using DRAGON technology. This can lead to erroneous entry secondary to incorrect interpretation by the dictating instrument. Tad James MD Sep 20, 2019 12:55
[2019-09-20 13:04] LABS: APPEARANCE,URINE CLEAR; BILIRUBIN, URINE NEGATIVE (NEGATIVE); GLUCOSE, URINE (UA) NEGATIVE (NEGATIVE); KETONES,URINE 1+ (NEGATIVE); LEUKOCYTE ESTERASE ,URINE 1+ (NEGATIVE); NITRITE,URINE NEGATIVE (NEGATIVE); PH,URINE 5 (4.5-8.0); PROTEIN,URINE 1+ (NEGATIVE); UROBILINOGEN,URINE 1 MG/DL (0.0-1.0)
[2019-09-20 13:05] LABS: COLOR,URINE YELLOW
--- NOTE | 2019-09-20 13:15 | NUR ---
ED Nurse Note: Pt taken to CT.
[2019-09-20] MEDS ORDERED: MIRALAX17 GM ORAL (14:50)
--- NOTE | 2019-09-20 14:54 | Diagnostic Imaging Report ---
Clinical Indication: Abdominal pain, constipation Technique: Patient given oral contrast. IV administration nonionic contrast. Venous phase spiral acquisition obtained through the abdomen and pelvis. Multiplanar reconstructions were generated. Total dose length product 1273 mGycm. CTDIvol(s) 21 mGy. Dose reduction achieved using automated exposure control Comparison: 09/01/2019 Findings: There is image degradation due to motion artifact. Moderate-sized sliding-type hiatal hernia again demonstrated. The distal esophageal wall is thickened. The stomach is mildly distended with gas. No definite downstream obstructing lesion is demonstrated. Previously demonstrated rectal distention has improved considerably, although the rectum remains mildly prominent and filled with feces. There is gaseous distention of the distal sigmoid colon without evidence of obstructive lesion. Considerable retained stool is seen elsewhere throughout the colon, which is diffusely upper limits of normal in caliber. Small bowel loops are diffusely upper limits of normal in caliber, without evidence of transition point. Contrast has traversed approximately long-term through the small bowel. No small bowel wall thickening. The gallbladder is contracted. The liver, bile ducts, pancreas, spleen, adrenals, kidneys are unremarkable. No retroperitoneal or mesenteric mass or adenopathy. No pelvic mass or adenopathy. Previously demonstrated rectal tube has been removed. The bones are unremarkable except for a T9 probable bone island. The included lung bases are grossly clear, degraded by motion artifact. Impression: Since 09/01/2019, interim marked improvement of previously demonstrated distal colonic distention. There may be some mild residual rectal fecal impaction Distal sigmoid colon distention without evidence of obstructive lesion, probably functional in nature Upper limits of normal caliber colon and small bowel elsewhere, probably functional in nature Hiatal hernia. Esophageal wall thickening could indicate esophagitis Incidental findings as noted This agrees with the preliminary interpretation provided overnight by [facility]. The CT scanner at [facility] is accredited by the [employer] and the scans are performed using protocols designed to limit radiation exposure to as low as reasonably achievable to attain images of sufficient resolution adequate for diagnostic evaluation.
[2019-09-20] MEDS ORDERED: PERI-COLACE1 EA ORAL (14:59)
[2019-09-20 16:25] VITALS: BP 118/79
--- NOTE | 2019-09-20 16:25 | NUR ---
ER DISCHARGE NOTE: Patient is cleared to be discharged per ERMD, pt is aox4, on room air, with stable vital signs. pt was given dc and prescription instructions, pt was able to verbalize understanding, pt id band and iv site removed without complications. pt is able to ambulate with steady gait. pt took all belongings. Pt given 2 prescriptions.
== END 2019-09-20 16:25 | disposition home or self-care (01) ==
LOC: EMR 12:37
DX: K59.00 Constipation, unspecified (principal)
CPT/HCPCS: 36415; 74177; 80053; 81003; 83690; 85025; 96361; 96374; 96375; J1200; J2765; J7030; Q9967; Z7502; 99284

== ENCOUNTER 2019-12-23 17:45 | Emergency (ER) | payer OTHER ==
[~2019-12-23] VITALS: Ht 154.9 cm; Wt 52.2 kg
[~2019-12-23 17:45] MED LIST changes: +MIRALAX17 GM ORAL; +PERI-COLACE1 EA ORAL
[2019-12-23 19:22] VITALS: BP 106/72
--- NOTE | 2019-12-23 19:22 | NUR ---
ED Nurse Note: Pt ambulated into ed from board and care facility with care partner [place] consistent vomiting since this morning after breakfast. 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 Pt care partner at bedside. VSS with elevated HR 99. Pt calm, cooperative, resting in bed. Awaiting ERMD at bedside
[2019-12-23] MEDS ORDERED: Omnipaque-300 100ml vial INJ PRN (19:30)
--- NOTE | 2019-12-23 19:35 | NUR ---
ED Nurse Note: ERPA at bedside
--- NOTE | 2019-12-23 19:40 | NUR ---
ED Nurse Note: all medications administered; pt tolerated well. no s/s of distress noted. no adverse reactions noted.
[2019-12-23] MEDS ORDERED: Ketorolac 30mg Inj IV ONE (19:45)
[2019-12-23 21:23] LABS: HEMATOCRIT 41.5 % (37.0-47.0); HEMOGLOBIN 13.4 G/DL (12.0-16.0); MEAN CORPUSCULAR VOLUME 83 FL (80-99); PLATELET COUNT 304 K/UL (150-450); RED BLOOD COUNT 5.01 M/UL (4.20-5.40); RED CELL DISTRIBUTION WIDTH 12.6 % (11.6-14.8); WHITE BLOOD COUNT 8.8 K/UL (4.8-10.8)
[2019-12-23 21:34] LABS: ALANINE AMINOTRANSFERASE 25 U/L (12-78); ALBUMIN 3.6 G/DL (3.4-5.0); ALBUMIN/GLOBULIN RATIO 0.9 (1.0-2.7); ALKALINE PHOSPHATASE 81 U/L (46-116); ANION GAP 9 mmol/L (5-15); ASPARTATE AMINO TRANSFERASE 19 U/L (15-37); BILIRUBIN,TOTAL 0.2 MG/DL (0.2-1.0); BLOOD UREA NITROGEN 19 mg/dL (7-18); CALCIUM 9.2 MG/DL (8.5-10.1); CARBON DIOXIDE 31 MMOL/L (21-32); CHLORIDE 110 MMOL/L (98-107); CREATININE 0.8 MG/DL (0.55-1.30); POTASSIUM 3.6 MMOL/L (3.5-5.1); SODIUM 150 MMOL/L (136-145)
[2019-12-23 21:42] VITALS: BP 112/75
--- NOTE | 2019-12-23 22:07 | NUR ---
ED Nurse Note: pt taken to CT in stable condition
--- NOTE | 2019-12-23 22:44 | Diagnostic Imaging Report ---
INDICATION: Abdominal pain TECHNIQUE: Continuous helical transaxial imaging of the abdomen and pelvis was obtained from the lung bases to the pubic symphysis during intravenous contrast administration. Coronal 2-D reformats were also obtained. Study obtained in a Siemens sensation [address] Automatic Exposure Control was utilized. Total Dose length Product (DLP): 293.[address] Dose Index Volume (CTDIvol): 10.9 mGy COMPARISON: None FINDINGS: Lungs: Hiatal hernia noted. Lung bases are clear.. Liver: Suboptimally imaged but grossly unremarkable Gallbladder/biliary system: Grossly unremarkable. No obvious biliary ductal dilatation seen.. Spleen: Unremarkable Pancreas: Unremarkable Kidneys/Bladder: No hydronephrosis identified. Both kidneys enhance symmetrically. The urinary bladder is unremarkable.. Adrenal glands: Unremarkable Aorta/IVC: Trace mural calcium noted within the aorta. No aneurysm seen. Bowel: Stomach is markedly distended. There are distended loops of small bowel mild in degree in a generalized fashion. There is a moderate amount of formed stool in the colon which is also distended. No compelling evidence for bowel obstruction. Peritoneum: No obvious free fluid. No pneumoperitoneum seen.. Bones: Unremarkable IMPRESSION: Gaseous distention of small bowel and stomach. Consider enteritis/ileus. Evaluation technically limited. Other findings as above. [facility] has communicated the preliminary results to the Emergency Department. Their findings are largely concordant with this report. The CT scanner at [facility] is accredited by the [employer] and the scans are performed using dose optimization techniques as appropriate to a performed exam including Automatic Exposure control.
[2019-12-23 22:50] LABS: INR 1.3 (0.9-1.1)
--- NOTE | 2019-12-23 22:59 | Emergency Room Report ---
History of Present Illness General Chief Complaint: Vomiting Source: Patient Present Illness HPI 49-year-old female with history of mental delay, and constipation as well as volvulus here with caregiver complaining of multiple bouts of emesis that started this morning. Denies any diarrhea, fever and chills, abdominal pain at this time. Has not taken medication for symptom relief. Is actively vomiting. Denies URI symptoms. Denies chest pain shortness of breath. COVID-19 risk:Contact w/high r: No COVID-19 risk:Travel to affect: No Has patient experienced fuentes: No Allergies: Coded Allergies: ERYTHROMYCIN BASE (Unverified Allergy, Unknown, 01/31/15) Patient History Past Medical History: see triage record Past Surgical History: none Pertinent Family History: none Last Menstrual Period: na Now: No : 1 Para: 1 Immunizations: UTD Reviewed Nursing Documentation: PMH: Agreed; PSxH: Agreed Nursing Documentation-PMH Hx Cardiac Problems: Yes - anemia Hx Asthma: Yes Hx Cancer: No Hx Gastrointestinal Problems: No Hx Neurological Problems: Yes - nonverbal mostly Review of Systems All Other Systems: negative except mentioned in HPI Physical Exam Vital Signs Date Time Temp Pulse Resp B/P (MAP) Pulse Ox O2 Delivery O2 Flow Rate FiO2 12/23/19 19:15 99 16 106/72 (83) 100 Room Air Sp02 EP Interpretation: reviewed, normal General Appearance: no apparent distress, alert, GCS 15, non-toxic Head: normocephalic, atraumatic Eyes: bilateral eye normal inspection, bilateral eye PERRL ENT: hearing grossly normal, normal pharynx, no angioedema, normal voice Neck: full range of motion, supple, thyroid normal, no meningismus, supple/symm /no masses Respiratory: chest non-tender, lungs clear, normal breath sounds, no rhonchi, no respiratory distress, no wheezing, speaking full sentences Cardiovascular #1: regular rate, rhythm, no edema, no murmur, normal capillary refill Gastrointestinal: normal bowel sounds, non tender, soft, non-distended, no guarding, no rebound Rectal: deferred Genitourinary: no CVA tenderness Musculoskeletal: back normal, normal range of motion, non-tender Neurologic: alert, motor strength/tone normal, oriented x3, sensory intact, responsive, speech normal Psychiatric: judgement/insight normal, memory normal, mood/affect normal, no suicidal/homicidal ideation Skin: no rash Lymphatic: no adenopathy Medical Decision Making PA Attestation All my diagnosis and treatment plans were reviewed ad discussed with my supervising physician Dr. Ko Diagnostic Impression: Primary Impression: Constipation Additional Impression: Nausea & vomiting ER Course 49-year-old female with history of mental delay, and constipation as well as volvulus here with caregiver complaining of multiple bouts of emesis that started this morning. Denies any diarrhea, fever and chills, abdominal pain at this time. Has not taken medication for symptom relief. Is actively vomiting. Denies URI symptoms. Denies chest pain shortness of breath. Ddx considered but are not limited to: Volvulus ,appendicitis, cholecystis, gastritis, gastroenteritis, UTI, pylonephritis, SBO, diverticulitis, constipation Vital signs: are WNL, pt. is afebrile H&PE are most consistent with: Constipation ORDERS: abdominal CT, abdominal pain set, EKG, Colace, MiraLAX, Zofran ED INTERVENTIONS: NS bolus, Zofran, Pepcid, Toradol DISCHARGE: At this time pt. is stable for d/c to home. Will provide printed patient care instructions, and any necessary prescriptions. Care plan and follow up instructions have been discussed with the patient prior to discharge. Take medication as directed, increase fiber intake, follow-up primary care doctor, if worsening symptoms return to the emergency room there has been no change to the BUN/creatinine as well as CT scan since last time patient was here EKG Diagnostic Results Rate: normal Rhythm: NSR ST Segments: no acute changes Other Impression No acute ST changes CT/MRI/US Diagnostic Results CT/MRI/US Diagnostic Results : Imaging Test Ordered: CT abdomen pelvis with contrast Impression CT ABDOMEN & PELVIS With Contrast: Comparison: 09/20/19 No change moderate hiatal hernia. No acute findings identified involving the solid abdominal organs. Moderate gaseous and stool distention of the colon. Negative for lower GI tract obstruction or pneumatosis. Segments of mild small bowel wall thickening are nonspecific but can be seen with mild acute enteritis. The appendix was not visualized. Negative for pneumoperitoneum. Last Vital Signs Date Time Temp Pulse Resp B/P (MAP) Pulse Ox O2 Delivery O2 Flow Rate FiO2 12/23/19 19:15 99 16 106/72 (83) 100 Room Air Disposition: HOME, SELF-CARE Condition: Stable Scripts Polyethylene Glycol 3350* (MIRALAX*) 17 Gm Powd.pack 17 GM ORAL DAILY, #10 PACKET Prov: Kehinde Lowe 12/23/19 Docusate Sodium* (COLACE*) 100 Mg Capsule 100 MG ORAL TWICE A DAY, #20 CAP Prov: Kehinde Lowe 12/23/19 Ondansetron (Zofran) 4 Mg Tablet 4 MG ORAL Q6H PRN for Nausea & Vomiting, #14 TAB Prov: Kehinde Lowe 12/23/19 Referrals: [facility],REFERRING (PCP) Patient Instructions: Constipation, Adult, [id number], Nausea and Vomiting, Adult Additional Instructions: Increase fiber intake, increase oral hydration, follow-up primary care doctor, no change has been notified in the CT scan since last time that she was here. Kehinde Lowe Dec 23, 2019 22:59
[2019-12-23 23:00] VITALS: BP 111/73
[2019-12-23] MEDS ORDERED: ZOFRAN4 M1 ORAL (23:00)
[2019-12-23] MEDS ORDERED: MIRALAX17 G2 ORAL (23:00)
[2019-12-23] MEDS ORDERED: COLACE100 MG ORAL (23:00)
--- NOTE | 2019-12-23 23:00 | NUR ---
ED Nurse Note: ERPA at bedside
[2019-12-23 23:08] VITALS: BP 112/75
--- NOTE | 2019-12-23 23:08 | NUR ---
ER DISCHARGE NOTE: Patient is cleared to be discharged home with career representative per ERMD, pt is aox4, on room air, with stable vital signs. pt career representative was given dc and prescription instructions, pt career representative was able to verbalize understanding, pt id band and iv site removed without complications. pt is able to ambulate with steady gait. pt took all belongings.
== END 2019-12-23 23:08 | disposition home or self-care (01) ==
LOC: EMR 20:00
DX: K59.00 Constipation, unspecified (principal); R11.2 Nausea with vomiting, unspecified; Z88.8 Allergy status to other drugs, medicaments and biological substances
CPT/HCPCS: 36415; 74177; 80053; 83690; 84484; 85007; 85025; 85610; 85730; 86850; 86900; 86901; 93005; 96361; 96374; 96375; J1885; J2405; J7030; Q9967; Z7502; 99284

== ENCOUNTER 2020-02-18 22:08 | Emergency (ER) | payer OTHER ==
[~2020-02-18] VITALS: Ht 162.6 cm; Wt 53.1 kg
[~2020-02-18 22:08] MED LIST changes: +COLACE100 MG ORAL; +MIRALAX17 G2 ORAL; +VITAMIN D3 COM1 EACH PO; +ZOFRAN4 M1 ORAL
[2020-02-18 22:40] VITALS: BP 118/77
--- NOTE | 2020-02-18 22:40 | NUR ---
ED Nurse Note: Pt walked into ED with caregiver for c/o nonspecific abdominal pain. Pt is unable to describe pain, but caregiver notes increased abdominal distention and pt not acting like herself. Pt is awake and alert, breathing is normal and unlabored. NAD. Abdominal distention noted. Caregiver states pt has been having normal BM. Safety measures in place, will cont. to monitor.
[2020-02-18] MEDS ORDERED: Omnipaque-300 100ml vial INJ PRN (23:15)
--- NOTE | 2020-02-18 23:30 | NUR ---
ED Nurse Note: IV access obtained and blood sent to lab.
[2020-02-18 23:45] LABS: EOSINOPHILS % (AUTO) 1.7 % (0.0-3.0); LYMPHOCYTES % (AUTO) 14.2 % (20.0-45.0); MEAN CORPUSCULAR VOLUME 81 FL (80-99); NEUTROPHILS % (AUTO) 75.1 % (45.0-75.0); PLATELET COUNT 302 K/UL (150-450); RED BLOOD COUNT 4.34 M/UL (4.20-5.40); WHITE BLOOD COUNT 7.7 K/UL (4.8-10.8)
[2020-02-18 23:50] LABS: ANION GAP 9 mmol/L (5-15); BLOOD UREA NITROGEN 10 mg/dL (7-18); CALCIUM 8.9 MG/DL (8.5-10.1); CARBON DIOXIDE 27 MMOL/L (21-32); CHLORIDE 106 MMOL/L (98-107); CREATININE 0.7 MG/DL (0.55-1.30); SODIUM 142 MMOL/L (136-145)
[2020-02-18 23:53] LABS: INR 1.1 (0.9-1.1)
[2020-02-18 23:55] LABS: ALANINE AMINOTRANSFERASE 20 U/L (12-78); ALBUMIN 3.2 G/DL (3.4-5.0); ALBUMIN/GLOBULIN RATIO 0.8 (1.0-2.7); ALKALINE PHOSPHATASE 79 U/L (46-116); ASPARTATE AMINO TRANSFERASE 32 U/L (15-37); BILIRUBIN,TOTAL 0.3 MG/DL (0.2-1.0)
--- NOTE | 2020-02-19 | NUR ---
ED Nurse Note: Urine specimen obtained and sent to lab.
[2020-02-19 00:11] LABS: APPEARANCE,URINE CLEAR; BILIRUBIN, URINE NEGATIVE (NEGATIVE); COLOR,URINE PALE YELLOW; GLUCOSE, URINE (UA) NEGATIVE (NEGATIVE); KETONES,URINE NEGATIVE (NEGATIVE); LEUKOCYTE ESTERASE ,URINE 1+ (NEGATIVE); NITRITE,URINE NEGATIVE (NEGATIVE); PH,URINE 6 (4.5-8.0); PROTEIN,URINE 2+ (NEGATIVE); UROBILINOGEN,URINE 1 MG/DL (0.0-1.0)
--- NOTE | 2020-02-19 01:04 | Diagnostic Imaging Report ---
EXAM: CT Abdomen and Pelvis With Intravenous Contrast CLINICAL HISTORY: ABD PAIN TECHNIQUE: Axial computed tomography images of the abdomen and pelvis with intravenous contrast. CTDI is 4.2 mGy and DLP is 194.6 mGy-cm. One or more of the following dose reduction techniques were used: automated exposure control, adjustment of the mA and/or kV according to patient size, use of iterative reconstruction technique. COMPARISON: 12/23/2019. FINDINGS: Lung bases: Unremarkable. No mass. No consolidation. Heart: Clear lung bases. Borderline cardiomegaly. ABDOMEN: Liver: Unremarkable. No mass. Gallbladder and bile ducts: Unremarkable. No calcified stones. No ductal dilation. Pancreas: Unremarkable. No mass. No ductal dilation. Spleen: Unremarkable. No splenomegaly. Adrenals: Unremarkable. No mass. Kidneys and ureters: Unremarkable. No solid mass. No hydronephrosis. Stomach and bowel: Moderate to large hiatal hernia. Stomach is otherwise decompressed. Unremarkable small bowel. Marked distention of a portion of likely sigmoid with the beaking and is severe narrowing distally, raising the concern of sigmoid volvulus. No mucosal thickening. PELVIS: Appendix: Normal appendix. Bladder: Decompressed urinary bladder, remainder of the pelvic structures unremarkable. Reproductive: Unremarkable as visualized. ABDOMEN and PELVIS: Intraperitoneal space: Unremarkable. No free air. No significant fluid collection. Bones/joints: Osteopenia. No acute fracture. No dislocation. Soft tissues: There is minimal amount of fat which makes distinction of structures difficult. Vasculature: Unremarkable. No abdominal aortic aneurysm. Lymph nodes: Unremarkable. No enlarged lymph nodes. IMPRESSION: 1. Findings suggestive of sigmoid volvulus. Differential diagnosis includes severe stricture of the sigmoid. No acute appendicitis. 2. Unremarkable abdominal viscera.
[2020-02-19 01:30] VITALS: BP 121/74
--- NOTE | 2020-02-19 01:30 | NUR ---
ED Nurse Note: Pt is resting in bed, NAD. Pt provided with warm blankets and repositioned. VSS.
--- NOTE | 2020-02-19 02:05 | Emergency Room Report ---
History of Present Illness General Chief Complaint: Abdominal Pain Source: Patient Present Illness HPI Patient is a 49-year-old female brought in by caregiver for increased abdominal distention. Patient had reportedly had increased abdominal pain as well as increased firmness to her abdomen. 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 Had previous hospitalization at [facility] for similar symptoms in the past. Patient had not been having any vomiting. Reports having some initial pain. History is obtained from caregiver and patient is poor historian Allergies: Coded Allergies: ERYTHROMYCIN BASE (Unverified Allergy, Unknown, 01/31/15) COVID-19 Screening Contact w/high risk pt: No Recent Travel to affected area: No Experienced COVID-19 symptoms?: No COVID-19 Testing performed FINANCE CONSULTANT: No Patient History Past Medical History: see triage record Last Menstrual Period: depo Now: No : 1 Para: 1 Reviewed Nursing Documentation: PMH: Agreed; PSxH: Agreed Nursing Documentation-PMH Hx Cardiac Problems: Yes - anemia Hx Asthma: Yes Hx Cancer: No Hx Gastrointestinal Problems: No Hx Neurological Problems: Yes - nonverbal mostly Review of Systems All Other Systems: negative except mentioned in HPI Physical Exam Vital Signs Date Time Temp Pulse Resp B/P (MAP) Pulse Ox O2 Delivery O2 Flow Rate FiO2 02/18/20 22:13 Room Air 02/18/20 22:40 97.2 95 21 118/77 99 Sp02 EP Interpretation: reviewed, normal General Appearance: normal inspection, well appearing, no apparent distress, alert, GCS 15 Head: atraumatic ENT: normal ENT inspection, hearing grossly normal, normal voice Neck: normal inspection, full range of motion, supple, no bony tend Respiratory: normal inspection, lungs clear, normal breath sounds, no respiratory distress, no retraction, no wheezing Cardiovascular #1: regular rate, rhythm, no edema Gastrointestinal: normal inspection, normal bowel sounds, non tender, soft, no guarding, no hernia Genitourinary: no CVA tenderness Musculoskeletal: normal inspection, back normal, normal range of motion Neurologic: alert, responsive, speech normal, normal inspection Psychiatric: normal inspection, judgement/insight normal, mood/affect normal Medical Decision Making Diagnostic Impression: Primary Impression: Abdominal distension Additional Impression: UTI (urinary tract infection) ER Course Patient presented for abdominal pain and distention. Differential diagnosis includes not limited to sigmoid volvulus, fecal impaction, urinary tract infection among others. Because of complexity of patient's case laboratory tests and imaging studies were ordered. Patient was noted to have fairly distended abdomen. I CT imaging was ordered to patient's prior history of sigmoid volvulus. CT imaging read by radiology showed market distention of the portion of the likely sigmoid with beaking and severe narrowing distally raising concern of sigmoid volvulus no mucosal thickening. Patient will be hospitalized for further evaluation and treatment of abdominal distention. Dr. Whyte will be contacted for transfer to [facility]. Labs Test 02/18/20 23:30 02/18/20 23:55 White Blood Count 7.7 K/UL (4.8-10.8) Red Blood Count 4.34 M/UL (4.20-5.40) Hemoglobin 12.0 G/DL (12.0-16.0) Hematocrit 35.0 % (37.0-47.0) Mean Corpuscular Volume 81 FL (80-99) Mean Corpuscular Hemoglobin 27.7 PG (27.0-31.0) Mean Corpuscular Hemoglobin Concent 34.4 G/DL (32.0-36.0) Red Cell Distribution Width 11.0 % (11.6-14.8) Platelet Count 302 K/UL (150-450) Mean Platelet Volume 5.9 FL (6.5-10.1) Neutrophils (%) (Auto) 75.1 % (45.0-75.0) Lymphocytes (%) (Auto) 14.2 % (20.0-45.0) Monocytes (%) (Auto) 8.0 % (1.0-10.0) Eosinophils (%) (Auto) 1.7 % (0.0-3.0) Basophils (%) (Auto) 1.0 % (0.0-2.0) Prothrombin Time 11.3 SEC (9.30-11.50) Prothromb Time International Ratio 1.1 (0.9-1.1) Activated Partial Thromboplast Time 26 SEC (23-33) Sodium Level 142 MMOL/L (136-145) Potassium Level 4.0 MMOL/L (3.5-5.1) Chloride Level 106 MMOL/L (98-107) Carbon Dioxide Level 27 MMOL/L (21-32) Anion Gap 9 mmol/L (5-15) Blood Urea Nitrogen 10 mg/dL (7-18) Creatinine 0.7 MG/DL (0.55-1.30) Estimat Glomerular Filtration Rate > 60 mL/min (>60) Glucose Level 94 MG/DL (74-106) Calcium Level 8.9 MG/DL (8.5-10.1) Total Bilirubin 0.3 MG/DL (0.2-1.0) Aspartate Amino Transf (AST/SGOT) 32 U/L (15-37) Alanine Aminotransferase (ALT/SGPT) 20 U/L (12-78) Alkaline Phosphatase 79 U/L (46-116) Total Protein 7.3 G/DL (6.4-8.2) Albumin 3.2 G/DL (3.4-5.0) Globulin 4.1 g/dL Albumin/Globulin Ratio 0.8 (1.0-2.7) Lipase 287 U/L (73-393) Urine Color Pale yellow Urine Appearance Clear Urine pH 6 (4.5-8.0) Urine Specific [place] 1.020 (1.005-1.035) Urine Protein 2+ (NEGATIVE) Urine Glucose (UA) Negative (NEGATIVE) Urine Ketones Negative (NEGATIVE) Urine Blood Negative (NEGATIVE) Urine Nitrite Negative (NEGATIVE) Urine Bilirubin Negative (NEGATIVE) Urine Urobilinogen 1 MG/DL (0.0-1.0) Urine Leukocyte Esterase 1+ (NEGATIVE) Urine RBC 0-2 /HPF (0 - 2) Urine WBC 10-15 /HPF (0 - 2) Urine Squamous Epithelial Cells Few /LPF (NONE/OCC) Urine Bacteria Few /HPF (NONE) Last Vital Signs Date Time Temp Pulse Resp B/P (MAP) Pulse Ox O2 Delivery O2 Flow Rate FiO2 02/18/20 22:40 95 21 Room Air 02/18/20 22:40 97.2 118/77 99 Status: unchanged Disposition: SHORT-TERM HOSP Condition: Stable Referrals: [facility],REFERRING (PCP) Jarad Steiner MD February 19, 2020 02:05
--- NOTE | 2020-02-19 02:30 | NUR ---
ED Nurse Note: Pt is sleeeping at this time, no signs of distress.
--- NOTE | 2020-02-19 03:00 | NUR ---
ED Nurse Note: Report given to ROGELIO Smith at [facility].
[2020-02-19 03:25] VITALS: BP 118/80
--- NOTE | 2020-02-19 03:25 | NUR ---
ED Nurse Note: Pt is stable for transfer to [place] unit at [facility] at this time per ERMD. Pt is awake, alert and breathing is normal and unlabored. Pt vital signs are stable, NAD. Pt being transported via gurney by [facility] ambulance unit 91. Voicemail left for Kady who is caregiver at [phone] and updated on transfer. Pt belongings sent with pt. Pt IV is patent and intact.
== END 2020-02-19 03:25 | disposition short-term general hospital (02) ==
LOC: EMR 22:32
DX: R14.0 Abdominal distension (gaseous) (principal); N39.0 Urinary tract infection, site not specified; Z88.8 Allergy status to other drugs, medicaments and biological substances; K44.9 Diaphragmatic hernia without obstruction or gangrene
CPT/HCPCS: 36415; 74177; 80053; 81003; 83690; 85025; 85610; 85730; 87086; Q9967; Z7502; 99284

== ENCOUNTER 2020-06-11 00:37 | Emergency (ER) | payer OTHER ==
[~2020-06-11] VITALS: Ht 167.6 cm; Wt 59.0 kg
[2020-06-11] MEDS ORDERED: PANTOPRAZOLE SO40 MG ORAL (00:52)
[2020-06-11] MEDS ORDERED: ACETAMINOPHEN120 MG RECTAL (00:52)
[2020-06-11] MEDS ORDERED: VITAMIN D3100 GM MC (00:52)
[2020-06-11] MEDS ORDERED: POTASSIUM CHLO20 ME2 ORAL (00:52)
[2020-06-11] MEDS ORDERED: DiphenhydrAMINE 50mg/ml Inj IVP ONE (01:15)
[2020-06-11] MEDS ORDERED: Metoclopramide 10mg/2ml Inj IVP ONE (01:15)
--- NOTE | 2020-06-11 01:22 | Emergency Room Report ---
History of Present Illness General Chief Complaint: Vomiting Source: Medical Record, EMS, PMD Present Illness HPI Patient has been vomiting daily for the last week. She has developmental delay and is unable to answer most questions. She is sent by senior care facility for evaluation of the vomiting. Her private physician called and stated that she has been vomiting for a week. RN states purulent urine in teague present when patient arrived. Patient last admitted August 2019. Discharge dx: Nausea and vomiting with diarrhea-resolved Probably gastroenteritis Leukocytosis -resolved Pyuria , probably UTI Possible sepsis Hypokalemia -corrected Abdominal distention Developmental delay Electrolyte abnormality Dehydration Anxiety disorder Allergies: Coded Allergies: AZITHROMYCIN (Verified Allergy, Unknown, 06/11/20) ERYTHROMYCIN BASE (Unverified Allergy, Unknown, 01/31/15) COVID-19 Screening Contact w/high risk pt: No Recent Travel to affected area: No Experienced COVID-19 symptoms?: No COVID-19 Testing performed PLANT ACCOUNTANT: Yes - 05-17-2020 COVID-19 Screening: Negative COVID-19 COVID-19 Testing Source: [facility] Patient History Limited by: medical condition Past Medical History: see triage record, old chart reviewed Social History: Denies: smoking, alcohol use, drug use Social History Narrative [facility] Reviewed Nursing Documentation: PMH: Agreed; PSxH: Agreed Nursing Documentation-PMH Hx Cardiac Problems: Yes - anemia Hx Asthma: Yes Hx Cancer: No Hx Gastrointestinal Problems: Yes - colostomy , GERD Hx Neurological Problems: Yes - nonverbal mostly, Paraplegia Review of Systems All Other Systems: limited Physical Exam Vital Signs Date Time Temp Pulse Resp B/P (MAP) Pulse Ox O2 Delivery O2 Flow Rate FiO2 06/11/20 00:38 98.1 120 16 108/79 (89) 95 Room Air Sp02 EP Interpretation: reviewed, normal General Appearance: alert - not answering, thin, Chronically Ill Eyes: bilateral eye normal inspection, bilateral eye PERRL, bilateral eye EOMI ENT: dry mucus membranes Neck: supple Respiratory: lungs clear, normal breath sounds Cardiovascular #1: tachycardia Cardiovascular #2: 2+ radial (L) Gastrointestinal: soft, non-distended, no guarding, no rebound, tenderness - minimal , decreased bowel sounds Genitourinary: no CVA tenderness, other - teague with turbid urine Musculoskeletal: back normal, other - contractures, knees, boutoniere deformities of hands Neurologic: alert - but not answering, other - Atrophy Psychiatric: other - apprehensive?/ follows examiner, but not answer or follow commands Reflexes: 1+ knee (R), 1+ knee (L) Skin: no rash, warm/dry Medical Decision Making Diagnostic Impression: Primary Impression: Persistent vomiting Additional Impressions: UTI (urinary tract infection) Qualified Codes: T83.511A - Infection and inflammatory reaction due to indwelling urethral catheter, initial encounter; N39.0 - Urinary tract infection , site not specified Alkalosis ER Course The patient presents with persistent vomiting. She is unable to give a history. She chronically is ill and appears dehydrated at this time. The Te[place] catheter appears turbid and there is a high suspicion for urinary tract infection. Consideration for electrolyte abnormalities and dehydration. The patient also has had a history of volvulus. Very complex patient. Patient evaluated with EKG, chest x-ray and labs. Also abdominal film will be obtained. EKG without injury. Chest x-ray no infiltrates. Abdomen with some distended loops of bowel but no suggestion of bowel obstruction. White count normal. CMP with elevated bicarb. Normal potassium. Urine with too numerous to count white cells. Discussed with employment evaluator/case manager. Discussed with Dr. Pinto who accepts the patient. Covering UTI with Rocephin and gentamicin. Patient improved with IV hydration. Still abulic. Laboratory Tests Test 06/11/20 02:45 06/11/20 03:50 White Blood Count 8.7 K/UL (4.8-10.8) Red Blood Count 5.15 M/UL (4.20-5.40) Hemoglobin 13.4 G/DL (12.0-16.0) Hematocrit 42.0 % (37.0-47.0) Mean Corpuscular Volume 82 FL (80-99) Mean Corpuscular Hemoglobin 26.1 PG (27.0-31.0) L Mean Corpuscular Hemoglobin Concent 32.0 G/DL (32.0-36.0) Red Cell Distribution Width 12.2 % (11.6-14.8) Platelet Count 388 K/UL (150-450) Mean Platelet Volume 5.1 FL (6.5-10.1) L Neutrophils (%) (Auto) 68.6 % (45.0-75.0) Lymphocytes (%) (Auto) 18.8 % (20.0-45.0) L Monocytes (%) (Auto) 8.5 % (1.0-10.0) Eosinophils (%) (Auto) 0.5 % (0.0-3.0) Basophils (%) (Auto) 3.6 % (0.0-2.0) H Prothrombin Time 11.4 SEC (9.30-11.50) Prothrombin Time INR 1.0 (0.9-1.1) Activated Partial Thromboplast Time > 150 SEC (23-33) *H Sodium Level 140 MMOL/L (136-145) Potassium Level 3.6 MMOL/L (3.5-5.1) Chloride Level 101 MMOL/L (98-107) Carbon Dioxide Level 33 MMOL/L (21-32) H Anion Gap 6 mmol/L (5-15) Blood Urea Nitrogen 15 mg/dL (7-18) Creatinine 0.7 MG/DL (0.55-1.30) Estimated Glomerular Filtration Rate > 60 mL/min (>60) Glucose Level 88 MG/DL (74-106) Calcium Level 9.4 MG/DL (8.5-10.1) Total Bilirubin 0.4 MG/DL (0.2-1.0) Aspartate Amino Transferase (AST) 19 U/L (15-37) Alanine Aminotransferase (ALT) 21 U/L (12-78) Alkaline Phosphatase 108 U/L (46-116) Troponin I 0.000 ng/mL (0.000-0.056) Total Protein 8.5 G/DL (6.4-8.2) H Albumin 2.4 G/DL (3.4-5.0) L Globulin 6.1 g/dL Albumin/Globulin Ratio 0.4 (1.0-2.7) L Lipase 261 U/L (73-393) Urine Color Yellow Urine Appearance Cloudy Urine pH 6 (4.5-8.0) Urine Specific [place] 1.020 (1.005-1.035) Urine Protein 2+ (NEGATIVE) H Urine Glucose (UA) Negative (NEGATIVE) Urine Ketones 1+ (NEGATIVE) H Urine Blood 4+ (NEGATIVE) H Urine Nitrite Negative (NEGATIVE) Urine Bilirubin Negative (NEGATIVE) Urine Urobilinogen Normal MG/DL (0.0-1.0) Urine Leukocyte Esterase 3+ (NEGATIVE) H Urine RBC 40-60 /HPF (0 - 2) H Urine WBC Tntc /HPF (0 - 2) H Urine Squamous Epithelial Cells Few /LPF (NONE/OCC) Urine Bacteria Many /HPF (NONE) H EKG Diagnostic Results Rate: tachycardiac Rhythm: NSR ST Segments: no acute changes Rhythm Strip Diag. Results EP Interpretation: yes Rhythm: no PVC's, no ectopy, other - Sinus tachycardia 119 Chest X-Ray Diagnostic Results Chest X-Ray Diagnostic Results : Chest X-Ray Ordered: Yes # of Views/Limited/Complete: 1 View Indication: Other EP Interpretation: Yes Interpretation: no consolidation, no effusion, no pneumothorax Impression: No acute disease - Electronically signed by Adair Aceves MD Other X-Ray Diagnostic Results Other X-Ray Diagnostic Results : X-Ray ordered: Abdomen # of Views/Limited Vs Complete: 1 View Indication: Other EP Interpretation: Yes Interpretation: nonspecific bowel gas, no sbo, other - Some distended loops of bowel Impression: Other Electronically Signed by: Electronically signed by Adair Aceves MD Last Vital Signs Date Time Temp Pulse Resp B/P (MAP) Pulse Ox O2 Delivery O2 Flow Rate FiO2 06/11/20 07:09 98.1 108 20 104/67 100 Room Air Status: improved Disposition: SHORT-TERM HOSP Condition: Serious Referrals: Pipe Farah DO (PCP) Adair Aceves MD Jun 11, 2020 01:22
[2020-06-11 02:58] LABS: BASOPHILS % (AUTO) 3.6 % (0.0-2.0); EOSINOPHILS % (AUTO) 0.5 % (0.0-3.0); HEMOGLOBIN 13.4 G/DL (12.0-16.0); LYMPHOCYTES % (AUTO) 18.8 % (20.0-45.0); MEAN CORPUSCULAR VOLUME 82 FL (80-99); MONOCYTES % (AUTO) 8.5 % (1.0-10.0); NEUTROPHILS % (AUTO) 68.6 % (45.0-75.0); PLATELET COUNT 388 K/UL (150-450); RED BLOOD COUNT 5.15 M/UL (4.20-5.40); RED CELL DISTRIBUTION WIDTH 12.2 % (11.6-14.8); WHITE BLOOD COUNT 8.7 K/UL (4.8-10.8)
[2020-06-11 03:06] LABS: ANION GAP 6 mmol/L (5-15); BLOOD UREA NITROGEN 15 mg/dL (7-18); CALCIUM 9.4 MG/DL (8.5-10.1); CARBON DIOXIDE 33 MMOL/L (21-32); CHLORIDE 101 MMOL/L (98-107); CREATININE 0.7 MG/DL (0.55-1.30); POTASSIUM 3.6 MMOL/L (3.5-5.1); SODIUM 140 MMOL/L (136-145)
[2020-06-11 03:10] LABS: ALANINE AMINOTRANSFERASE 21 U/L (12-78); ALBUMIN 2.4 G/DL (3.4-5.0); ALBUMIN/GLOBULIN RATIO 0.4 (1.0-2.7); ALKALINE PHOSPHATASE 108 U/L (46-116); ASPARTATE AMINO TRANSFERASE 19 U/L (15-37); BILIRUBIN,TOTAL 0.4 MG/DL (0.2-1.0)
[2020-06-11 03:28] VITALS: BP 108/71
--- NOTE | 2020-06-11 03:29 | Diagnostic Imaging Report ---
EXAM: XR Abdomen, 2 Views CLINICAL HISTORY: ABD PAIN TECHNIQUE: Frontal view of the abdomen/pelvis with upright view of the abdomen. COMPARISON: No relevant prior studies available. FINDINGS: Intraperitoneal space: No free air. Gastrointestinal tract: Unremarkable. No dilation. Bones/joints: Unremarkable. IMPRESSION: No acute findings.
--- NOTE | 2020-06-11 03:30 | Diagnostic Imaging Report ---
EXAM: XR Chest, 1 View CLINICAL HISTORY: ABD PAIN TECHNIQUE: Frontal view of the chest. COMPARISON: No relevant prior studies available. FINDINGS: Lungs: Unremarkable. No consolidation. Pleural space: Unremarkable. No pneumothorax. Heart: Unremarkable. No cardiomegaly. Mediastinum: Unremarkable. Bones/joints: Unremarkable. IMPRESSION: No radiographic evidence of acute cardiopulmonary disease.
[2020-06-11 03:48] VITALS: BP 108/71
[2020-06-11 04:01] LABS: BILIRUBIN, URINE NEGATIVE (NEGATIVE); GLUCOSE, URINE (UA) NEGATIVE (NEGATIVE); KETONES,URINE 1+ (NEGATIVE); LEUKOCYTE ESTERASE ,URINE 3+ (NEGATIVE); NITRITE,URINE NEGATIVE (NEGATIVE); PH,URINE 6 (4.5-8.0); PROTEIN,URINE 2+ (NEGATIVE); UROBILINOGEN,URINE NORMAL MG/DL (0.0-1.0)
[2020-06-11 04:08] LABS: PARTIAL THROMBOPLASTIN TIME > 150 SEC (23-33)
[2020-06-11 04:10] LABS: COLOR,URINE YELLOW
[2020-06-11 04:32] LABS: APPEARANCE,URINE CLOUDY
[2020-06-11] MEDS ORDERED: cefTRIAXone 1 GM in NS 55 ML IVPB ONE (04:45)
[2020-06-11 07:09] VITALS: BP 104/67
--- NOTE | 2020-06-15 01:39 | Cardiology Report ---
APPROVED REPORT EKG Measurement Heart [id number] <Conclusion> Sinus tachycardia Otherwise normal ECG
== END 2020-06-11 07:10 | disposition short-term general hospital (02) ==
LOC: EDBD 00:37 → EMR 00:59
DX: R11.10 Vomiting, unspecified (principal); T83.511A Infection and inflammatory reaction due to indwelling urethral catheter, initial encounter; E87.3 Alkalosis; N39.0 Urinary tract infection, site not specified; X58.XXXA Exposure to other specified factors, initial encounter; Y92.9 Unspecified place or not applicable; F41.9 Anxiety disorder, unspecified; Z88.8 Allergy status to other drugs, medicaments and biological substances; K21.9 Gastro-esophageal reflux disease without esophagitis; G82.20 Paraplegia, unspecified; R00.0 Tachycardia, unspecified
CPT/HCPCS: 36415; 71045; 74018; 80053; 81003; 83690; 84484; 85025; 85610; 85730; 87086; 87181; 93005; 96361; 96365; 96367; 96375; J0696; J1200; J1580; J2765; J7030; S0028; Z7502; 99285